=== PATIENT | male | born 1985 | race Two or more races ===

== ENCOUNTER 2025-03-27 00:11 | Inpatient (IN) | payer OTHER, SELFPAY ==
[2025-03-27] VITALS (13 sets, daily range): BP systolic 97–121; BP diastolic 57–89; PULSE 86–124; RESP 14–99; TEMP 37.3–39; O2SAT 95–100; BMI 24.3; BMI 21.4
--- NOTE | 2025-03-27 00:36 | PD.EDSEIZ ---
ED Seizures RME/HPI General Chief Complaint: Seizure Stated Complaint: SEIZURES Arrival date/time: 03/27/25 00:11 RME / HPI RME / HPI Narrative: Dr. Linn?s Main ED Evaluation: 39yo male with a history of seizure disorder BIBA from home presents to the ED for a chief complaint of seizure. Per EMS, patient had 4 seizures today. Patient is on Keppra 1000mg BID, but it's unknown if he is compliant. Patient is a poor historian at this time and is not answering any questions. Related Data Home Medications ?Medication ?Instructions ?Recorded ?Confirmed No Known Home Medications 07/31/17 07/23/18 Allergies Allergy/AdvReac Type Severity Reaction Status Date / Time No Known Allergies Allergy Verified 07/22/18 18:00 Review of Systems Review of Systems ROS Unobtainable: other (unobtainable due to the patient being a poor historian) Past Medical History Past Medical History NEUROLOGIC: Positive Seizures CARDIAC: Negative Congestive Heart Failure RESPIRATORY: Negative Chronic Obstructive Pulmonary Disease (COPD) GENITOURINARY: Negative Renal Disease ENDOCRINE: Negative Diabetes Mellitus Type 1 or Diabetes Mellitus Type 2 Social History SMOKING STATUS: Unknown if ever smoked ED Exam Narrative Physical exam: Generally patient is alert and chronically ill-appearing, head is normocephalic atraumatic, eyes pupils equal round reactive to light, heart tachycardic rate with regular rhythm, lungs clear to auscultation equal bilaterally, abdomen soft bowel sounds present nondistended nontender, extremities show no edema, neurologic exam shows the patient to be alert follows commands seems to be somewhat confused but no obvious distress Course Course Course Narrative: CXR is ordered for determining the etiology of fever. Quality Measures none Orders Category Date Time Status Bedside COVID-19 Antigen Test NOW Care 03/27/25 02:17 Active IV [Insert IV] NOW Care 03/27/25 00:56 Active XR chest 1V portable Stat Exams 03/27/25 02:03 Taken Alcohol, Blood Medical Stat Lab 03/27/25 00:55 Completed CBC Stat Lab 03/27/25 00:55 Completed CMP [Comprehensive Metabolic Panel] Stat Lab 03/27/25 00:55 Completed Influenza A & B Rapid Panel Stat Lab 03/27/25 03:20 Completed UA [Urinalysis] Stat Lab 03/27/25 02:03 Ordered Acetaminophen Tab [Tylenol Tab] Med 03/27/25 03:29 Discontinued 650 mg PO X1 ONE Midazolam Inj [Versed Inj] Med 03/27/25 01:01 Discontinued 10 mg .ROUTE .STK-MED ONE Midazolam Inj [Versed Inj] Med 03/27/25 00:59 Discontinued 10 mg IVP X1 ONE Midazolam Inj [Versed Inj] Med 03/27/25 00:59 Discontinued 10 mg IVP X1 ONE levETIRAcetam INJ [Keppra Inj] Med 03/27/25 00:42 Discontinued 1,000 mg IVP X1 ONE Vital Signs Vital signs: Vital Signs Temperature 100.9 F H 03/27/25 00:20 Pulse Rate 118 H 03/27/25 00:20 Respiratory Rate 16 03/27/25 00:20 Blood Pressure 109/60 03/27/25 00:20 Pulse Oximetry (%) 98 03/27/25 00:20 Oxygen Delivery Method Room Air 03/27/25 00:20 Seizure MDM Narrative MDM Narrative:: Scribe Attestation: 03/27/25 Sheila Luis am scribing for and in the presence of Dr. Linn. Blood sugar taken by paramedics was 130. Patient has a grand mal seizure here in the emergency room. He did receive 10 mg of Versed IV as well as Keppra 1000 mg IV. Patient is supposed to be on Keppra 1000 mg twice a day. Patient's family at bedside is unsure whether or not the patient has been compliant. Patient is febrile here in the emergency room with a temperature 102 degrees. The patient and his were unaware that the patient had fever. Chest x-ray is clear. COVID is negative. Flu swabs are negative. Urinalysis was ordered but the patient has yet to give a urine sample. Abdominal exam is benign. The seizure here in the emergency room is the fifth seizure today according to the patient's . The fever could be lowering the seizure threshold. Patient has a history of alcohol abuse and it was hard for the patient to tell me when the last time he drink alcohol was. Patient's alcohol level was less than 3. I did discuss this case with the hospitalist and because the patient has had 5 seizures today I believe the patient needs to come into the hospital for further treatment and evaluation and neurology consultation. Patient data External records reviewed:: [facility] previous records (Per chart review, patient was seen here on 07/22/18 for alcohol use disorder.) Clinical information provided by:: patient Social determinants that could affect healthcare access:: none Patient has the following chronic illnesses:: seizure disorder How is presenting disease/condition affected by chronic disease/condition?: caused by Evaluation data The following diagnostics were reviewed and interpreted by me:: lab results and radiology exam(s) Lab and/or radiology exams considered but not ordered:: none Interpretation Summary: See MDM Medications / Prescriptions Medications or Prescriptions considered but not ordered:: none Medication administrations:: Medication Administration History Discontinued Medications Acetaminophen (Acetaminophen 325 Mg Tablet) 650 mg PO X1 ONE Stop: 03/27/25 03:30 Last Admin: 03/27/25 03:38 Dose: 650 mg Documented By: MICHI Levetiracetam (Levetiracetam Inj 100 Mg/Ml Vial 5ml) 1,000 mg IVP X1 ONE Stop: 03/27/25 00:43 Last Admin: 03/27/25 01:07 Dose: 1,000 mg Documented By: MICHI Midazolam HCl (Midazolam Inj 1 Mg/Ml Vial 2 Ml) 10 mg IVP X1 ONE Stop: 03/27/25 01:00 Last Admin: 03/27/25 01:09 Dose: Not Given Documented By: JAYSHREE Non-Admin Reason: Discontinued Midazolam HCl (Midazolam Inj 1 Mg/Ml Vial 2 Ml) 10 mg IVP X1 ONE Stop: 03/27/25 01:00 Last Admin: 03/27/25 01:02 Dose: 10 mg Documented By: JAYSHREE Comments: SEIZURE ACTIVITY Midazolam HCl (Midazolam Inj 1 Mg/Ml Vial 2 Ml) Confirm Administered Dose 10 mg .ROUTE .STK-MED ONE Stop: 03/27/25 01:02 Last Admin: 03/27/25 01:09 Dose: Not Given Documented By: JAYSHREE Non-Admin Reason: Override Medication see above Consultations Consultation(s) initiated? (list below): Yes Diagnosis Seizure Differential Diagnosis: other (See MDM) Most likely diagnosis given after review of the tests above:: see clinical impression below Admission Indicated Admission indicated?: indicated Admission Request Was there a request for admission?: Yes Admission Attestation Admission request attestation: Discussed case with [] from Hospitalist service regarding admission. Discussed patients ED course, exam findings, labs, and radiology results. The Hospitalist [agrees,declines] to accept the patient for admission. Disposition Plan Disposition Plan: Admit Critical Care Time Critical Care Time Critical Care Time: Yes Total Critical Care Time (min.): 35 Attestation: Excluding other billable procedures Discharge Plan Plan Patient Disposition: Admit Acute Care w/in Hospital Prescriptions/Referrals Prescriptions/Med Rec: No Action No Known Home Medications Referrals: No Primary/Family,Physician [Primary Care Provider] - In 1 week Problem List Clinical Impression: Recurrent seizures, Fever, unknown origin, Alcohol abuse Patient/Caregiver Discharge Instructions Print Language: Kazakh Stand Alone Forms: Magdalene Award Info., Patient Portal Info Letter
--- NOTE | 2025-03-27 01:00 | PC.NURSE ---
PT BEGAN SEIZING LASTING ABOUT A MINUTE. OXYGEN APPLIED. DR. ESCOBAR AWARE, MEDICATION ORDERED.
[2025-03-27] MEDS: MIDAZOLAM INJ 1 MG/ML VIAL 2 ML 10 MG IVP (01:02)
[2025-03-27] MEDS: levETIRAcetam INJ 100 MG/ML VIAL 5ML 1000 MG IVP (01:07)
[2025-03-27 01:19] LABS: Basophils # (Auto) 0.0 Thou/mm3 (0.0-0.2); Basophils % (Auto) 1 % (0-2.5); Eosinophils # (Auto) 0.0 Thou/mm3 (0.0-0.5); Eosinophils % (Auto) 0 % (0-10); Hematocrit 26.1 % (41.0-53.0); Hemoglobin 9.2 g/dL (13.5-16.0); Immature Granulocytes Auto 0.01 Thou/mm3 (0.00-0.00); Lymphocytes # (Auto) 0.2 Thou/mm3 (1.0-4.8); Lymphocytes % (Auto) 3 % (10-50); Mean Corpuscular HGB Conc 35.2 g/dl (31.0-37.0); Mean Corpuscular Hemoglobin 37.9 pg (25.0-35.0); Mean Corpuscular Volume 107 fL (80-100); Monocytes # (Auto) 0.7 Thou/mm3 (0.0-0.8); Monocytes % (Auto) 9 % (0-12); Neutrophils # (Auto) 7.3 Thou/mm3 (1.8-7.7); Neutrophils % (Auto) 88 % (37-80); Nucleated Red Blood Cell # 0.00 Thou/mm3 (0.00-0.00); Nucleated Red Blood Cell % 0 /100 WBC (0); Platelet Count 87 Thou/mm3 (140-440); RDW Standard Deviation 54.6 fL (35.1-43.9); Red Blood Count 2.43 Miln/mm3 (4.50-5.90); White Blood Count 8.3 Thou/mm3 (3.8-10.6)
[2025-03-27 01:38] LABS: Alanine Aminotransferase 35 U/L (10-49); Albumin, Serum 3.9 gm/dL (3.5-5.0); Albumin/Globulin Ratio 1.2 (1.2-2.2); Alkaline Phosphatase 142 U/L (46-116); Anion Gap 18 (7-16); Aspartate Amino Transferase 143 U/L (0-34); BUN/Creatinine Ratio 7 Ratio (12-20); Bilirubin,Total 1.3 mg/dL (0.3-1.2); Blood Urea Nitrogen 6 mg/dL (9-23); Calcium 8.5 mg/dL (8.3-10.6); Calcium (Corrected) 8.6 mg/dL (8.5-10.1); Carbon Dioxide 22.8 mMol/L (20.0-31.0); Chloride 96 mMol/L (98-107); Creatinine (Component) 0.9 mg/dL (0.6-1.3); Estimated Creatinine Clearance 112.7 mL/min (>60); Globulin 3.3 gm/dL (2.3-3.5); Glucose 124 mg/dL (74-106); Osmolality,Calculated 272 (275-295); Potassium 3.6 mMol/L (3.4-5.1); Sodium 137 mMol/L (136-145); Total Protein 7.2 gm/dL (5.7-8.2); eGFR > 60 See Note
--- NOTE | 2025-03-27 02:03 | XR_ITS ---
EXAMINATION: AP chest single view TECHNIQUE: AP portable semiupright chest single view Date and time: March 27, 2025, 0205 hours INDICATIONS: Chest pain today. FINDINGS: Normal heart size No pneumonia or pulmonary edema. Osseous structures are intact IMPRESSION: No pneumonia or pulmonary edema
[2025-03-27 03:14] LABS: Alcohol, Blood Medical < 3.0 mg/dL (0-10.0)
[2025-03-27] MEDS: ACETAMINOPHEN 325 MG TABLET 650 MG PO (03:38)
[2025-03-27 04:26] LABS: Influenza A Ag Negative; Influenza B Ag Negative
--- NOTE | 2025-03-27 04:56 | XR_ITS ---
Examination: CT brain head without contrast. 2-D sagittal coronal reconstructions Date and time of exam: March 27, 2025, 0555 hours INDICATIONS: Onset altered mental status today with seizures CTDI: vol (mGy): 49.4 DLP: (mGycm): 973 Technique: Multiple CT axial sections of the brain have been obtained, 5 mm slice thickness. Contrast has not been administered. 2-D sagittal, coronal reconstructions have been obtained Low dose protocols were performed. One or more of the following dose reduction techniques were used; automated exposure control, adjustment of the mA and/or KV according to patient size, use of iterative reconstruction technique. Findings: No significant ventricular enlargement. Encephalomalacia in the right temporal lobe Intra-axial or extra-axial hemorrhage density is not seen. No mass effect or midline shift Basal cisterns are not remarkable. Fourth ventricle is midline. Cranial vault intact. Impression: Negative for acute hemorrhage, mass effect or midline shift Consider elective brain MRI follow-up pre and post contrast seizure protocol
--- NOTE | 2025-03-27 04:56 | XR_ITS ---
Examination: Abdomen sonogram, complete Date and time of exam: March 27, 2025, 0523 hours INDICATIONS: Elevated liver function test on laboratory examination today . Technique: Multiple real-time grayscale transabdominal sonographic images of the abdomen have been obtained. Findings: Normal gallbladder Normal common bile duct 0.2 cm Pancreatic head 1.8 cm Aorta normal size Liver 17.3 cm fatty infiltration Normal hepatopetal portal venous flow Patent IVC Right kidney 9.7 cm renal cortex 2.0 cm Left kidney 10.5 cm renal cortex 1.7 cm No hydronephrosis Spleen 8.7 cm IMPRESSION: Normal gallbladder Normal common bile duct Hepatomegaly 17.3 cm fatty infiltration no focal liver lesions
--- NOTE | 2025-03-27 04:57 | PD.EDADDENDU ---
Emergency Room Addendum Addendum Narrative: The hospitalist are requesting a CAT scan of the brain in this patient with recurrent seizure with a history of seizure and without head trauma. The CAT scan of the brain was ordered. For a total bilirubin of 1.3 which is 0.1 above normal range in a patient who drinks alcohol, the hospitalist is asking for an abdominal ultrasound to be obtained prior to admission. This will be ordered. I did stress to the hospitalist team they will need to follow-up on these tests results.
[2025-03-27 05:13] LABS: Collection Type, Urine Voided
[2025-03-27 05:14] LABS: Lactate (Lactic Acid) 2.2 mMol/L (0.4-2.0)
[2025-03-27 05:20] LABS: Bacteria,Urine Rare; Bilirubin,Urine Negative (Negative); Blood,Urine 1+ (Negative); Clarity,Urine Clear (Clear/Hazy); Color,Urine Yellow (Lt Yel-Yel); Glucose, Urine Negative (Negative); Ketones,Urine Trace (Negative); Leukocyte Esterase,Urine Negative (Negative); Nitrite,Urine Negative (Negative); PH,Urine 7.0 (5.0-7.0); Protein,Urine 1+ (Neg - Trace); RBC,Urine < 1 /hpf (0-3); Specific Gravity,Urine 1.018 (1.001-1.035); Squamous Epithelial Cell,Urine < 1 /hpf (0-5); Urobilinogen,Urine Negative mg/dL (0.0-1.0); WBC,Urine 2 /hpf (0-5)
[2025-03-27 05:40] LABS: Creatine Kinase 452 U/L (34-171)
[2025-03-27] MEDS: RINGERS LACTATED 1000 ML 2,000 ML 999 ML IV (06:05)
--- NOTE | 2025-03-27 06:08 | PD.RESEVENT ---
Documentation for date of: 03/27/25 Event Note Event Note: Pending admission ED provider called primary team around 4:30AM for admission about patient. He has history of seizure disorder and alcohol use per chart review. Patient was brought in after experiencing breakthrough sizures. Reportedly had four seizures yesterday. He is prescribed keppra 1000mg BID though compliance is unclear. Patient's mother was at bedside and reports frequent falls and a fall prior to presentation where he fell in the bathtub and head his head. On physical exam, noted to have a swollen lip possibly from biting during seizure and a right perioribtal injury with stiched laceration. Could not properly assess current etoh intake due to patient's mentation as he is alert to name and person but not to place or date. Noted to have a fever of 102 in the ED. No lactic acid or blood cultures were drawn prior to our evaluation. No clear source of infection noted, will order additional imaging including CT head to rule out any bleed/acute findings, and abdominal u/s, along with blood cultures and lactic acid and part of infectious work up. Hospitalist day team to follow up with imaging and make decision regarding admission The patient's management plan was discussed with my attending physician Dr. Vicente. Radha Lee, PGY-2
[2025-03-27 07:33] LABS: Amphetamine/Methamp Scrn,U Negative (Negative); Barbiturate Screen,Urine Negative (Negative); Benzodiazepines Screen,Urine Positive (Negative); Benzoylecgonine Screen, Ur Negative (Negative); Fentanyl Screen,Urine Negative (Negative); Opiate Screen,Urine Negative (Negative); THC Screen,Urine Negative (Negative)
[2025-03-27 08:11] LABS: Reflex Lactate? Y
--- NOTE | 2025-03-27 08:30 | EKG_ITS ---
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
--- NOTE | 2025-03-27 08:47 | PC.SS ---
Patient Davon Blanchard is a 39 Year-old male admitted for Seizures. SS met with patient at bedside to discuss discharge plan and verify demographic information. Patient reports he lives with his life partner. Patient reports his mother, Tory Bradley is his surrogate decision maker, [phone]. Patient reports he does not utilize any source of DME to assist with ambulation. Patient is able to complete all ADL's independently. Patient reports he does have a PCP, however does not remember his name. At time of discharge patient's mother will provide transportation. Discharge Plan: Home Next of kin: mother, Tala Goddard
[2025-03-27 09:05] LABS: Lactic Acid, 3 HR 1.6 mMol/L (0.4-2.0)
--- NOTE | 2025-03-27 09:37 | ESHP_ITS ---
<Statement entered by Evelia Stapleton MD - 03/27/25 18:49> Patient was seen and examined at bedside. I agree on the assessment and plan on this note as documented by resident Dr Jacque Brown DO PGY1. Mr. Blanchard is a 39-year-old male with past medical history of seizure disorder on Keppra and alcohol abuse who presented to [facility] emergency department for seizure episode. Patient had witnessed seizure in the emergency department was given Versed, loading dose Keppra. There is a competent of alcohol use versus medical noncompliance, we will admit patient to hospital for further breakthrough seizure workup, patient did have a fever in the emergency department lactate was elevated likely secondary to seizure which resolved. No obvious source of infection, will hold IV antibiotics for now and continue to monitor. Patient on evaluation poor historian, history obtained from chart review. Will resume Keppra 1000 mg twice daily home medication, neurology Dr. Field consulted for recommendations. Seizure precautions and neurochecks every 4 hours. Will start patient on alcohol withdrawal CIWA protocol, will continue to monitor for fever. Otherwise patient is stable for med/tele, pending further workup. Case discussed with attending Dr. Lianne Hill MD PGY-2 Documentation for date of: 03/27/25 HPI History of Present Illness History of present illness: History of Present Illness: Davon Morocho 39y/o M, with PMH of seizure disorder and alcohol use, presented to the ED on 03/27/2025 for seizure activity after a fall. Per patient, he reports falling at home while shaving, after which he does not remember exactly what happened, but states that his mother saw him having a fall and seizures after which she brought patient to the hospital. ED documentation notes a breakthrough seizure in the bathtub resulting in head trauma. Patient noted that he did not drink for last few months, but according to ED, they were informed he drank a couple shots of alcohol. He initially endorsed headache, now resolved. Currently reports only mild numbness in his feet. Patient was admitted for management of breakthrough seizures. ED course: Vitals: 100.5 F, CT 118, RR 16, BP 109/60, 98% O2 saturation on room air. Labs: WBC 8.3, Hgb 9.2, sodium 137, potassium 0.6, carbon dioxide is 22.8 Anion gap 18, BUN 6, glucose 124, lactic acid 2.2, AST 237, ALT 35, ALP 142, creatinine kinase total 452, procalcitonin 0.51. Ethyl Alcohol <3 UA: Clear yellow urine, 1+ urine protein, urine blood +1, urine WBC 2, urine squamous epithelium<1, urine bacteria rare. CXR (03/27/2025): No pneumonia or pulmonary edema US abd (03/27/2025): Hepatomegaly 17.3 cm fatty infiltration no focal liver lesions Head CT (03/27/2025): Negative for acute hemorrhage, mass effect or midline shift In ED patient was given Tylenol 650 mg p.o. x 1, IV midazolam 10 mg x 3, IV Keppra 1000 mg x 1. Medical history: As stated above Surgical history: Denies Allergies: NKDA Medications: Pending official med rec Family history: Noncontributory Social history: Occasional smoking cigarettes, drinking alcohol in the past. Denies using other illicit drugs Review of Systems Review of Systems Narrative Review of Systems: All 12 systems assessed and the patient denies unless otherwise stated in HPI Exam Vital Signs Temp Pulse Resp BP Pulse Ox O2 Del Method 99.6 F 116 H 14 121/89 H 95 Room Air 03/27/25 07:10 03/27/25 07:10 03/27/25 07:10 03/27/25 07:10 03/27/25 07:10 03/27/25 07:10 Narrative Exam General: No acute distress, well nourished, AAO x3, though appears mildly confused. HENT: Normocephalic, atraumatic, hearing intact to conversation at normal volume, moist oral mucosa. swollen lip and healed laceration with a stitch over the right eyebrow Neck: Supple, non-tender, no JVD, no lymphadenopathy Lungs: Non-labored respirations, symmetric chest rise, Clear to auscultate bilaterally, No wheezing, rhonchi, crackles Heart: Peripheral pulses intact bilaterally, Regular Rate and Rhythm. Abdomen: Soft, non-tender, non-distended, no palpable masses Musculoskeletal: Normal range of motion and strength, No cyanosis or edema, No visible joint swelling Skin: Skin is warm, dry, no rashes or lesions. Psychiatric: Cooperative, appropriate mood and affect, Awake and alert, not agitated, Neuro: Cranial nerves II-XII grossly intact. Strength 5/5 throughout. Numbness on bilateral feet. Results: Labs 03/28/25 04:39 03/28/25 04:39 Labs: Short CBC 03/27/25 Range/Units 00:55 WBC 8.3 (3.8-10.6) Thou/mm3 Hgb 9.2 L (13.5-16.0) g/dL Hct 26.1 L (41.0-53.0) % Plt Count 87 L (140-440) Thou/mm3 BMP 03/27/25 00:55 Sodium 137 Potassium 3.6 Chloride 96 L Carbon Dioxide 22.8 BUN 6 L Creatinine 0.9 Glucose 124 H Calcium 8.5 Cardiac Enzymes 03/27/25 Range/Units 05:09 Total Creatine Kinase 452 H (34-171) U/L Liver Function 03/27/25 Range/Units 00:55 Total Bilirubin 1.3 H (0.3-1.2) mg/dL AST 143 H (0-34) U/L ALT 35 (10-49) U/L Alkaline Phosphatase 142 H (46-116) U/L Albumin 3.9 (3.5-5.0) gm/dL Urine 03/27/25 Range/Units 04:50 Urine Color Yellow (Lt Yel-Yel) Urine Clarity Clear (Clear/Hazy) Urine pH 7.0 (5.0-7.0) Ur Specific [place] 1.018 (1.001-1.035) Urine Protein 1+ A (Neg - Trace) Urine Glucose (UA) Negative (Negative) Quality Measures Quality Measures none Medications Home Medications and Allergies Home Medications ?Medication ?Instructions ?Recorded ?Confirmed ?Type levetiracetam 1,000 mg tablet 1,000 mg PO Q12H 5 03/27/25 History Allergies Allergy/AdvReac Type Severity Reaction Status Date / Time No Known Allergies Allergy Verified 07/22/18 18:00 Visit Medications Acetaminophen (Acetaminophen 325 Mg Tablet) 650 mg PO Q6H PRN PRN Reason: Fever >100.4, Pain 1-3 Stop: 04/26/25 08:21 Diazepam (Diazepam Inj 5 Mg/Ml Vial 2 Ml) 20 mg IVP Q5MIN PRN PRN Reason: Seizures Stop: 04/01/25 05:36 Heparin Sodium (Porcine) (Heparin Sod Inj 5000 Unit/Ml Vial) 5,000 unit SC Q12HR [facility] Stop: 04/10/25 08:59 Lactated Ringer's (Lactated Ringers) 1,000 mls @ 75 mls/hr IV .[id number] [facility] Stop: 03/27/25 21:53 Levetiracetam (Levetiracetam 250 Mg Tablet) 500 mg PO BID CK Stop: 04/26/25 08:59 Ondansetron HCl (Ondansetron Inj 2 Mg/Ml Inj 2 Ml) 4 mg IVP Q6H PRN; Protocol PRN Reason: NAUSEA OR VOMITING Stop: 04/26/25 08:21 Discontinued Medications Acetaminophen (Acetaminophen 325 Mg Tablet) 650 mg PO X1 ONE Stop: 03/27/25 03:30 Last Admin: 03/27/25 03:38 Dose: 650 mg Lactated Ringer's (Lactated Ringers) 2,000 mls @ 999 mls/hr IV .Q2H1M ONE Stop: 03/27/25 07:42 Last Infusion: 03/27/25 08:06 Dose: Infused Levetiracetam (Levetiracetam Inj 100 Mg/Ml Vial 5ml) 1,000 mg IVP X1 ONE Stop: 03/27/25 00:43 Last Admin: 03/27/25 01:07 Dose: 1,000 mg Midazolam HCl (Midazolam Inj 1 Mg/Ml Vial 2 Ml) 10 mg IVP X1 ONE Stop: 03/27/25 01:00 Last Admin: 03/27/25 01:09 Dose: Not Given Midazolam HCl (Midazolam Inj 1 Mg/Ml Vial 2 Ml) 10 mg IVP X1 ONE Stop: 03/27/25 01:00 Last Admin: 03/27/25 01:02 Dose: 10 mg Assessment & Plan Plan Ms Blanchard Davon 39y/o M, with PMH of seizure disorder and alcohol use, presented to the ED on 03/27/2025 for seizure activity after a fall. Patient was admitted for management of breakthrough seizures. #Seizure, tonic clonic #Episode of fall #History of Seizure disorder -Witnessed seizure with whole body shaking, Postictal confusion/headache/Fatigue, abrupt onset, Amnesia to the event. Lower lip trauma, However, no tongue bite. -Head CT (03/27/2025): Negative for acute hemorrhage, mass effect or midline shift -Elevated creatinine kinase total 452, and lactic acid 2.2 Plan: -IVF LR 75ml/hr -Resumed Home med Keppra 1000mg po bid -Consulted Neurology, , appreciate recommendations -Seizure precautions -Nurse Swallow Screen -Neuro Check q4hr -Strict I&Os #Alcohol withdrawl, possible #Hx of Alcohol Use disorder #Transaminitis -Patient denies consuming alcohol for months, but previously in ED, patient noted that he drank sips of alcohol -AST 237, ALT 35, ALP 142 -Ethyl Alcohol <3 Plan: -On CIWA protocol: Score 2-6: Lorazepam 0.5mg po q4hr prn, Score 7-11: Lorazepam 1mg po q4hr prn. Score 12-15: Lorazepam 2mg po q4hr prn -Diazepam 20mg IV q5 min prn -Folic acid 1mg po bid -Thiamine 100mg po bid #Fever, Unknown Origin -Fever peaked 102.2 F -WBC: 8.3, Procalcitonin: 0.51 -UA: Clear yellow urine, 1+ urine protein, urine blood +1, urine WBC 2, urine squamous epithelium<1, urine bacteria rare. -CXR (03/27/2025): No pneumonia or pulmonary edema -US abd (03/27/2025): Hepatomegaly 17.3 cm fatty infiltration no focal liver lesions -Influenza Vaccine [id number] 0.5 ml IM x1 given Plan: -IVF LR 75ml/hr -Acetaminophen 650mg po q6hr prn -BCx pending Disposition: Med surg Diet: Regular Diet GI prophylaxis: Not indicated DVT prophylaxis: Heparin 5000units SC q12hr Code: FULL Assessment and plan discussed with my attending physician Dr. Garcia and Dr. Stapleton (PGY-2) Dr. Brown (PGY-1) - Internal medicine resident Attending Provider Attestation/Addendum Lianne Singh, , attest that I was physically present for the laureano portions of the service and evaluated the patient with the resident and I reviewed and discussed the case with the resident and agree with the resident's findings and plans of care as documented above Patient is a 39-year-old male with past medical history of seizure disorder and alcohol use who was brought to the ED due to seizure that occurred this morning. Patient states that he had gone to the bathroom and subsequently had a fall due to seizure. Patient cannot recall the events, but stated that it was witnessed. He does have a small laceration that was repaired in the ED over his right brow. Patient states that it has been a couple minutes since his last seizure. However, there has been times that he missed Keppra doses. Patient states that he has not been drinking, but bedside nurse states that he endorsed having taking a couple shots of alcohol prior to presentation. Will admit patient to med/telemetry for further workup and medical management of breakthrough seizure. He is also noted to have a fever on presentation. However, there are no clear sources of infection. Will follow-up with blood cultures. Patient denies any cough, productive sputum, chills, rashes, chest pain, shortness of breath, abdominal pain, diarrhea, dysuria otherwise. Will monitor under [facility] protocol home Keppra. Suspect that the patient's breakthrough seizure is likely due to noncompliance versus acute alcohol withdrawal. Patient is in no acute distress on exam, thin and with poor hygiene, denies any visual/tactile/auditory hallucinations. He reports some headache due to the laceration over his right brow, but is clean, dry and intact. Breath sounds are clear to auscultation b/l.
[2025-03-27 09:39] LABS: Procalcitonin 0.51 ng/ml (0.0-0.49)
[2025-03-27] MEDS: RINGERS LACTATED 1000 ML 1,000 ML 75 ML IV (09:46)
[2025-03-27] MEDS: HEPARIN SOD INJ 5000 UNIT/ML VIAL SC ×2 (09:52→20:12)
[2025-03-27] MEDS: THIAMINE 100 MG TABLET PO ×2 (10:17→20:11)
[2025-03-27] MEDS: FOLIC ACID 1 MG TABLET PO ×2 (10:17→20:11)
--- NOTE | 2025-03-27 20:00 | PC.NURSE ---
Dr. Kaur okayed heparin with PLT 87 and HGB 9.2
--- NOTE | 2025-03-27 20:36 | ESCONSULT_ITS ---
HPI Data of Consult Requesting Physician: Lianne Garcia DO Admitting Provider: Lianne Garcia DO Attending Provider: Giuseppe Field MD Primary Care Provider: Physician No Primary/Family Consult Narrative Reason for consult: Breakthrough seizure History of present illness: Mr. Blanchard is a 39-year-old male with past history of seizure disorder on Keppra 1 g twice daily, who is from [place] and follows up with neurology in [place]. He also has intermittent heavy alcohol use episodes. Patient had a recent seizure for which she was brought to [facility] and neurology consulted. 1899: Patient seen and examined at bedside, stable with good affect. He is AO x 1, unsure why he is in [place], thought he was in [facility]. He states that his mother lives in [place] and visited him this morning. Patient is somewhat confused and gets startled easily. Patient was counseled extensively on alcohol use, and regarding compliance with home Keppra. He shows good comprehension. Breakthrough seizure likely in the setting of poor compliance and heavy alcohol use. Continue home dose Keppra and monitor at this time. cc:: cc: Lianne Garcai DO Review of Systems Review of Systems Narrative Review of Systems: GENERAL: Denies fevers/chills, diaphoresis. HEENT: Denies headache or visual/hearing changes. Denies nasal discharge. NEURO: Denies unusual weakness or difficulty speaking. CARDIO: Denies chest pain, palpitations. PULM: Denies SOB, cough, wheezing. GI: Denies abdominal pain, no N/V, no C/D. Reports having BMs URO: Denies burning/itching/pain/urinary changes. MSK/EXT/SKIN: Denies skeletal/muscle pain, changes in upper or lower extremities, itchiness, superficial skin chnages. PSYCH: Cooperative, pleasant mood & affect. The rest of the review of systems is otherwise negative. Exam Vital Signs Temp Pulse Resp BP Pulse Ox O2 Del Method 99.4 F 90 18 104/76 95 Room Air 03/27/25 16:00 03/27/25 16:00 03/27/25 16:00 03/27/25 16:00 03/27/25 16:00 03/27/25 16:00 Narrative Exam Constitutional Alert, oriented x1 only to self, comfortable HEENT Vision grossly intact, PERRLA. Trachea midline. Right eyebrow laceration, right lower lip hematoma Respiratory Chest normal on inspection and clear to auscultation bilaterally. Cardiovascular S1 and S2 audible, RRR. No murmurs or carotid bruit. No gross JVD. Abdominal Soft and BS + ; non tender to palpation in all quadrants. Genitourinary No bladder tenderness, no flank pain. Normal to palpation. Musculoskeletal Extremities tone within normal limits. No LE edema. Neurological CN II - XII grossly intact. Extremity motor and sensation grossly intact. Skin Warm, dry and intact. No apparent lesions. Psychiatric Patient has a good affect, is cooperative. Results Labs 03/27/25 00:55 03/27/25 00:55 Labs: Short CBC 03/27/25 Range/Units 00:55 WBC 8.3 (3.8-10.6) Thou/mm3 Hgb 9.2 L (13.5-16.0) g/dL Hct 26.1 L (41.0-53.0) % Plt Count 87 L (140-440) Thou/mm3 BMP 03/27/25 00:55 Sodium 137 Potassium 3.6 Chloride 96 L Carbon Dioxide 22.8 BUN 6 L Creatinine 0.9 Glucose 124 H Calcium 8.5 Cardiac Enzymes 03/27/25 Range/Units 05:09 Total Creatine Kinase 452 H (34-171) U/L Liver Function 03/27/25 Range/Units 00:55 Total Bilirubin 1.3 H (0.3-1.2) mg/dL AST 143 H (0-34) U/L ALT 35 (10-49) U/L Alkaline Phosphatase 142 H (46-116) U/L Albumin 3.9 (3.5-5.0) gm/dL Urine 03/27/25 Range/Units 04:50 Urine Color Yellow (Lt Yel-Yel) Urine Clarity Clear (Clear/Hazy) Urine pH 7.0 (5.0-7.0) Ur Specific [place] 1.018 (1.001-1.035) Urine Protein 1+ A (Neg - Trace) Urine Glucose (UA) Negative (Negative) Quality Measures Quality Measures none Medications Home Medications and Allergies Home Medications ?Medication ?Instructions ?Recorded ?Confirmed ?Type levetiracetam 1,000 mg tablet 1,000 mg PO Q12H 5 03/27/25 History Allergies Allergy/AdvReac Type Severity Reaction Status Date / Time No Known Allergies Allergy Verified 07/22/18 18:00 Visit Medications Acetaminophen (Acetaminophen 325 Mg Tablet) 650 mg PO Q6H PRN PRN Reason: Fever >100.4, Pain 1-3 Stop: 04/26/25 08:21 Diazepam (Diazepam Inj 5 Mg/Ml Vial 2 Ml) 20 mg IVP Q5MIN PRN PRN Reason: Seizures Stop: 04/01/25 05:36 Diazepam (Diazepam Inj 5 Mg/Ml Vial 2 Ml) 5 mg IVP X1 PRN PRN Reason: Breakthrough Agitation Folic Acid (Folic Acid 1 Mg Tablet) 1 mg PO BID [facility] Stop: 04/01/25 09:44 Last Admin: 03/27/25 20:11 Dose: 1 mg Heparin Sodium (Porcine) (Heparin Sod Inj 5000 Unit/Ml Vial) 5,000 unit SC Q12HR CK Stop: 04/10/25 08:59 Last Admin: 03/27/25 20:12 Dose: 5,000 unit Lactated Ringer's (Lactated Ringers) 1,000 mls @ 75 mls/hr IV .[id number] [facility] Stop: 03/27/25 21:53 Last Admin: 03/27/25 09:46 Dose: 75 mls/hr Levetiracetam (Levetiracetam 250 Mg Tablet) 1,000 mg PO BID [facility] Stop: 04/26/25 20:59 Last Admin: 03/27/25 20:12 Dose: 1,000 mg Lorazepam (Lorazepam 0.5 Mg Tablet) 0.5 mg PO Q4HR PRN PRN Reason: CIWA Score 2-6 Stop: 04/01/25 09:42 Lorazepam (Lorazepam 0.5 Mg Tablet) 1 mg PO Q4HR PRN PRN Reason: CIWA SCORE 7-11 Stop: 04/01/25 09:42 Lorazepam (Lorazepam 0.5 Mg Tablet) 2 mg PO Q4HR PRN PRN Reason: CIWA SCORE 12-15 Stop: 04/01/25 09:42 Ondansetron HCl (Ondansetron Inj 2 Mg/Ml Inj 2 Ml) 4 mg IVP Q6H PRN; Protocol PRN Reason: NAUSEA OR VOMITING Stop: 04/26/25 08:21 Thiamine HCl (Thiamine 100 Mg Tablet) 100 mg PO BID CK Stop: 04/01/25 09:44 Last Admin: 03/27/25 20:11 Dose: 100 mg Discontinued Medications Acetaminophen (Acetaminophen 325 Mg Tablet) 650 mg PO X1 ONE Stop: 03/27/25 03:30 Last Admin: 03/27/25 03:38 Dose: 650 mg Lactated Ringer's (Lactated Ringers) 2,000 mls @ 999 mls/hr IV .Q2H1M ONE Stop: 03/27/25 07:42 Last Infusion: 03/27/25 08:06 Dose: Infused Influenza Virus Vaccine Quadrival (Influenza Virus 0.5 Ml Syringe ) 0.5 ml IMi .ONCE ONE Stop: 03/27/25 11:02 Levetiracetam (Levetiracetam Inj 100 Mg/Ml Vial 5ml) 1,000 mg IVP X1 ONE Stop: 03/27/25 00:43 Last Admin: 03/27/25 01:07 Dose: 1,000 mg Levetiracetam (Levetiracetam 250 Mg Tablet) 500 mg PO BID CK Stop: 04/26/25 08:59 Last Admin: 03/27/25 09:45 Dose: 500 mg Midazolam HCl (Midazolam Inj 1 Mg/Ml Vial 2 Ml) 10 mg IVP X1 ONE Stop: 03/27/25 01:00 Last Admin: 03/27/25 01:09 Dose: Not Given Midazolam HCl (Midazolam Inj 1 Mg/Ml Vial 2 Ml) 10 mg IVP X1 ONE Stop: 03/27/25 01:00 Last Admin: 03/27/25 01:02 Dose: 10 mg Assessment & Plan Plan Mr. Blanchard is a 39-year-old male admitted for breakthrough seizure in the setting of poor compliance and heavy alcohol use. Breakthrough seizures Ground-level fall Likely in the setting of History of seizure disorder Poor antiepileptic compliance Alcohol use disorder Fever of unknown origin Recommendations: - Continue CIWA protocol, patient appears very jittery/anxious - Continue home Keppra 1 g twice daily. Patient is unlikely to need an increased dose, breakthrough seizure likely in the setting of poor compliance. - He is from [place], and follows up with neurologist in [place]. Was reoriented to time, place, person. Recommend primary team to follow-up with mother regarding seizure disorder history. - Will follow-up neuroimaging and possible EEG. - Monitor for hyperthermia, use antipyretics to prevent fevers Thank you for the consult. Neurology will continue to follow the case with you Plan of care discussed with attending Neurologist Dr Field, - Manuel Bland M.D. PGY3 Disclaimer: Minor errors in junior legal secretary may be present as this note was dictated using voice recognition software. Attending Provider Attestation/Addendum I personally have seen and examined the patient at the bedside and agree with resident's findings, assessment and plan of care. Will continue with the Keppra and CIWA protocol. Follow seizure precautions. Follow-up with EEG.
[2025-03-28] VITALS (11 sets, daily range): BP systolic 104–122; BP diastolic 55–100; PULSE 73–190; RESP 16–99; TEMP 36.1–37.4; O2SAT 95–99
[2025-03-28 05:34] LABS: Basophils # (Auto) 0.1 Thou/mm3 (0.0-0.2); Basophils % (Auto) 1 % (0-2.5); Eosinophils # (Auto) 0.2 Thou/mm3 (0.0-0.5); Eosinophils % (Auto) 2 % (0-10); Hematocrit 25.6 % (41.0-53.0); Hemoglobin 9.1 g/dL (13.5-16.0); Immature Granulocytes Auto 0.02 Thou/mm3 (0.00-0.00); Immature Reticulocyte Fraction 18.1 % (2.3-13.4); Lymphocytes # (Auto) 1.1 Thou/mm3 (1.0-4.8); Lymphocytes % (Auto) 15 % (10-50); Mean Corpuscular HGB Conc 35.5 g/dl (31.0-37.0); Mean Corpuscular Hemoglobin 39.1 pg (25.0-35.0); Mean Corpuscular Volume 110 fL (80-100); Monocytes # (Auto) 0.7 Thou/mm3 (0.0-0.8); Monocytes % (Auto) 9 % (0-12); Neutrophils # (Auto) 5.6 Thou/mm3 (1.8-7.7); Neutrophils % (Auto) 73 % (37-80); Nucleated Red Blood Cell # 0.00 Thou/mm3 (0.00-0.00); Nucleated Red Blood Cell % 0 /100 WBC (0); RDW Standard Deviation 54.9 fL (35.1-43.9); Red Blood Count 2.33 Miln/mm3 (4.50-5.90); Reticulocyte % (Auto) 2.8 % (0.5-1.5); Reticulocyte Absolute Auto 65.5 Biln/L (25.0-75.0); Reticulocyte Hgb Content 40.7 pg (28.0-35.0); White Blood Count 7.7 Thou/mm3 (3.8-10.6)
[2025-03-28 05:39] LABS: INR 1.2 (0.9-1.3); Partial Thromboplastin Time 31.0 Seconds (22.0-36.0); Prothrombin Time 13.0 Seconds (9.0-12.2)
[2025-03-28 06:35] LABS: Platelet Count 95 Thou/mm3 (140-440)
[2025-03-28 06:54] LABS: Folate 16.84 ng/mL (>5.38); Vitamin B12 406 pg/mL (211-911)
[2025-03-28 07:34] LABS: Path Review Blood Smear Sent to Pathologist
[2025-03-28 08:01] LABS: Alanine Aminotransferase 31 U/L (10-49); Albumin, Serum 3.5 gm/dL (3.5-5.0); Albumin/Globulin Ratio 1.2 (1.2-2.2); Alkaline Phosphatase 109 U/L (46-116); Anion Gap 12 (7-16); Aspartate Amino Transferase 107 U/L (0-34); BUN/Creatinine Ratio 8 Ratio (12-20); Bilirubin,Total 2.5 mg/dL (0.3-1.2); Blood Urea Nitrogen < 5 mg/dL (9-23); Calcium 8.6 mg/dL (8.3-10.6); Calcium (Corrected) 9.0 mg/dL (8.5-10.1); Carbon Dioxide 25.8 mMol/L (20.0-31.0); Chloride 99 mMol/L (98-107); Creatinine (Component) 0.6 mg/dL (0.6-1.3); Estimated Creatinine Clearance 156.8 mL/min (>60); Free T4 (Free Thyroxine) 1.28 ng/dL (0.89-1.76); Globulin 2.9 gm/dL (2.3-3.5); Glucose 62 mg/dL (74-106); Magnesium 1.1 mg/dL (1.6-2.6); Osmolality,Calculated 269 (275-295); Phosphorous 1.8 mg/dL (2.4-5.1); Potassium 3.2 mMol/L (3.4-5.1); Sodium 137 mMol/L (136-145); Thyroid Stimulating Hormone 2.89 uIU/mL (0.55-4.78); Total Protein 6.4 gm/dL (5.7-8.2); eGFR > 60 See Note
[2025-03-28 08:07] LABS: Misc Send Out* See Sep Rpt
--- NOTE | 2025-03-28 08:08 | PC.NURSE ---
Dr Alex ok to give heparin at 0900. aware of plt 95
[2025-03-28] MEDS: FOLIC ACID 1 MG TABLET PO ×2 (08:28→20:33)
[2025-03-28] MEDS: THIAMINE 100 MG TABLET PO ×2 (08:28→20:33)
[2025-03-28] MEDS: HEPARIN SOD INJ 5000 UNIT/ML VIAL SC ×2 (08:29→20:28)
[2025-03-28 08:32] LABS: Cardiac Risk Estimate 1.9 RATIO (4.0-6.7); Cholesterol 199 mg/dL (132-200); HDL Cholesterol 106 mg/dL (40-60)
[2025-03-28 08:43] LABS: Ferritin 566 ng/mL (10.5-307.3); Iron 124 mcg/dL (65-175); Percent Iron Saturation 55 % (20-55); Total Iron Binding Capacity 223 mcg/dL (250-425); Unsaturated Iron Binding 99 (225-295)
[2025-03-28 09:08] LABS: LDL Cholesterol,Calculated 75 mg/dL (0-130); Triglycerides 88 mg/dL (30-150)
[2025-03-28] MEDS: Magnesium Sulfate 4 GM Ivpb 4 GM/50 ML BAG IV ×2 (09:57→13:53)
[2025-03-28] MEDS: POTASSIUM CHL 10 mEq IVPB 10 MEQ/100 ML BAG 100 MEQ IV ×4 (09:57→13:53)
[2025-03-28] MEDS: NAPH,KPH MBDB 1 PACKET (1.5 GM) PO (09:57)
--- NOTE | 2025-03-28 14:35 | ESPR_ITS ---
<Statement entered by Raffy Alex MD - 03/28/25 16:11> Patient seen and examined at bedside. I discussed and supervised with the management retail intern physician who took care of this patient. I personally saw and examined the patient. I agree with most of the assessment and plan. Patient calm and cooperative at bedside. Pending EEG and neuro recs, to be completed today. Likely DC tomorrow. Plan of care discussed with attending Dr. Garcia. Raffy Alex MD PGY-2 Documentation for date of: 03/28/25 Subjective Subjective Interval history: Patient lies comfortably in bed. The highest CIWA score was 8 this morning. Patient used lorazepam 1 mg p.o. Q 4-hour x 1. Continue on Keppra 1000 mg p.o. twice daily per neurology recommendations, EEG has been ordered. Patient's breakthrough seizure likely due to poor compliance of anti-seizure medications and heavy alcohol use. No Overnight events. Labs reviewed and patient examined at the bedside. Denies chest pain, palpation, SOB, abdominal pain, N/V, fevers or chills. Exam Vital Signs Temp Pulse Resp BP Pulse Ox O2 Del Method 98.5 F 87 19 108/75 98 Room Air 03/28/25 12:00 03/28/25 12:00 03/28/25 12:00 03/28/25 12:00 03/28/25 12:00 03/28/25 12:00 Narrative Exam General: No acute distress, well nourished, AAO x3 HENT: Normocephalic, atraumatic, hearing intact to conversation at normal volume, moist oral mucosa. swollen lip and healed laceration with a stitch over the right eyebrow Neck: Supple, non-tender, no JVD, no lymphadenopathy Lungs: Non-labored respirations, symmetric chest rise, Clear to auscultate bilaterally, No wheezing, rhonchi, crackles Heart: Peripheral pulses intact bilaterally, Regular Rate and Rhythm. Abdomen: Soft, non-tender, non-distended, no palpable masses Musculoskeletal: Normal range of motion and strength, No cyanosis or edema, No visible joint swelling Skin: Skin is warm, dry, no rashes or lesions. Psychiatric: Cooperative, appropriate mood and affect, Awake and alert, not agitated, Neuro: Cranial nerves II-XII grossly intact. Strength 5/5 throughout. Objective Labs 03/29/25 04:40 03/29/25 04:40 Labs: Laboratory Results - last 24 hr 03/28/25 04:39 WBC 7.7 RBC 2.33 L Hgb 9.1 L Hct 25.6 L MCV 110 H MCH 39.1 H MCHC 35.5 RDW Std Deviation 54.9 H Plt Count 95 L Neut % (Auto) 73 Lymph % (Auto) 15 [facility] % (Auto) 9 Eos % (Auto) 2 Baso % (Auto) 1 Neut # (Auto) 5.6 Lymph # (Auto) 1.1 [facility] # (Auto) 0.7 Eos # (Auto) 0.2 Baso # (Auto) 0.1 Immature Gran # (Auto) 0.02 H Absolute Nucleated RBC 0.00 Immature Gran % 0 Nucleated RBC % 0 Smear Path Review Sent to Pathologist Retic Count (auto) 2.8 H Absolute Retic 65.5 Immature Retic Fraction 18.1 H Retic Hgb Content CHr 40.7 H PT 13.0 H INR 1.2 APTT 31.0 Sodium 137 Potassium 3.2 L Chloride 99 Carbon Dioxide 25.8 Anion Gap 12 BUN < 5 L Creatinine 0.6 Estim Creat Clear Calc 156.8 eGFR > 60 BUN/Creatinine Ratio 8 L Glucose [address] Glu mg/dL Cancelled Hemoglobin A1c Cancelled Calculated Osmolality 269 L Calcium 8.6 Corrected Calcium 9.0 Phosphorus 1.8 L Magnesium 1.1 L Iron 124 TIBC 223 L Iron Saturation 55 Unsat Iron Binding 99 L Ferritin 566 H Total Bilirubin 2.5 H D AST 107 H ALT 31 Alkaline Phosphatase 109 D Total Protein 6.4 Albumin 3.5 Globulin 2.9 Albumin/Globulin Ratio 1.2 Triglycerides 88 Cholesterol 199 LDL Cholesterol, Calc 75 HDL Cholesterol 106 H Cholesterol/HDL Ratio 1.9 L Vitamin B12 406 Folate 16.84 TSH 2.89 Free T4 1.28 Quality Measures Quality Measures none Assessment & Plan Assessment Current Active Medications: Generic Name Dose Route Start Last Admin Trade Name Freq PRN Reason Stop Dose Admin Acetaminophen 650 mg 03/27/25 08:22 Acetaminophen 325 Mg Tablet PO 04/26/25 08:21 Q6H PRN Fever >100.4, Pain 1-3 Diazepam 20 mg 03/27/25 05:37 Diazepam Inj 5 Mg/Ml Vial 2 Ml IVP 04/01/25 05:36 Q5MIN PRN Seizures Diazepam 5 mg 03/27/25 09:43 Diazepam Inj 5 Mg/Ml Vial 2 Ml IVP X1 PRN Breakthrough Agitation Folic Acid 1 mg 03/27/25 09:45 03/28/25 08:28 Folic Acid 1 Mg Tablet PO 04/01/25 09:44 1 mg BID CK Administration Heparin Sodium (Porcine) 5,000 unit 03/27/25 09:00 03/28/25 08:29 Heparin Sod Inj 5000 Unit/Ml Vial SC 04/10/25 08:59 5,000 unit Q12HR CK Administration Magnesium Sulfate 4 gm in 50 mls @ 12.5 mls/hr 03/28/25 14:00 03/28/25 13:53 Magnesium Sulfate Ivpb IV 03/28/25 17:59 12.5 mls/hr X1 ONE Administration Levetiracetam 1,000 mg 03/27/25 21:00 03/28/25 08:28 Levetiracetam 250 Mg Tablet PO 04/26/25 20:59 1,000 mg BID CK Administration Lorazepam 0.5 mg 03/27/25 09:43 Lorazepam 0.5 Mg Tablet PO 04/01/25 09:42 Q4HR PRN CIWA Score 2-6 Lorazepam 1 mg 03/27/25 09:43 03/28/25 10:54 Lorazepam 0.5 Mg Tablet PO 04/01/25 09:42 1 mg Q4HR PRN Administration CIWA SCORE 7-11 Lorazepam 2 mg 03/27/25 09:43 Lorazepam 0.5 Mg Tablet PO 04/01/25 09:42 Q4HR PRN CIWA SCORE 12-15 Ondansetron HCl 4 mg 03/27/25 08:22 Ondansetron Inj 2 Mg/Ml Inj 2 Ml IVP 04/26/25 08:21 Q6H PRN NAUSEA OR VOMITING Protocol Thiamine HCl 100 mg 03/27/25 09:45 03/28/25 08:28 Thiamine 100 Mg Tablet PO 04/01/25 09:44 100 mg BID CK Administration Plan Ms BlanchardDavon 39y/o M, with PMH of seizure disorder and alcohol use, presented to the ED on 03/27/2025 for seizure activity after a fall. Patient was admitted for management of breakthrough seizures. #Seizure, tonic clonic #Episode of fall #History of Seizure disorder -Witnessed seizure with whole body shaking, Postictal confusion/headache/Fatigue, abrupt onset, Amnesia to the event. Lower lip trauma, However, no tongue bite. -Head CT (03/27/2025): Negative for acute hemorrhage, mass effect or midline shift -Elevated creatinine kinase total 452, and lactic acid 2.2 -Patient's breakthrough seizure likely due to poor compliance of anti-seizure medications and heavy alcohol use. Plan: -Resumed Home med Keppra 1000mg po bid -Consulted Neurology, , appreciate recommendations -Seizure precautions -Nurse Swallow Screen -Neuro Check q4hr -Strict I&Os -Pending EEG. #Alcohol withdrawl, possible #Hx of Alcohol Use disorder #Transaminitis -Patient denies consuming alcohol for months, but previously in ED, patient noted that he drank sips of alcohol -AST 237, ALT 35, ALP 142 -Ethyl Alcohol <3 Plan: -On CIWA protocol: Score 2-6: Lorazepam 0.5mg po q4hr prn, Score 7-11: Lorazepam 1mg po q4hr prn. Score 12-15: Lorazepam 2mg po q4hr prn -Diazepam 20mg IV q5 min prn -Folic acid 1mg po bid -Thiamine 100mg po bid #Fever, Unknown Origin -Fever peaked 102.2 F -WBC: 8.3, Procalcitonin: 0.51 -UA: Clear yellow urine, 1+ urine protein, urine blood +1, urine WBC 2, urine squamous epithelium<1, urine bacteria rare. -CXR (03/27/2025): No pneumonia or pulmonary edema -US abd (03/27/2025): Hepatomegaly 17.3 cm fatty infiltration no focal liver lesions -Influenza Vaccine [id number] 0.5 ml IM x1 given -Blood Culture negative for 24hrs. Plan: -Acetaminophen 650mg po q6hr prn -BCx pending Disposition: Med surg Diet: Regular Diet GI prophylaxis: Not indicated DVT prophylaxis: Heparin 5000units SC q12hr Code: FULL Assessment and plan discussed with my attending physician Dr. Garcia and Dr. Alex (PGY-2) Dr. Brown (PGY-1) - Internal medicine resident Attending Provider Attestation/Addendum I, Lianne Garcia DO, attest that I was physically present for the laureano portions of the service and evaluated the patient with the resident and I reviewed and discussed the case with the resident and agree with the resident's findings and plans of care as documented above Patient seen and evaluated this AM. Mother is at bedside. Patient is much more alert today and states he is feeling well. No acute events overnight. He denies any visual/auditory or tactile hallucinations. He denies any headache, abdominal pain or nausea. No seizure episodes overnight. Patient today admits that he continues to drink, but has cut down. He denies having withdrawal symptoms at home. He remains on keppra and pending EEG. No seizures overnight and remains afebrile. Will f/u with final cultures and sensitivities. F/u with neurology recommendations. Anticipate DC within next 24h.
[2025-03-28] MEDS: DIAZEPAM INJ 5 MG/ML VIAL 2 ML IVP (18:00)
--- NOTE | 2025-03-28 19:03 | ESPR_ITS ---
Documentation for date of: 03/28/25 Subjective Subjective Interval history: Mr. Blanchard is a 39-year-old male with past history of seizure disorder on Keppra 1 g twice daily, who is from [place] and follows up with neurology in [place]. He also has intermittent heavy alcohol use episodes. Patient had a recent seizure for which she was brought to [facility] and neurology consulted. 03/27/2025 @1900: Patient seen and examined at bedside, stable with good affect. He is AO x 1, unsure why he is in [place], thought he was in [facility]. He states that his mother lives in [place] and visited him this morning. Patient is somewhat confused and gets startled easily. Patient was counseled extensively on alcohol use, and regarding compliance with home Keppra. He shows good comprehension. Breakthrough seizure likely in the setting of poor compliance and heavy alcohol use. Continue home dose Keppra and monitor at this time. 03/28/2025 @1800: Examined at bedside, appears to have worsening delirium, alert but completely and oriented to time, place, person. Patient underwent EEG testing yesterday, however due to multiple artifacts will need to repeat the study. Patient was advised to not move excessively during the recording, but poor comprehension at this time. Primary team advised to please start patient on scheduled Ativan as he continues to be highly agitated and PRNs may be insufficient or suboptimal for control. Will evaluate EEG and provide recommendations accordingly. Exam Vital Signs Temp Pulse Resp BP Pulse Ox O2 Del Method 97.3 F 90 19 122/55 L 95 Room Air 03/28/25 16:00 03/28/25 16:00 03/28/25 16:00 03/28/25 16:00 03/28/25 16:00 03/28/25 16:00 Narrative Exam Constitutional Alert, oriented x1 only to self, comfortable post diazepam. Worsening delirium HEENT Vision grossly intact, PERRLA. Trachea midline. Right eyebrow laceration, right lower lip hematoma Respiratory Chest normal on inspection and clear to auscultation bilaterally. Cardiovascular S1 and S2 audible, RRR. No murmurs or carotid bruit. No gross JVD. Abdominal Soft and BS + ; non tender to palpation in all quadrants. Genitourinary No bladder tenderness, no flank pain. Normal to palpation. Musculoskeletal Extremities tone within normal limits. No LE edema. Neurological CN II - XII grossly intact. Extremity motor and sensation grossly intact. Skin Warm, dry and intact. No apparent lesions. Psychiatric Patient has a good affect, is cooperative. Objective Labs 04/02/25 05:03 04/02/25 05:03 Labs: Laboratory Results - last 24 hr 03/28/25 04:39 WBC 7.7 RBC 2.33 L Hgb 9.1 L Hct 25.6 L MCV 110 H MCH 39.1 H MCHC 35.5 RDW Std Deviation 54.9 H Plt Count 95 L Neut % (Auto) 73 Lymph % (Auto) 15 [place] % (Auto) 9 Eos % (Auto) 2 Baso % (Auto) 1 Neut # (Auto) 5.6 Lymph # (Auto) 1.1 [place] # (Auto) 0.7 Eos # (Auto) 0.2 Baso # (Auto) 0.1 Immature Gran # (Auto) 0.02 H Absolute Nucleated RBC 0.00 Immature Gran % 0 Nucleated RBC % 0 Smear Path Review Sent to Pathologist Retic Count (auto) 2.8 H Absolute Retic 65.5 Immature Retic Fraction 18.1 H Retic Hgb Content CHr 40.7 H PT 13.0 H INR 1.2 APTT 31.0 Sodium 137 Potassium 3.2 L Chloride 99 Carbon Dioxide 25.8 Anion Gap 12 BUN < 5 L Creatinine 0.6 Estim Creat Clear Calc 156.8 eGFR > 60 BUN/Creatinine Ratio 8 L Glucose [address] Glu mg/dL Cancelled Hemoglobin A1c Cancelled Calculated Osmolality 269 L Calcium 8.6 Corrected Calcium 9.0 Phosphorus 1.8 L Magnesium 1.1 L Iron 124 TIBC 223 L Iron Saturation 55 Unsat Iron Binding 99 L Ferritin 566 H Total Bilirubin 2.5 H D AST 107 H ALT 31 Alkaline Phosphatase 109 D Total Protein 6.4 Albumin 3.5 Globulin 2.9 Albumin/Globulin Ratio 1.2 Triglycerides 88 Cholesterol 199 LDL Cholesterol, Calc 75 HDL Cholesterol 106 H Cholesterol/HDL Ratio 1.9 L Vitamin B12 406 Folate 16.84 TSH 2.89 Free T4 1.28 Quality Measures Quality Measures none Assessment & Plan Assessment Current Active Medications: Generic Name Dose Route Start Last Admin Trade Name Freq PRN Reason Stop Dose Admin Acetaminophen 650 mg 03/27/25 08:22 Acetaminophen 325 Mg Tablet PO 04/26/25 08:21 Q6H PRN Fever >100.4, Pain 1-3 Diazepam 20 mg 03/27/25 05:37 Diazepam Inj 5 Mg/Ml Vial 2 Ml IVP 04/01/25 05:36 Q5MIN PRN Seizures Folic Acid 1 mg 03/27/25 09:45 03/28/25 08:28 Folic Acid 1 Mg Tablet PO 04/01/25 09:44 1 mg BID CK Administration Heparin Sodium (Porcine) 5,000 unit 03/27/25 09:00 03/28/25 08:29 Heparin Sod Inj 5000 Unit/Ml Vial SC 04/10/25 08:59 5,000 unit Q12HR CK Administration Levetiracetam 1,000 mg 03/27/25 21:00 03/28/25 08:28 Levetiracetam 250 Mg Tablet PO 04/26/25 20:59 1,000 mg BID CK Administration Lorazepam 0.5 mg 03/27/25 09:43 Lorazepam 0.5 Mg Tablet PO 04/01/25 09:42 Q4HR PRN CIWA Score 2-6 Lorazepam 1 mg 03/27/25 09:43 03/28/25 10:54 Lorazepam 0.5 Mg Tablet PO 04/01/25 09:42 1 mg Q4HR PRN Administration CIWA SCORE 7-11 Lorazepam 2 mg 03/27/25 09:43 03/28/25 16:22 Lorazepam 0.5 Mg Tablet PO 04/01/25 09:42 2 mg Q4HR PRN Administration CIWA SCORE 12-15 Ondansetron HCl 4 mg 03/27/25 08:22 Ondansetron Inj 2 Mg/Ml Inj 2 Ml IVP 04/26/25 08:21 Q6H PRN NAUSEA OR VOMITING Protocol Thiamine HCl 100 mg 03/27/25 09:45 03/28/25 08:28 Thiamine 100 Mg Tablet PO 04/01/25 09:44 100 mg BID CK Administration Plan Mr. Blanchard is a 39-year-old male admitted for breakthrough seizure in the setting of poor compliance and heavy alcohol use. Breakthrough seizures Ground-level fall Likely in the setting of History of seizure disorder Poor antiepileptic compliance Alcohol use disorder Fever of unknown origin Recommendations: - Continue home Keppra 1g BID, unlikely to need a dose increase, breakthrough seizure likely in the setting of poor compliance. - Continue CIWA protocol. Recommend to please start patient on scheduled Ativan 2mg q4H as he continues to have high CIWA, PRNs may be insufficient or suboptimal for control. - Patient underwent EEG testing yesterday, however due to multiple artifacts will need to repeat the study. Will evaluate EEG once completed. Thank you for the consult. Neurology will continue to follow the case with you. Plan of care discussed with attending Neurologist Dr Field - Manuel Bland M.D. PGY3 Disclaimer: Minor errors in bookkeeping teacher may be present as this note was dictated using voice recognition software. Attending Provider Attestation/Addendum I personally have seen and examined the patient at the bedside and I agreed with the resident's findings, assessment and plan of care. Seizures are most related to alcohol withdrawal. follow-up with repeat EEG. Continue with the current Management.
--- NOTE | 2025-03-28 19:44 | PC.NURSE ---
MD SALGADO AND MD WONG NOTIFIED OF PT. HIGH CIWA SCORES, PULLING OUT LINES X2 DURING THE DAY, PREVIOUS 21 CIWA AND 25 CURRENT CIWA, AND NUMEROUS ATTEMPTS MADE BY PT. TO LEAVE HIS ROOM TO TRY AND GO OUTSIDE FOR A 'CIG'. PT. SEEN BY MD AT THE BEDSIDE WHERE UPON FURTHER ASSESSMENT, MD AGREED PT WAS VERY CONFUSED, DISORIENTED, AND NEEDED TO BE UPGRADED TO THE TELE FLOOR. MD WONG AND NAOMI ALSO NOTIFIED OF PREVIOUS ATTEMPTS MADE BY ANGELICA RN DURING THE DAYTIME TO UPGRADE THE PT. DURING THE FIRST CIWA ASSESSMENT THAT RESULTED OVER 20. ADVISED NO USE OF RESTRAINTS AT THIS POINT.
[2025-03-28] MEDS: MIDAZOLAM INJ 1 MG/ML VIAL 2 ML 4 MG IVP ×2 (20:28→22:55)
[2025-03-28] MEDS: PHENobarbital Inj 130 MG, SODIUM CHLORIDE 0.9% FLUSH 12 ML IVP (21:42)
--- NOTE | 2025-03-28 23:25 | PC.NURSE ---
Informed Dr Kaur of patient's heart rate 150-180, CIWA score of 25, patients tremors getting worse, no orders received at this time. stated he would come assess patient as soon as he can.
[2025-03-28] MEDS: DIAZEPAM INJ 5 MG/ML VIAL 2 ML 20 MG IVP (23:48)
[2025-03-29] VITALS (8 sets, daily range): BP systolic 98–124; BP diastolic 69–100; PULSE 63–141; RESP 7–98; TEMP 36.1–36.9; O2SAT 95–99
--- NOTE | 2025-03-29 02:40 | PD.RESEVENT ---
Documentation for date of: 03/29/25 Event Note Event Note: Rapid response at 11:30PM due to tachycardia HR was 190, 120/86, O2 99% on room air, afebrile. He was alert but confused. Oriented to self only, thought he was at [facility]. Wasn't able to express time properly. Soft wrist restraints were placed earlier in the night. Per nursing he was trying to get out of the bed repeatedly. CIWA went from 20 to 25. He was given IV Phenobarbital 520mg push along with IV diazepam 20mg push. Continue IV diazepam 10mg for CIWA 16-20 and scheduled librium 25mg TID. Agitation improved and HR was 120 at end of rapid. Radha Lee, PGY-2
[2025-03-29] MEDS: MIDAZOLAM INJ 1 MG/ML VIAL 2 ML 4 MG IVP ×2 (03:52→06:44)
[2025-03-29 06:07] LABS: Basophils # (Auto) 0.1 Thou/mm3 (0.0-0.2); Basophils % (Auto) 1 % (0-2.5); Eosinophils # (Auto) 0.3 Thou/mm3 (0.0-0.5); Eosinophils % (Auto) 5 % (0-10); Hematocrit 26.9 % (41.0-53.0); Hemoglobin 9.5 g/dL (13.5-16.0); Immature Granulocytes Auto 0.02 Thou/mm3 (0.00-0.00); Lymphocytes # (Auto) 1.3 Thou/mm3 (1.0-4.8); Lymphocytes % (Auto) 25 % (10-50); Mean Corpuscular HGB Conc 35.3 g/dl (31.0-37.0); Mean Corpuscular Hemoglobin 39.1 pg (25.0-35.0); Mean Corpuscular Volume 111 fL (80-100); Monocytes # (Auto) 0.6 Thou/mm3 (0.0-0.8); Monocytes % (Auto) 11 % (0-12); Neutrophils # (Auto) 3.2 Thou/mm3 (1.8-7.7); Neutrophils % (Auto) 59 % (37-80); Nucleated Red Blood Cell # 0.00 Thou/mm3 (0.00-0.00); Nucleated Red Blood Cell % 0 /100 WBC (0); Platelet Count 130 Thou/mm3 (140-440); RDW Standard Deviation 54.7 fL (35.1-43.9); Red Blood Count 2.43 Miln/mm3 (4.50-5.90); White Blood Count 5.4 Thou/mm3 (3.8-10.6)
[2025-03-29 06:31] LABS: Alanine Aminotransferase 30 U/L (10-49); Albumin, Serum 3.6 gm/dL (3.5-5.0); Albumin/Globulin Ratio 1.2 (1.2-2.2); Alkaline Phosphatase 117 U/L (46-116); Anion Gap 9 (7-16); Aspartate Amino Transferase 75 U/L (0-34); BUN/Creatinine Ratio 8 Ratio (12-20); Bilirubin,Total 1.9 mg/dL (0.3-1.2); Blood Urea Nitrogen < 5 mg/dL (9-23); Calcium 8.8 mg/dL (8.3-10.6); Calcium (Corrected) 9.1 mg/dL (8.5-10.1); Carbon Dioxide 27.8 mMol/L (20.0-31.0); Chloride 101 mMol/L (98-107); Creatinine (Component) 0.6 mg/dL (0.6-1.3); Estimated Creatinine Clearance 156.8 mL/min (>60); Globulin 3.0 gm/dL (2.3-3.5); Glucose 76 mg/dL (74-106); Magnesium 1.8 mg/dL (1.6-2.6); Osmolality,Calculated 271 (275-295); Phosphorous 1.6 mg/dL (2.4-5.1); Potassium 3.2 mMol/L (3.4-5.1); Sodium 138 mMol/L (136-145); Total Protein 6.6 gm/dL (5.7-8.2); eGFR > 60 See Note
--- NOTE | 2025-03-29 07:57 | ESPR_ITS ---
<Statement entered by Evelia Stapleton MD - 03/29/25 19:38> Patient was seen and examined at bedside. I agree on the assessment and plan on this note as documented by resident Dr Jacque Brown DO PGY1. 39-year-old male with past medical history of seizure disorder on Keppra and alcohol use was admitted for breakthrough seizure, however overnight patient started having worsening alcohol withdrawal symptoms required around 650 mg of phenobarbital total multiple doses of IV Valium and was started on Librium 25 p.o. 3 times daily. Patient is confused, hallucinating verbalizes that he is in a [facility] currently, does have symptoms of mild delirium tremens, we increased the Librium dose to 50 mg 3 times daily, CIWA protocol was uptitrated and was started on gabapentin 600 mg p.o. 3 times daily. Patient has not had any fever since admission, significant electrolyte abnormalities noted today electrolytes were replaced-potassium magnesium and phosphorus. Will continue with Keppra 1000 mg twice daily was switched to IV, will continue to manage CIWA protocol, anticipated length of stay 2 more days, will continue with management. Case discussed with attending Dr. Lianne Hill MD PGY-2 Documentation for date of: 03/29/25 Subjective Subjective Interval history: EEG needed to be repeated. Yesterday (03/28) at 9pm: IV phenobarbital 130mg x1 Rapid event: Alert and confused, HR 190. CIWA 25. Given IV phenobartial 520mg and IV diazepam 20mg push. Added librium 25mg tid. Overnight he also got Seroquel 50mg po x1, Versed IV 4mg x3, Librium 25mg x1. The CIWA score on 03/29/2025 2pm was 27. Patient was hallucinating with agitation. Patient received Librium 50mg x1, Gabapentin 600mg x1, Diazepam 10mg IV x1, and Zipraxidone IM 10mg x1. His current alcohol withdrawl management changed to: Libirum 50mg po q8hr, IV Diazepam 20mg q5min prn, IV Diazepam 10mg q5hr prn, Gabapentin 600mg po tid CIWA protocol: Score 8-13: IV Diazepam 5 mg q2hr prn Score 14-19: IV Diazepam 7.5mg q2hr prn Score 20-25: IV Diazepam 12.5 mg q2hr prn Per neurology, EEG needs to be repeated as there were many artifacts. Plan to repeat EEG once patient is off of sedation. Exam Vital Signs Temp Pulse Resp BP Pulse Ox O2 Del Method 97.0 F 95 20 124/100 H 96 Room Air 03/29/25 04:00 03/29/25 07:12 03/29/25 07:12 03/29/25 04:00 03/29/25 04:00 03/28/25 19:49 Narrative Exam General: Well nourished, AAO x1, agitatied, hallucinating HENT: Normocephalic, atraumatic, hearing intact to conversation at normal volume, moist oral mucosa. swollen lip and healed laceration with a stitch over the right eyebrow Neck: Supple, non-tender, no JVD, no lymphadenopathy Lungs: Non-labored respirations, symmetric chest rise, Clear to auscultate bilaterally, No wheezing, rhonchi, crackles Heart: Peripheral pulses intact bilaterally, Regular Rate and Rhythm. Abdomen: Soft, non-tender, non-distended, no palpable masses Musculoskeletal: Normal range of motion and strength, No cyanosis or edema, No visible joint swelling Skin: Skin is warm, dry, no rashes or lesions. Neuro: Cranial nerves II-XII grossly intact. Strength 5/5 throughout. Objective Labs 03/29/25 04:40 03/29/25 04:40 Labs: Laboratory Results - last 24 hr 03/28/25 03/29/25 04:39 04:40 WBC 5.4 RBC 2.43 L Hgb 9.5 L Hct 26.9 L MCV 111 H MCH 39.1 H MCHC 35.3 RDW Std Deviation 54.7 H Plt Count 130 L D Neut % (Auto) 59 Lymph % (Auto) 25 [place] % (Auto) 11 Eos % (Auto) 5 Baso % (Auto) 1 Neut # (Auto) 3.2 Lymph # (Auto) 1.3 [place] # (Auto) 0.6 Eos # (Auto) 0.3 Baso # (Auto) 0.1 Immature Gran # (Auto) 0.02 H Absolute Nucleated RBC 0.00 Immature Gran % 0 Nucleated RBC % 0 Sodium 137 138 Potassium 3.2 L 3.2 L Chloride 99 101 Carbon Dioxide 25.8 27.8 Anion Gap 12 9 BUN < 5 L < 5 L Creatinine 0.6 0.6 Estim Creat Clear Calc 156.8 156.8 eGFR > 60 > 60 BUN/Creatinine Ratio 8 L 8 L Glucose 62 L D 76 Calculated Osmolality 269 L 271 L Calcium 8.6 8.8 Corrected Calcium 9.0 9.1 Phosphorus 1.8 L 1.6 L Magnesium 1.1 L 1.8 Iron 124 TIBC 223 L Iron Saturation 55 Unsat Iron Binding 99 L Ferritin 566 H Total Bilirubin 2.5 H D 1.9 H D AST 107 H 75 H ALT 31 30 Alkaline Phosphatase 109 D 117 H Total Protein 6.4 6.6 Albumin 3.5 3.6 Globulin 2.9 3.0 Albumin/Globulin Ratio 1.2 1.2 Triglycerides 88 Cholesterol 199 LDL Cholesterol, Calc 75 HDL Cholesterol 106 H Cholesterol/HDL Ratio 1.9 L TSH 2.89 Free T4 1.28 Quality Measures Quality Measures none Assessment & Plan Assessment Current Active Medications: Generic Name Dose Route Start Last Admin Trade Name Freq PRN Reason Stop Dose Admin Acetaminophen 650 mg 03/27/25 08:22 Acetaminophen 325 Mg Tablet PO 04/26/25 08:21 Q6H PRN Fever >100.4, Pain 1-3 Chlordiazepoxide HCl 25 mg 03/28/25 22:00 03/29/25 05:06 Chlordiazepoxide Hcl 25 Mg Capsule PO 04/02/25 21:59 25 mg Q8HR CK Administration Diazepam 20 mg 03/27/25 05:37 Diazepam Inj 5 Mg/Ml Vial 2 Ml IVP 04/01/25 05:36 Q5MIN PRN Seizures Diazepam 10 mg 03/29/25 01:52 Diazepam Inj 5 Mg/Ml Vial 2 Ml IVP 04/03/25 01:59 Q2HR PRN Breakthrough agitation Folic Acid 1 mg 03/27/25 09:45 03/28/25 20:33 Folic Acid 1 Mg Tablet PO 04/01/25 09:44 1 mg BID CK Administration Heparin Sodium (Porcine) 5,000 unit 03/27/25 09:00 03/28/25 20:28 Heparin Sod Inj 5000 Unit/Ml Vial SC 04/10/25 08:59 5,000 unit Q12HR CK Administration Levetiracetam 1,000 mg 03/27/25 21:00 03/28/25 20:29 Levetiracetam 250 Mg Tablet PO 04/26/25 20:59 1,000 mg BID CK Administration Lorazepam 0.5 mg 03/27/25 09:43 Lorazepam 0.5 Mg Tablet PO 04/01/25 09:42 Q4HR PRN CIWA Score 2-6 Midazolam HCl 2 mg 03/28/25 20:04 Midazolam Inj 1 Mg/Ml Vial 2 Ml IVP 04/02/25 21:59 Q2HR PRN CIWA 7-11 Midazolam HCl 4 mg 03/28/25 20:05 03/29/25 06:44 Midazolam Inj 1 Mg/Ml Vial 2 Ml IVP 04/02/25 20:09 4 mg Q2HR PRN Administration CIWA 12-20 Ondansetron HCl 4 mg 03/27/25 08:22 Ondansetron Inj 2 Mg/Ml Inj 2 Ml IVP 04/26/25 08:21 Q6H PRN NAUSEA OR VOMITING Protocol Thiamine HCl 100 mg 03/27/25 09:45 03/28/25 20:33 Thiamine 100 Mg Tablet PO 04/01/25 09:44 100 mg BID CK Administration Plan Davon Morocho 39y/o M, with PMH of seizure disorder and alcohol use, presented to the ED on 03/27/2025 for seizure activity after a fall. Patient was admitted for management of breakthrough seizures. #Alcohol dependence with withdrawal #Hx of Alcohol Use disorder #Alcohol related liver disease #Transaminitis -Patient denies consuming alcohol for months, but previously in ED, patient noted that he drank sips of alcohol -AST 237, ALT 35, ALP 142, platelet count low 130 -Ethyl Alcohol <3 -The CIWA score on 03/29/2025 2pm was 27. Patient was hallucinating with agitation. Patient received Librium 50mg x1, Gabapentin 600mg x1, Diazepam 10mg IV x1, and Zipraxidone IM 10mg x1. Plan: -Librium 50mg po q8hr, IV Diazepam 20mg q5min prn for seizure, IV Diazepam 10mg q4hr prn for breakthrough agitation, Gabapentin 600mg po tid -Folic acid 1mg po bid -Thiamine 100mg po bid -CIWA protocol: -Score 8-13: IV Diazepam 5 mg q2hr prn -Score 14-19: IV Diazepam 7.5mg q2hr prn -Score 20-25: IV Diazepam 12.5 mg q2hr prn - Seizure precautions #Seizure, tonic clonic #Episode of fall #History of Seizure disorder -Witnessed seizure with whole body shaking, Postictal confusion/headache/Fatigue, abrupt onset, Amnesia to the event. Lower lip trauma, However, no tongue bite. -Head CT (03/27/2025): Negative for acute hemorrhage, mass effect or midline shift -Elevated creatinine kinase total 452, and lactic acid 2.2 -Patient's breakthrough seizure likely due to poor compliance of anti-seizure medications and heavy alcohol use. Plan: -Resumed Home med Keppra 1000mg po bid -Consulted Neurology, , appreciate recommendations -Seizure precautions -Nurse Swallow Screen -Neuro Check q4hr -Strict I&Os -Repeat EEG in a.m. #Fever episode, resolved -Fever peaked 102.2 F -WBC: 8.3, Procalcitonin: 0.51 -UA: Clear yellow urine, 1+ urine protein, urine blood +1, urine WBC 2, urine squamous epithelium<1, urine bacteria rare. -CXR (03/27/2025): No pneumonia or pulmonary edema -US abd (03/27/2025): Hepatomegaly 17.3 cm fatty infiltration no focal liver lesions -Influenza Vaccine [id number] 0.5 ml IM x1 given -Blood Culture negative for 48hrs. Plan: -Acetaminophen 650mg po q6hr prn #Electrolyte abnormalities #Hypomagnesemia #Hypophosphatemia #Hypokalemia -Correct and replace electrolytes as needed Disposition: Med surg Diet: Regular Diet GI prophylaxis: Not indicated DVT prophylaxis: Heparin 5000units SC q12hr Code: FULL Assessment and plan discussed with my attending physician Dr. Garcia and Dr. Stapleton (PGY-2) Dr. Brown (PGY-1) - Internal medicine resident Attending Provider Attestation/Addendum Lianne Singh, , attest that I was physically present for the laureano portions of the service and evaluated the patient with the resident and I reviewed and discussed the case with the resident and agree with the resident's findings and plans of care as documented above Patient seen and eval this a.m. He is very confused. Sister and mother are at bedside. Patient is ANO x 1. He had a rapid response overnight due to tachycardia. Patient was very disoriented with a CIWA score of 25. Patient received IV phenobarbital of 130 mg x 1 followed by phenobarbital 512 mg IV, Valium and Librium. Will hold off on any further doses of phenobarbital due to benzodiazepines, and concern for toxicity of phenobarbital with use of benzos. Will continue with valium PRN with CIWA protocol. Sister at bedside states that the patient has been admitted on more than one occasion for alcohol withdrawal. He is from [place] and visiting family. Patient initially thought he was in a [facility] and states that he needs to go to the [employer].
--- NOTE | 2025-03-29 08:42 | PC.SS ---
Follow up note: On high CWAL Protocol. Pt will return home upon dc.
[2025-03-29] MEDS: DIAZEPAM INJ 5 MG/ML VIAL 2 ML IVP (08:48)
[2025-03-29] MEDS: NAPH,KPH MBDB 1 PACKET (1.5 GM) PO ×2 (08:49→13:50)
[2025-03-29] MEDS: HEPARIN SOD INJ 5000 UNIT/ML VIAL SC ×2 (08:50→21:43)
[2025-03-29] MEDS: FOLIC ACID 1 MG TABLET PO ×2 (08:50→21:43)
[2025-03-29] MEDS: THIAMINE 100 MG TABLET PO ×2 (08:53→21:44)
[2025-03-29] MEDS: POTASSIUM PHOS 22.5 MMOL in SODIUM CHLORIDE 0.9% 500 ML 500 ML 82.778 MMOL IV (09:27)
[2025-03-29] MEDS: GABAPENTIN 300 MG CAPSULE 600 MG PO ×3 (09:27→21:45)
[2025-03-29] MEDS: DIAZEPAM INJ 5 MG/ML VIAL 2 ML 10 MG IVP ×3 (10:12→14:09)
[2025-03-29] MEDS: Magnesium Sulfate 4 GM Ivpb 4 GM/50 ML BAG IV (13:50)
[2025-03-29] MEDS: ZIPRASIDONE INJ 20 MG/ML VIAL (NON-FORMULARY) 10 MG IM (14:44)
--- NOTE | 2025-03-29 16:43 | ESPR_ITS ---
Documentation for date of: 03/29/25 Subjective Subjective Interval history: Patient seen today at the bedside found awake, alert, orientedx3. Overnight required multiple medications due elevated CIWA and agitation. Currently with CIWA of 27 at the time of my evaluation currently restrained. Vitals and labs reviewed. Is speaking to someone not in the room on his right side but AAOx3. Will withhold EEG at this time. Exam Vital Signs Temp Pulse Resp BP Pulse Ox O2 Del Method 98.5 F 85 27 H 98/69 95 Room Air 03/29/25 12:00 03/29/25 16:00 03/29/25 12:00 03/29/25 12:00 03/29/25 12:00 03/29/25 12:00 Narrative Exam Physical Exam GENERAL: NAD, AAOx3 HEENT: Moist mucosa. Eyes open, symmetrical, & clear CARDIO: Heart RRR, no obvious murmurs PULM: No noted coughing/dyspnea CTA B/L, no R/W/R GI: Abdomen soft, nondistended, no pain on palpation. BSx4 SKIN/MSK/EXT: No wounds/rashes/edema/amputations, no pain on palpation. Pedal pulses present B/L NEURO: AAOx3, no focal neuro deficits, able to move all 4 extremities Objective Labs 04/02/25 05:03 04/02/25 05:03 Labs: Laboratory Results - last 24 hr 03/29/25 04:40 WBC 5.4 RBC 2.43 L Hgb 9.5 L Hct 26.9 L MCV 111 H MCH 39.1 H MCHC 35.3 RDW Std Deviation 54.7 H Plt Count 130 L D Neut % (Auto) 59 Lymph % (Auto) 25 [place] % (Auto) 11 Eos % (Auto) 5 Baso % (Auto) 1 Neut # (Auto) 3.2 Lymph # (Auto) 1.3 [place] # (Auto) 0.6 Eos # (Auto) 0.3 Baso # (Auto) 0.1 Immature Gran # (Auto) 0.02 H Absolute Nucleated RBC 0.00 Immature Gran % 0 Nucleated RBC % 0 Sodium 138 Potassium 3.2 L Chloride 101 Carbon Dioxide 27.8 Anion Gap 9 BUN < 5 L Creatinine 0.6 Estim Creat Clear Calc 156.8 eGFR > 60 BUN/Creatinine Ratio 8 L Glucose 76 Calculated Osmolality 271 L Calcium 8.8 Corrected Calcium 9.1 Phosphorus 1.6 L Magnesium 1.8 Total Bilirubin 1.9 H D AST 75 H ALT 30 Alkaline Phosphatase 117 H Total Protein 6.6 Albumin 3.6 Globulin 3.0 Albumin/Globulin Ratio 1.2 Quality Measures Quality Measures none Assessment & Plan Assessment Current Active Medications: Generic Name Dose Route Start Last Admin Trade Name Freq PRN Reason Stop Dose Admin Acetaminophen 650 mg 03/27/25 08:22 Acetaminophen 325 Mg Tablet PO 04/26/25 08:21 Q6H PRN Fever >100.4, Pain 1-3 Chlordiazepoxide HCl 50 mg 03/29/25 14:00 03/29/25 13:50 Chlordiazepoxide Hcl 25 Mg Capsule PO 04/03/25 13:59 50 mg Q8HR CK Administration Diazepam 20 mg 03/27/25 05:37 Diazepam Inj 5 Mg/Ml Vial 2 Ml IVP 04/01/25 05:36 Q5MIN PRN Seizures Diazepam 10 mg 03/29/25 10:26 03/29/25 14:09 Diazepam Inj 5 Mg/Ml Vial 2 Ml IVP 04/03/25 10:25 10 mg Q4HR PRN Administration Severe Agitation Diazepam 5 mg 03/29/25 14:34 Diazepam Inj 5 Mg/Ml Vial 2 Ml IVP 04/03/25 08:16 Q2HR PRN CIWA SCORE 8-13 Diazepam 7.5 mg 03/29/25 14:34 Diazepam Inj 5 Mg/Ml Vial 2 Ml IVP 04/03/25 08:16 Q2HR PRN CIWA SCORE 14-19 Diazepam 12.5 mg 03/29/25 14:34 Diazepam Inj 5 Mg/Ml Vial 2 Ml IVP 04/03/25 08:16 Q2HR PRN CIWA SCORE 20-25 Folic Acid 1 mg 03/27/25 09:45 03/29/25 08:50 Folic Acid 1 Mg Tablet PO 04/01/25 09:44 1 mg BID CK Administration Gabapentin 600 mg 03/29/25 09:30 03/29/25 13:50 Gabapentin 300 Mg Capsule PO 04/28/25 09:29 600 mg TID CK Administration Heparin Sodium (Porcine) 5,000 unit 03/27/25 09:00 03/29/25 08:50 Heparin Sod Inj 5000 Unit/Ml Vial SC 04/10/25 08:59 5,000 unit Q12HR CK Administration Magnesium Sulfate 4 gm in 50 mls @ 12.5 mls/hr 03/29/25 14:00 03/29/25 13:50 Magnesium Sulfate Ivpb IV 03/29/25 17:59 12.5 mls/hr X1 ONE Administration Levetiracetam 1,000 mg 03/29/25 21:00 Levetiracetam Inj 100 Mg/Ml Vial 5ml IVP 04/28/25 20:59 Q12HR CK Ondansetron HCl 4 mg 03/27/25 08:22 Ondansetron Inj 2 Mg/Ml Inj 2 Ml IVP 04/26/25 08:21 Q6H PRN NAUSEA OR VOMITING Protocol Thiamine HCl 100 mg 03/27/25 09:45 03/29/25 08:53 Thiamine 100 Mg Tablet PO 04/01/25 09:44 100 mg BID CK Administration Plan Mr. Blanchard is a 39-year-old male admitted for breakthrough seizure in the setting of poor compliance and heavy alcohol use. #Breakthrough seizures #Ground-level fall Likely in the setting of #History of seizure disorder #Poor antiepileptic compliance #Alcohol use disorder #Fever of unknown origin Possibly secondary to poor medication compliance - Continue CIWA, recommend to continue scheduled Ativan as well as PRN - Continue Keppra as taken at home - Repeat EEG as previous one was suboptimal Case discussed with my attending Dr. Rashida Bell MD PGY-2 Attending Provider Attestation/Addendum I personally have seen and the patient at the bedside and agree resident's findings, assessment and plan of care. Patient's seizures are most likely related to alcohol withdrawal. Continue with current management. Follow-up with repeat EEG.
[2025-03-29] MEDS: levETIRAcetam INJ 100 MG/ML VIAL 5ML 1000 MG IVP (21:44)
[2025-03-30] VITALS (8 sets, daily range): BP systolic 95–118; BP diastolic 65–80; PULSE 75–116; RESP 13–100; TEMP 36.1–36.4; O2SAT 98–100
[2025-03-30 05:36] LABS: Basophils # (Auto) 0.0 Thou/mm3 (0.0-0.2); Basophils % (Auto) 1 % (0-2.5); Eosinophils # (Auto) 0.3 Thou/mm3 (0.0-0.5); Eosinophils % (Auto) 5 % (0-10); Hematocrit 25.7 % (41.0-53.0); Hemoglobin 9.0 g/dL (13.5-16.0); Immature Granulocytes Auto 0.01 Thou/mm3 (0.00-0.00); Lymphocytes # (Auto) 0.9 Thou/mm3 (1.0-4.8); Lymphocytes % (Auto) 16 % (10-50); Mean Corpuscular HGB Conc 35.0 g/dl (31.0-37.0); Mean Corpuscular Hemoglobin 38.8 pg (25.0-35.0); Mean Corpuscular Volume 111 fL (80-100); Monocytes # (Auto) 0.7 Thou/mm3 (0.0-0.8); Monocytes % (Auto) 13 % (0-12); Neutrophils # (Auto) 3.3 Thou/mm3 (1.8-7.7); Neutrophils % (Auto) 64 % (37-80); Nucleated Red Blood Cell # 0.00 Thou/mm3 (0.00-0.00); Nucleated Red Blood Cell % 0 /100 WBC (0); Platelet Count 133 Thou/mm3 (140-440); RDW Standard Deviation 55.7 fL (35.1-43.9); Red Blood Count 2.32 Miln/mm3 (4.50-5.90); White Blood Count 5.2 Thou/mm3 (3.8-10.6)
[2025-03-30] MEDS: GABAPENTIN 300 MG CAPSULE 600 MG PO ×3 (05:41→21:39)
[2025-03-30] MEDS: DIAZEPAM INJ 5 MG/ML VIAL 2 ML IVP ×3 (05:51→16:03)
[2025-03-30 06:24] LABS: Alanine Aminotransferase 32 U/L (10-49); Albumin, Serum 3.5 gm/dL (3.5-5.0); Albumin/Globulin Ratio 1.3 (1.2-2.2); Alkaline Phosphatase 109 U/L (46-116); Anion Gap 10 (7-16); Aspartate Amino Transferase 92 U/L (0-34); BUN/Creatinine Ratio 8 Ratio (12-20); Bilirubin,Total 1.2 mg/dL (0.3-1.2); Blood Urea Nitrogen < 5 mg/dL (9-23); Calcium 8.3 mg/dL (8.3-10.6); Calcium (Corrected) 8.7 mg/dL (8.5-10.1); Carbon Dioxide 24.9 mMol/L (20.0-31.0); Chloride 106 mMol/L (98-107); Creatinine (Component) 0.6 mg/dL (0.6-1.3); Estimated Creatinine Clearance 156.8 mL/min (>60); Globulin 2.7 gm/dL (2.3-3.5); Glucose 96 mg/dL (74-106); Magnesium 1.8 mg/dL (1.6-2.6); Osmolality,Calculated 278 (275-295); Phosphorous 3.8 mg/dL (2.4-5.1); Potassium 3.5 mMol/L (3.4-5.1); Sodium 141 mMol/L (136-145); Total Protein 6.2 gm/dL (5.7-8.2); eGFR > 60 See Note
[2025-03-30] MEDS: Magnesium Sulfate 2 GM Ivpb 2 GM/50 ML BAG IV (07:52)
[2025-03-30] MEDS: levETIRAcetam INJ 100 MG/ML VIAL 5ML 1000 MG IVP ×2 (10:09→21:39)
[2025-03-30] MEDS: FOLIC ACID 1 MG TABLET PO ×2 (10:10→21:39)
[2025-03-30] MEDS: HEPARIN SOD INJ 5000 UNIT/ML VIAL SC ×2 (10:10→21:39)
[2025-03-30] MEDS: THIAMINE 100 MG TABLET PO ×2 (10:11→21:39)
--- NOTE | 2025-03-30 16:16 | ESPR_ITS ---
<Statement entered by Evelia Stapleton MD - 03/30/25 18:06> Patient was seen and examined at bedside. I agree on the assessment and plan on this note as documented by resident Dr Jacque Brown DO PGY1. 39-year-old male with past medical history as below admitted for alcohol withdrawal management, continues to have significant symptoms hallucinating today as well reports that he is at home. We will continue with current regimen IV CIWA protocol oral Librium and gabapentin. Will consider repeating EEG in a.m. once withdrawal symptoms have improved, withdrawal symptoms relatively improved from yesterday. Case discussed with attending Dr. Lianne Hill MD PGY-2 Documentation for date of: 03/30/25 Subjective Subjective Interval history: Patient was still agitated and experiencing hallucination. Currently CIWA score is ranging from 11-12. Will continue on current alcohol withdrawal management. Will try to taper down on patient's medication tomorrow. Labs reviewed and patient examined at the bedside. Denies chest pain, palpation, SOB, abdominal pain, N/V, fevers or chills. Exam Vital Signs Temp Pulse Resp BP Pulse Ox O2 Del Method 97.1 F 87 20 106/70 98 Room Air 03/30/25 12:00 03/30/25 12:48 03/30/25 12:48 03/30/25 12:00 03/30/25 12:00 03/30/25 12:00 Narrative Exam General: Well nourished, AAO x1, agitatied, hallucinating HENT: Normocephalic, atraumatic, hearing intact to conversation at normal volume, moist oral mucosa. swollen lip and healed laceration with a stitch over the right eyebrow Neck: Supple, non-tender, no JVD, no lymphadenopathy Lungs: Non-labored respirations, symmetric chest rise, Clear to auscultate bilaterally, No wheezing, rhonchi, crackles Heart: Peripheral pulses intact bilaterally, Regular Rate and Rhythm. Abdomen: Soft, non-tender, non-distended, no palpable masses Musculoskeletal: Normal range of motion and strength, No cyanosis or edema, No visible joint swelling Skin: Skin is warm, dry, no rashes or lesions. Neuro: Cranial nerves II-XII grossly intact. Strength 5/5 throughout. Objective Labs 03/31/25 05:03 03/31/25 05:03 Labs: Laboratory Results - last 24 hr 03/30/25 04:34 WBC 5.2 RBC 2.32 L Hgb 9.0 L Hct 25.7 L MCV 111 H MCH 38.8 H MCHC 35.0 RDW Std Deviation 55.7 H Plt Count 133 L Neut % (Auto) 64 Lymph % (Auto) 16 [place] % (Auto) 13 H Eos % (Auto) 5 Baso % (Auto) 1 Neut # (Auto) 3.3 Lymph # (Auto) 0.9 L [place] # (Auto) 0.7 Eos # (Auto) 0.3 Baso # (Auto) 0.0 Immature Gran # (Auto) 0.01 H Absolute Nucleated RBC 0.00 Immature Gran % 0 Nucleated RBC % 0 Sodium 141 Potassium 3.5 Chloride 106 Carbon Dioxide 24.9 Anion Gap 10 BUN < 5 L Creatinine 0.6 Estim Creat Clear Calc 156.8 eGFR > 60 BUN/Creatinine Ratio 8 L Glucose 96 Calculated Osmolality 278 Calcium 8.3 Corrected Calcium 8.7 Phosphorus 3.8 Magnesium 1.8 Total Bilirubin 1.2 D AST 92 H ALT 32 Alkaline Phosphatase 109 Total Protein 6.2 Albumin 3.5 Globulin 2.7 Albumin/Globulin Ratio 1.3 Quality Measures Quality Measures none Assessment & Plan Assessment Current Active Medications: Generic Name Dose Route Start Last Admin Trade Name Freq PRN Reason Stop Dose Admin Acetaminophen 650 mg 03/27/25 08:22 Acetaminophen 325 Mg Tablet PO 04/26/25 08:21 Q6H PRN Fever >100.4, Pain 1-3 Artificial Tears 0 drop 03/30/25 13:41 Artificial Tears 225 Drop/15 Ml Btl BOTH EYES 04/29/25 13:40 PRN PRN TO KEEP EYES MOIST Chlordiazepoxide HCl 50 mg 03/29/25 14:00 03/30/25 13:44 Chlordiazepoxide Hcl 25 Mg Capsule PO 04/03/25 13:59 50 mg Q8HR CK Administration Diazepam 20 mg 03/27/25 05:37 Diazepam Inj 5 Mg/Ml Vial 2 Ml IVP 04/01/25 05:36 Q5MIN PRN Seizures Diazepam 10 mg 03/29/25 10:26 03/29/25 14:09 Diazepam Inj 5 Mg/Ml Vial 2 Ml IVP 04/03/25 10:25 10 mg Q4HR PRN Administration Severe Agitation Diazepam 5 mg 03/29/25 14:34 03/30/25 16:03 Diazepam Inj 5 Mg/Ml Vial 2 Ml IVP 04/03/25 08:16 5 mg Q2HR PRN Administration CIWA SCORE 8-13 Diazepam 7.5 mg 03/29/25 14:34 Diazepam Inj 5 Mg/Ml Vial 2 Ml IVP 04/03/25 08:16 Q2HR PRN CIWA SCORE 14-19 Diazepam 12.5 mg 03/29/25 14:34 Diazepam Inj 5 Mg/Ml Vial 2 Ml IVP 04/03/25 08:16 Q2HR PRN CIWA SCORE 20-25 Folic Acid 1 mg 03/27/25 09:45 03/30/25 10:10 Folic Acid 1 Mg Tablet PO 04/01/25 09:44 1 mg BID CK Administration Gabapentin 600 mg 03/29/25 09:30 03/30/25 13:45 Gabapentin 300 Mg Capsule PO 04/28/25 09:29 600 mg TID CK Administration Heparin Sodium (Porcine) 5,000 unit 03/27/25 09:00 03/30/25 10:10 Heparin Sod Inj 5000 Unit/Ml Vial SC 04/10/25 08:59 5,000 unit Q12HR CK Administration Levetiracetam 1,000 mg 03/29/25 21:00 03/30/25 10:09 Levetiracetam Inj 100 Mg/Ml Vial 5ml IVP 04/28/25 20:59 1,000 mg Q12HR CK Administration Ondansetron HCl 4 mg 03/27/25 08:22 Ondansetron Inj 2 Mg/Ml Inj 2 Ml IVP 04/26/25 08:21 Q6H PRN NAUSEA OR VOMITING Protocol Thiamine HCl 100 mg 03/27/25 09:45 03/30/25 10:11 Thiamine 100 Mg Tablet PO 04/01/25 09:44 100 mg BID CK Administration Plan Ms Blanchard Davon 39y/o M, with PMH of seizure disorder and alcohol use, presented to the ED on 03/27/2025 for seizure activity after a fall. Patient was admitted for management of breakthrough seizures. #Alcohol dependence with withdrawal #Hx of Alcohol Use disorder #Alcohol related liver disease #Transaminitis -Patient denies consuming alcohol for months, but previously in ED, patient noted that he drank sips of alcohol -AST 237, ALT 35, ALP 142, platelet count low 130 -Ethyl Alcohol <3 -The CIWA score on 03/29/2025 2pm was 27. Patient was hallucinating with agitation. Patient received Librium 50mg x1, Gabapentin 600mg x1, Diazepam 10mg IV x1, and Zipraxidone IM 10mg x1. Plan: -Librium 50mg po q8hr, IV Diazepam 20mg q5min prn for seizure, IV Diazepam 10mg q4hr prn for breakthrough agitation, Gabapentin 600mg po tid -Folic acid 1mg po bid -Thiamine 100mg po bid -[facility] protocol: -Score 8-13: IV Diazepam 5 mg q2hr prn -Score 14-19: IV Diazepam 7.5mg q2hr prn -Score 20-25: IV Diazepam 12.5 mg q2hr prn - Seizure precautions #Seizure, tonic clonic #Episode of fall #History of Seizure disorder -Witnessed seizure with whole body shaking, Postictal confusion/headache/Fatigue, abrupt onset, Amnesia to the event. Lower lip trauma, However, no tongue bite. -Head CT (03/27/2025): Negative for acute hemorrhage, mass effect or midline shift -Elevated creatinine kinase total 452, and lactic acid 2.2 -Patient's breakthrough seizure likely due to poor compliance of anti-seizure medications and heavy alcohol use. Plan: -Resumed Home med Keppra 1000mg po bid -Consulted Neurology, , appreciate recommendations -Seizure precautions -Nurse Swallow Screen -Neuro Check q4hr -Strict I&Os -Repeat EEG #Fever episode, resolved -Fever peaked 102.2 F -WBC: 8.3, Procalcitonin: 0.51 -UA: Clear yellow urine, 1+ urine protein, urine blood +1, urine WBC 2, urine squamous epithelium<1, urine bacteria rare. -CXR (03/27/2025): No pneumonia or pulmonary edema -US abd (03/27/2025): Hepatomegaly 17.3 cm fatty infiltration no focal liver lesions -Influenza Vaccine [id number] 0.5 ml IM x1 given -Blood Culture negative for 48hrs. Plan: -Acetaminophen 650mg po q6hr prn #Electrolyte abnormalities #Hypomagnesemia #Hypophosphatemia #Hypokalemia -Correct and replace electrolytes as needed Disposition: Med surg Diet: Regular Diet GI prophylaxis: Not indicated DVT prophylaxis: Heparin 5000units SC q12hr Code: FULL Assessment and plan discussed with my attending physician Dr. Garcia and Dr. Stapleton (PGY-2) Dr. Brown (PGY-1) - Internal medicine resident Attending Provider Attestation/Addendum Lianne Singh, , attest that I was physically present for the laureano portions of the service and evaluated the patient with the resident and I reviewed and discussed the case with the resident and agree with the resident's findings and plans of care as documented above Rut seen and evaluated this AM. He remains A&Ox2. Per sister at bedside, patient continued to hallucinate and have conversations with people he was hallucinating. Patient has minimal tremors and denies headache. He has been tolerating diet without issue. Patient was well rested overnight. CIWA currently 11. Will taper librium dose. Continue with current management. Patient has been seizure free. Pending EEG in AM.
[2025-03-31] VITALS: BP 103/70; PULSE 81; PULSE 86; RESP 22; TEMP 36.4; O2SAT 100
[2025-03-31 04:00] VITALS: BP 92/64; PULSE 68; PULSE 81; RESP 22; TEMP 36.3; O2SAT 95
[2025-03-31] MEDS: GABAPENTIN 300 MG CAPSULE 600 MG PO (05:13)
[2025-03-31 06:15] LABS: Basophils # (Auto) 0.0 Thou/mm3 (0.0-0.2); Basophils % (Auto) 1 % (0-2.5); Eosinophils # (Auto) 0.3 Thou/mm3 (0.0-0.5); Eosinophils % (Auto) 5 % (0-10); Hematocrit 26.4 % (41.0-53.0); Hemoglobin 9.0 g/dL (13.5-16.0); Immature Granulocytes Auto 0.02 Thou/mm3 (0.00-0.00); Lymphocytes # (Auto) 1.4 Thou/mm3 (1.0-4.8); Lymphocytes % (Auto) 26 % (10-50); Mean Corpuscular HGB Conc 34.1 g/dl (31.0-37.0); Mean Corpuscular Hemoglobin 38.5 pg (25.0-35.0); Mean Corpuscular Volume 113 fL (80-100); Monocytes # (Auto) 0.9 Thou/mm3 (0.0-0.8); Monocytes % (Auto) 16 % (0-12); Neutrophils # (Auto) 2.9 Thou/mm3 (1.8-7.7); Neutrophils % (Auto) 53 % (37-80); Nucleated Red Blood Cell # 0.00 Thou/mm3 (0.00-0.00); Nucleated Red Blood Cell % 0 /100 WBC (0); Platelet Count 147 Thou/mm3 (140-440); RDW Standard Deviation 58.4 fL (35.1-43.9); Red Blood Count 2.34 Miln/mm3 (4.50-5.90); White Blood Count 5.5 Thou/mm3 (3.8-10.6)
[2025-03-31 06:42] LABS: Alanine Aminotransferase 32 U/L (10-49); Albumin, Serum 3.7 gm/dL (3.5-5.0); Albumin/Globulin Ratio 1.2 (1.2-2.2); Alkaline Phosphatase 125 U/L (46-116); Anion Gap 7 (7-16); Aspartate Amino Transferase 75 U/L (0-34); BUN/Creatinine Ratio 9 Ratio (12-20); Bilirubin,Total 0.7 mg/dL (0.3-1.2); Blood Urea Nitrogen 6 mg/dL (9-23); Calcium 8.8 mg/dL (8.3-10.6); Calcium (Corrected) 9.0 mg/dL (8.5-10.1); Carbon Dioxide 28.0 mMol/L (20.0-31.0); Chloride 104 mMol/L (98-107); Creatinine (Component) 0.7 mg/dL (0.6-1.3); Estimated Creatinine Clearance 134.4 mL/min (>60); Globulin 3.0 gm/dL (2.3-3.5); Glucose 93 mg/dL (74-106); Magnesium 1.8 mg/dL (1.6-2.6); Osmolality,Calculated 275 (275-295); Phosphorous 3.6 mg/dL (2.4-5.1); Potassium 4.7 mMol/L (3.4-5.1); Sodium 139 mMol/L (136-145); Total Protein 6.7 gm/dL (5.7-8.2); eGFR > 60 See Note
[2025-03-31 08:00] VITALS: BP 108/68; PULSE 79; PULSE 94; RESP 19; TEMP 36.3; O2SAT 98
--- NOTE | 2025-03-31 09:12 | PC.NURSE ---
per dr. cage, remove pt from restraints and see how he does.
[2025-03-31] MEDS: levETIRAcetam INJ 100 MG/ML VIAL 5ML 1000 MG IVP ×2 (09:21→21:55)
[2025-03-31] MEDS: Magnesium Sulfate 2 GM Ivpb 2 GM/50 ML BAG IV (09:21)
[2025-03-31] MEDS: FOLIC ACID 1 MG TABLET PO ×2 (09:22→21:55)
[2025-03-31] MEDS: HEPARIN SOD INJ 5000 UNIT/ML VIAL SC ×2 (09:22→21:55)
[2025-03-31] MEDS: THIAMINE 100 MG TABLET PO ×2 (09:22→21:56)
--- NOTE | 2025-03-31 11:20 | ESPR_ITS ---
<Statement entered by Evelia Stapleton MD - 04/01/25 05:19> Patient was seen and examined at bedside. I agree on the assessment and plan on this note as documented by resident Dr Jacque Brown DO PGY1. 39-year-old male with past medical history as below, admitted for breakthrough seizures started having alcohol withdrawal symptoms during hospitalization, symptoms have improved we will decrease gabapentin to 300 p.o. 3 times daily, CIWA protocol was decreased by 2.5 mg for each dosage respectively. Continue Keppra for seizures, will repeat EEG in AM. Consider down titrating Librium in AM. Anticipate discharge in the next 48 hours once alcohol withdrawal symptoms have improved. Case discussed with attending Dr. Tristan Stapleton MD PGY-2 Documentation for date of: 03/31/25 Subjective Subjective Interval history: CIWA score stable at 4 this morning. Took off of restraints. Decreased Gabapentin dosage to Gabapentin 300mg po tid (From 600mg) and CIWA protocol diazepam dosage decreased by 2.5mg each. Will monitor for next 2 days for any changes. Patient's sister want patient to be discharged to SNF. Repeat EEG pending. No Overnight events. Labs reviewed and patient examined at the bedside. Denies chest pain, palpation, SOB, abdominal pain, N/V, fevers or chills. Exam Vital Signs Temp Pulse Resp BP Pulse Ox O2 Del Method O2 Flow Rate 97.3 F 79 19 108/68 98 Room Air 1 03/31/25 08:00 03/31/25 08:00 03/31/25 08:00 03/31/25 08:00 03/31/25 08:00 03/31/25 08:00 03/31/25 04:00 Narrative Exam General: Well nourished, AAO x2, Slight agitation, hallucinating HENT: Normocephalic, atraumatic, hearing intact to conversation at normal volume, moist oral mucosa. swollen lip and healed laceration with a stitch over the right eyebrow Neck: Supple, non-tender, no JVD, no lymphadenopathy Lungs: Non-labored respirations, symmetric chest rise, Clear to auscultate bilaterally, No wheezing, rhonchi, crackles Heart: Peripheral pulses intact bilaterally, Regular Rate and Rhythm. Abdomen: Soft, non-tender, non-distended, no palpable masses Musculoskeletal: Normal range of motion and strength, No cyanosis or edema, No visible joint swelling Skin: Skin is warm, dry, no rashes or lesions. Neuro: Cranial nerves II-XII grossly intact. Strength 5/5 throughout. Objective Labs 03/31/25 05:03 03/31/25 05:03 Labs: Laboratory Results - last 24 hr 03/31/25 05:03 WBC 5.5 RBC 2.34 L Hgb 9.0 L Hct 26.4 L MCV 113 H MCH 38.5 H MCHC 34.1 RDW Std Deviation 58.4 H Plt Count 147 Neut % (Auto) 53 Lymph % (Auto) 26 [place] % (Auto) 16 H Eos % (Auto) 5 Baso % (Auto) 1 Neut # (Auto) 2.9 Lymph # (Auto) 1.4 [place] # (Auto) 0.9 H Eos # (Auto) 0.3 Baso # (Auto) 0.0 Immature Gran # (Auto) 0.02 H Absolute Nucleated RBC 0.00 Immature Gran % 0 Nucleated RBC % 0 Sodium 139 Potassium 4.7 D Chloride 104 Carbon Dioxide 28.0 Anion Gap 7 BUN 6 L Creatinine 0.7 Estim Creat Clear Calc 134.4 eGFR > 60 BUN/Creatinine Ratio 9 L Glucose 93 Calculated Osmolality 275 Calcium 8.8 Corrected Calcium 9.0 Phosphorus 3.6 Magnesium 1.8 Total Bilirubin 0.7 D AST 75 H ALT 32 Alkaline Phosphatase 125 H Total Protein 6.7 Albumin 3.7 Globulin 3.0 Albumin/Globulin Ratio 1.2 Quality Measures Quality Measures none Assessment & Plan Assessment Current Active Medications: Generic Name Dose Route Start Last Admin Trade Name Keila PRN Reason Stop Dose Admin Acetaminophen 650 mg 03/27/25 08:22 Acetaminophen 325 Mg Tablet PO 04/26/25 08:21 Q6H PRN Fever >100.4, Pain 1-3 Artificial Tears 0 drop 03/30/25 13:41 Artificial Tears 225 Drop/15 Ml Btl BOTH EYES 04/29/25 13:40 PRN PRN TO KEEP EYES MOIST Chlordiazepoxide HCl 50 mg 03/29/25 14:00 03/31/25 05:13 Chlordiazepoxide Hcl 25 Mg Capsule PO 04/03/25 13:59 50 mg Q8HR CK Administration Diazepam 20 mg 03/27/25 05:37 Diazepam Inj 5 Mg/Ml Vial 2 Ml IVP 04/01/25 05:36 Q5MIN PRN Seizures Diazepam 10 mg 03/29/25 10:26 03/29/25 14:09 Diazepam Inj 5 Mg/Ml Vial 2 Ml IVP 04/03/25 10:25 10 mg Q4HR PRN Administration Severe Agitation Diazepam 5 mg 03/29/25 14:34 03/30/25 16:03 Diazepam Inj 5 Mg/Ml Vial 2 Ml IVP 04/03/25 08:16 5 mg Q2HR PRN Administration CIWA SCORE 8-13 Diazepam 7.5 mg 03/29/25 14:34 Diazepam Inj 5 Mg/Ml Vial 2 Ml IVP 04/03/25 08:16 Q2HR PRN CIWA SCORE 14-19 Diazepam 12.5 mg 03/29/25 14:34 Diazepam Inj 5 Mg/Ml Vial 2 Ml IVP 04/03/25 08:16 Q2HR PRN CIWA SCORE 20-25 Folic Acid 1 mg 03/27/25 09:45 03/31/25 09:22 Folic Acid 1 Mg Tablet PO 04/01/25 09:44 1 mg BID CK Administration Gabapentin 600 mg 03/29/25 09:30 03/31/25 05:13 Gabapentin 300 Mg Capsule PO 04/28/25 09:29 600 mg TID CK Administration Heparin Sodium (Porcine) 5,000 unit 03/27/25 09:00 03/31/25 09:22 Heparin Sod Inj 5000 Unit/Ml Vial SC 04/10/25 08:59 5,000 unit Q12HR CK Administration Levetiracetam 1,000 mg 03/29/25 21:00 03/31/25 09:21 Levetiracetam Inj 100 Mg/Ml Vial 5ml IVP 04/28/25 20:59 1,000 mg Q12HR CK Administration Ondansetron HCl 4 mg 03/27/25 08:22 Ondansetron Inj 2 Mg/Ml Inj 2 Ml IVP 04/26/25 08:21 Q6H PRN NAUSEA OR VOMITING Protocol Thiamine HCl 100 mg 03/27/25 09:45 03/31/25 09:22 Thiamine 100 Mg Tablet PO 04/01/25 09:44 100 mg BID CK Administration Plan Ms BlanchardDavon 39y/o M, with PMH of seizure disorder and alcohol use, presented to the ED on 03/27/2025 for seizure activity after a fall. Patient was admitted for management of breakthrough seizures. #Alcohol dependence with withdrawal #Hx of Alcohol Use disorder #Alcohol related liver disease #Transaminitis -Patient denies consuming alcohol for months, but previously in ED, patient noted that he drank sips of alcohol -AST 237, ALT 35, ALP 142, platelet count low 130 -Ethyl Alcohol <3 -The CIWA score on 03/29/2025 2pm was 27. Patient was hallucinating with agitation. Patient received Librium 50mg x1, Gabapentin 600mg x1, Diazepam 10mg IV x1, and Zipraxidone IM 10mg x1. Plan: -Librium 50mg po q8hr, IV Diazepam 20mg q5min prn for seizure, IV Diazepam 10mg q4hr prn for breakthrough agitation -Gabapentin 300mg po tid -Folic acid 1mg po bid -Thiamine 100mg po bid -CIWA protocol: Score 8-13: Diazepam 2.5 mg IV q2hr prn Score 14-19: Diazepam 5mg IV q2hr prn Score 20-25: Diazepam 10mg IV q2hr prn - Seizure precautions #Seizure, tonic clonic #Episode of fall #History of Seizure disorder -Witnessed seizure with whole body shaking, Postictal confusion/headache/Fatigue, abrupt onset, Amnesia to the event. Lower lip trauma, However, no tongue bite. -Head CT (03/27/2025): Negative for acute hemorrhage, mass effect or midline shift -Elevated creatinine kinase total 452, and lactic acid 2.2 -Patient's breakthrough seizure likely due to poor compliance of anti-seizure medications and heavy alcohol use. Plan: -Resumed Home med Keppra 1000mg po bid -Consulted Neurology, , appreciate recommendations -Seizure precautions -Nurse Swallow Screen -Neuro Check q4hr -Strict I&Os -Repeat EEG #Fever episode, resolved -Fever peaked 102.2 F -WBC: 8.3, Procalcitonin: 0.51 -UA: Clear yellow urine, 1+ urine protein, urine blood +1, urine WBC 2, urine squamous epithelium<1, urine bacteria rare. -CXR (03/27/2025): No pneumonia or pulmonary edema -US abd (03/27/2025): Hepatomegaly 17.3 cm fatty infiltration no focal liver lesions -Influenza Vaccine [id number] 0.5 ml IM x1 given -Blood Culture negative for 48hrs. Plan: -Acetaminophen 650mg po q6hr prn #Electrolyte abnormalities #Hypomagnesemia #Hypophosphatemia #Hypokalemia -Correct and replace electrolytes as needed Disposition: Med surg Diet: Regular Diet GI prophylaxis: Not indicated DVT prophylaxis: Heparin 5000units SC q12hr Code: FULL Assessment and plan discussed with my attending physician Dr. Hudson and Dr. Stapleton (PGY-2) Dr. Brown (PGY-1) - Internal medicine resident Attending Provider Attestation/Addendum Patient's sister at bedside. The patient was supposed to be taking antiseizure medication. He was admitted for seizure, alcohol withdrawal. He does not drive. He is not working currently. Continue treatment for alcohol withdrawal. Adjust medications. Discussed with housestaff. Seizure precautions.
[2025-03-31 12:00] VITALS: BP 106/75; PULSE 83; PULSE 87; RESP 18; TEMP 36.2; O2SAT 100
[2025-03-31] MEDS: GABAPENTIN 300 MG CAPSULE PO ×2 (14:28→21:56)
[2025-03-31 16:00] VITALS: BP 107/67; PULSE 65; PULSE 74; RESP 17; TEMP 36.1; O2SAT 100
--- NOTE | 2025-03-31 16:06 | PC.SS ---
Follow up note: CWAL decreasing. EEG pending. Pt will return home upon dc.
[2025-03-31 20:00] VITALS: BP 104/72; PULSE 80; PULSE 83; RESP 12; TEMP 36.2; O2SAT 97
[2025-04-01] VITALS: BP 94/60; PULSE 73; PULSE 74; RESP 12; TEMP 36.1; O2SAT 96
[2025-04-01 04:00] VITALS: BP 106/55; PULSE 71; PULSE 73; RESP 14; TEMP 36.1; O2SAT 96
[2025-04-01] MEDS: GABAPENTIN 300 MG CAPSULE PO (05:12)
[2025-04-01 06:36] LABS: Basophils # (Auto) 0.0 Thou/mm3 (0.0-0.2); Basophils % (Auto) 1 % (0-2.5); Eosinophils # (Auto) 0.3 Thou/mm3 (0.0-0.5); Eosinophils % (Auto) 5 % (0-10); Hematocrit 26.6 % (41.0-53.0); Hemoglobin 9.1 g/dL (13.5-16.0); Immature Granulocytes Auto 0.06 Thou/mm3 (0.00-0.00); Lymphocytes # (Auto) 1.4 Thou/mm3 (1.0-4.8); Lymphocytes % (Auto) 26 % (10-50); Mean Corpuscular HGB Conc 34.2 g/dl (31.0-37.0); Mean Corpuscular Hemoglobin 38.9 pg (25.0-35.0); Mean Corpuscular Volume 114 fL (80-100); Monocytes # (Auto) 1.0 Thou/mm3 (0.0-0.8); Monocytes % (Auto) 18 % (0-12); Neutrophils # (Auto) 2.8 Thou/mm3 (1.8-7.7); Neutrophils % (Auto) 50 % (37-80); Nucleated Red Blood Cell # 0.00 Thou/mm3 (0.00-0.00); Nucleated Red Blood Cell % 0 /100 WBC (0); Platelet Count 163 Thou/mm3 (140-440); RDW Standard Deviation 56.4 fL (35.1-43.9); Red Blood Count 2.34 Miln/mm3 (4.50-5.90); White Blood Count 5.6 Thou/mm3 (3.8-10.6)
[2025-04-01 06:42] LABS: Alanine Aminotransferase 31 U/L (10-49); Albumin, Serum 3.6 gm/dL (3.5-5.0); Albumin/Globulin Ratio 1.3 (1.2-2.2); Alkaline Phosphatase 125 U/L (46-116); Anion Gap 9 (7-16); Aspartate Amino Transferase 63 U/L (0-34); BUN/Creatinine Ratio 10 Ratio (12-20); Bilirubin,Total 0.4 mg/dL (0.3-1.2); Blood Urea Nitrogen 7 mg/dL (9-23); Calcium 9.3 mg/dL (8.3-10.6); Calcium (Corrected) 9.6 mg/dL (8.5-10.1); Carbon Dioxide 26.5 mMol/L (20.0-31.0); Chloride 101 mMol/L (98-107); Creatinine (Component) 0.7 mg/dL (0.6-1.3); Estimated Creatinine Clearance 134.4 mL/min (>60); Globulin 2.7 gm/dL (2.3-3.5); Glucose 87 mg/dL (74-106); Magnesium 1.5 mg/dL (1.6-2.6); Osmolality,Calculated 268 (275-295); Phosphorous 4.6 mg/dL (2.4-5.1); Potassium 4.6 mMol/L (3.4-5.1); Sodium 136 mMol/L (136-145); Total Protein 6.3 gm/dL (5.7-8.2); eGFR > 60 See Note
[2025-04-01 08:00] VITALS: BP 113/74; PULSE 73; PULSE 80; RESP 16; TEMP 36.2; O2SAT 96
[2025-04-01] MEDS: THIAMINE 100 MG TABLET PO (08:05)
[2025-04-01] MEDS: FOLIC ACID 1 MG TABLET PO (08:05)
[2025-04-01] MEDS: HEPARIN SOD INJ 5000 UNIT/ML VIAL SC ×2 (08:05→22:02)
[2025-04-01] MEDS: levETIRAcetam INJ 100 MG/ML VIAL 5ML 1000 MG IVP (08:27)
[2025-04-01 12:00] VITALS: BP 118/76; PULSE 64; PULSE 67; RESP 16; TEMP 36.3; O2SAT 95
[2025-04-01] MEDS: GABAPENTIN 100 MG CAPSULE PO ×2 (13:34→22:03)
--- NOTE | 2025-04-01 14:43 | ESPR_ITS ---
Documentation for date of: 04/01/25 Subjective Subjective Interval history: Patient seen and examined at bedside, is alert oriented x 4, hallucinations have resolved. Patient answers all questions adequately, tremors have improved as well CIWA scores have improved. Will change Librium to twice daily, will change CIWA protocol to oral Ativan, gabapentin down titrated to 100 mg 3 times daily. Patient is walking however unsteady to bathroom. Repeat EEG ordered, pending final neurology recommendations. Anticipate discharge in a.m. after neurology recommendations and if symptoms of alcohol withdrawal improved. Exam Vital Signs Temp Pulse Resp BP Pulse Ox O2 Del Method O2 Flow Rate 97.4 F 67 16 118/76 95 Room Air 1 04/01/25 12:00 04/01/25 12:00 04/01/25 12:00 04/01/25 12:00 04/01/25 12:00 04/01/25 12:00 03/31/25 04:00 Narrative Exam Physical Exam General: Awake and in no acute distress. Conversational and non-toxic appearing. Tremors improved. HEENT: Normocephalic, atraumatic, mucous membranes moist. Heart: Regular rate and rhythm, no murmurs. Lungs: Clear to auscultation with no wheezing or crackles. Abdomen: Soft, nondistended, nontender, positive bowel sounds. ?No guarding or rebound tenderness. Neurologic: Alert and oriented x3, no gross neurological deficit, and patient able to move all 4 extremities. Extremities: No edema. Skin: No rash or ecchymoses. Objective Labs 04/01/25 05:40 04/01/25 05:40 Labs: Laboratory Results - last 24 hr 04/01/25 05:40 WBC 5.6 RBC 2.34 L Hgb 9.1 L Hct 26.6 L MCV 114 H MCH 38.9 H MCHC 34.2 RDW Std Deviation 56.4 H Plt Count 163 Neut % (Auto) 50 Lymph % (Auto) 26 [place] % (Auto) 18 H Eos % (Auto) 5 Baso % (Auto) 1 Neut # (Auto) 2.8 Lymph # (Auto) 1.4 [place] # (Auto) 1.0 H Eos # (Auto) 0.3 Baso # (Auto) 0.0 Immature Gran # (Auto) 0.06 H Absolute Nucleated RBC 0.00 Immature Gran % 1 H Nucleated RBC % 0 Sodium 136 Potassium 4.6 Chloride 101 Carbon Dioxide 26.5 Anion Gap 9 BUN 7 L Creatinine 0.7 Estim Creat Clear Calc 134.4 eGFR > 60 BUN/Creatinine Ratio 10 L Glucose 87 Calculated Osmolality 268 L Calcium 9.3 Corrected Calcium 9.6 Phosphorus 4.6 Magnesium 1.5 L Total Bilirubin 0.4 AST 63 H ALT 31 Alkaline Phosphatase 125 H Total Protein 6.3 Albumin 3.6 Globulin 2.7 Albumin/Globulin Ratio 1.3 Quality Measures Quality Measures none Assessment & Plan Assessment Current Active Medications: Generic Name Dose Route Start Last Admin Trade Name Freq PRN Reason Stop Dose Admin Acetaminophen 650 mg 03/27/25 08:22 Acetaminophen 325 Mg Tablet PO 04/26/25 08:21 Q6H PRN Fever >100.4, Pain 1-3 Artificial Tears 0 drop 03/30/25 13:41 Artificial Tears 225 Drop/15 Ml Btl BOTH EYES 04/29/25 13:40 PRN PRN TO KEEP EYES MOIST Chlordiazepoxide HCl 50 mg 04/01/25 21:00 Chlordiazepoxide Hcl 25 Mg Capsule PO 04/06/25 20:59 BID CK Diazepam 2.5 mg 03/31/25 11:50 Diazepam Inj 5 Mg/Ml Vial 2 Ml IVP 04/03/25 08:16 Q2HR PRN CIWA SCORE 8-13 Diazepam 5 mg 03/31/25 11:50 Diazepam Inj 5 Mg/Ml Vial 2 Ml IVP 04/03/25 08:16 Q2HR PRN CIWA SCORE 14-19 Diazepam 10 mg 03/31/25 11:50 Diazepam Inj 5 Mg/Ml Vial 2 Ml IVP 04/03/25 08:16 Q2HR PRN CIWA SCORE 20-25 Diazepam 10 mg 04/01/25 12:17 Diazepam Inj 5 Mg/Ml Vial 2 Ml IVP X1 PRN AGITATION (SEVERE) Gabapentin 100 mg 04/01/25 14:00 04/01/25 13:34 Gabapentin 100 Mg Capsule PO 05/01/25 13:59 100 mg TID CK Administration Heparin Sodium (Porcine) 5,000 unit 03/27/25 09:00 04/01/25 08:05 Heparin Sod Inj 5000 Unit/Ml Vial SC 04/10/25 08:59 5,000 unit Q12HR CK Administration Levetiracetam 1,000 mg 03/29/25 21:00 04/01/25 08:27 Levetiracetam Inj 100 Mg/Ml Vial 5ml IVP 04/28/25 20:59 1,000 mg Q12HR CK Administration Ondansetron HCl 4 mg 03/27/25 08:22 Ondansetron Inj 2 Mg/Ml Inj 2 Ml IVP 04/26/25 08:21 Q6H PRN NAUSEA OR VOMITING Protocol Plan Davon Morocho 39y/o M, with PMH of seizure disorder and alcohol use, presented to the ED on 03/27/2025 for seizure activity after a fall. Patient was admitted for management of breakthrough seizures. #Alcohol dependence with withdrawal #Alcohol Use disorder #Alcohol related liver disease #Transaminitis -Patient denies consuming alcohol for months, but previously in ED, patient noted that he drank sips of alcohol -AST 237, ALT 35, ALP 142, platelet count low 130 -Ethyl Alcohol <3 -The CIWA score on 03/29/2025 2pm was 27. Patient was hallucinating with agitation. Patient received Librium 50mg x1, Gabapentin 600mg x1, Diazepam 10mg IV x1, and Zipraxidone IM 10mg x1. Plan: - Librium 50 twice daily - Gabapentin 100 p.o. 3 times daily -Folic acid 1mg po bid -Thiamine 100mg po bid - CIWA protocol with oral Ativan - Seizure precautions #Seizure, tonic clonic #Episode of fall #History of Seizure disorder -Witnessed seizure with whole body shaking, Postictal confusion/headache/Fatigue, abrupt onset, Amnesia to the event. Lower lip trauma, However, no tongue bite. -Head CT (03/27/2025): Negative for acute hemorrhage, mass effect or midline shift -Elevated creatinine kinase total 452, and lactic acid 2.2 -Patient's breakthrough seizure likely due to poor compliance of anti-seizure medications and heavy alcohol use. Plan: -Repeat EEG ordered -Resumed Home med Keppra 1000mg po bid -Consulted Neurology, , appreciate recommendations -Seizure precautions, neurochecks every 4 hour #Fever episode, resolved #Electrolyte abnormalities #Hypomagnesemia #Hypophosphatemia #Hypokalemia -Correct and replace electrolytes as needed Disposition: Med surg Diet: Regular Diet GI prophylaxis: Not indicated DVT prophylaxis: Heparin 5000units SC q12hr Code: FULL Case discussed with Attending Physician Dr. Joel Hill MD Internal Medicine PGY-2 Disclaimer: This note was dictated by speech recognition. Minor errors in baked goods stock clerk may be present due to voice recognition software. Attending Provider Attestation/Addendum I have discussed and was present for the essential components of the history, physical examination, diagnosis, and treatment plan with the resident. I agree with the patient's care as documented by the resident and amended herein by me. Dani Reddy DO. Although this document has been carefully reviewed, there may still be some phonetic and other typographical errors. These errors are purely grammatical due to imperfections in the software program and should not be construed in any way to compromise the substance of the patient's medical care during this visit. Patient seen and evaluated this AM. No acute events overnight, no further seizure activity, CIWA score reported as 2 this morning. Significant labs include a hemoglobin 9.1, MCV 114, sodium 136, potassium 4.6. EEG was taken however read is pending, neurology consulted, appreciate recommendations, will continue Librium, folic acid, thiamine, and Keppra for now. Possible DC tomorrow pending specialist recommendations.
[2025-04-01 16:00] VITALS: BP 126/71; PULSE 64; PULSE 71; RESP 18; TEMP 36.4; O2SAT 96
[2025-04-01 16:57] VITALS: BMI 21.4
[2025-04-01 20:00] VITALS: BP 111/78; PULSE 82; RESP 19; TEMP 36.6; O2SAT 97
[2025-04-02] VITALS: BP 110/68; PULSE 94; RESP 17; TEMP 36.9; O2SAT 97
[2025-04-02] MEDS: ACETAMINOPHEN 325 MG TABLET 650 MG PO (00:24)
[2025-04-02 04:00] VITALS: BP 96/55; PULSE 76; PULSE 86; RESP 17; TEMP 36.4; O2SAT 96
[2025-04-02] MEDS: GABAPENTIN 100 MG CAPSULE PO ×2 (06:01→21:17)
[2025-04-02 06:13] LABS: Basophils # (Auto) 0.1 Thou/mm3 (0.0-0.2); Basophils % (Auto) 1 % (0-2.5); Eosinophils # (Auto) 0.3 Thou/mm3 (0.0-0.5); Eosinophils % (Auto) 5 % (0-10); Hematocrit 24.6 % (41.0-53.0); Immature Granulocytes Auto 0.11 Thou/mm3 (0.00-0.00); Lymphocytes # (Auto) 1.7 Thou/mm3 (1.0-4.8); Lymphocytes % (Auto) 28 % (10-50); Mean Corpuscular HGB Conc 34.6 g/dl (31.0-37.0); Mean Corpuscular Hemoglobin 37.9 pg (25.0-35.0); Mean Corpuscular Volume 110 fL (80-100); Monocytes # (Auto) 1.3 Thou/mm3 (0.0-0.8); Monocytes % (Auto) 21 % (0-12); Neutrophils # (Auto) 2.7 Thou/mm3 (1.8-7.7); Neutrophils % (Auto) 43 % (37-80); Nucleated Red Blood Cell # 0.00 Thou/mm3 (0.00-0.00); Nucleated Red Blood Cell % 0 /100 WBC (0); Platelet Count 247 Thou/mm3 (140-440); RDW Standard Deviation 53.6 fL (35.1-43.9); Red Blood Count 2.24 Miln/mm3 (4.50-5.90); White Blood Count 6.2 Thou/mm3 (3.8-10.6)
[2025-04-02 06:18] LABS: Hemoglobin 8.5 g/dL (13.5-16.0)
[2025-04-02 06:35] LABS: Alanine Aminotransferase 42 U/L (10-49); Albumin, Serum 3.7 gm/dL (3.5-5.0); Albumin/Globulin Ratio 1.4 (1.2-2.2); Alkaline Phosphatase 127 U/L (46-116); Anion Gap 9 (7-16); Aspartate Amino Transferase 91 U/L (0-34); BUN/Creatinine Ratio 15 Ratio (12-20); Bilirubin,Total 0.4 mg/dL (0.3-1.2); Blood Urea Nitrogen 9 mg/dL (9-23); Calcium 9.4 mg/dL (8.3-10.6); Calcium (Corrected) 9.6 mg/dL (8.5-10.1); Carbon Dioxide 26.1 mMol/L (20.0-31.0); Chloride 99 mMol/L (98-107); Creatinine (Component) 0.6 mg/dL (0.6-1.3); Estimated Creatinine Clearance 156.8 mL/min (>60); Globulin 2.7 gm/dL (2.3-3.5); Glucose 90 mg/dL (74-106); Magnesium 1.2 mg/dL (1.6-2.6); Osmolality,Calculated 266 (275-295); Phosphorous 4.6 mg/dL (2.4-5.1); Potassium 4.0 mMol/L (3.4-5.1); Sodium 134 mMol/L (136-145); Total Protein 6.4 gm/dL (5.7-8.2); eGFR > 60 See Note
[2025-04-02 08:00] VITALS: BP 100/67; PULSE 71; RESP 18; TEMP 36.3; O2SAT 97
[2025-04-02] MEDS: Magnesium Sulfate 4 GM Ivpb 4 GM/50 ML BAG IV (08:22)
[2025-04-02] MEDS: HEPARIN SOD INJ 5000 UNIT/ML VIAL SC ×2 (08:22→21:27)
[2025-04-02 11:48] VITALS: BP 98/67; PULSE 82; RESP 18; TEMP 36.3; O2SAT 96
--- NOTE | 2025-04-02 13:09 | PD.TNEEG ---
EEG Report EEG Interpretation [facility] Routine EEG Report Video Performed: Performed Demographics:Patient Name:???Davon Blanchard Date of :???1985 Identification Number:??? Study Times: Study Start Time:???04/01/2025 15:42:00 Study End Time:???04/01/2025 16:04:00 Duration:???22?minutes Indication(s):Seizures, Encephalopathy Technical Summary: This EEG was performed utilizing standard International 10-20 System of electrode placement. One channel electrocardiogram was monitored. Data were obtained and interpreted utilizing referential montage recording, with reformatting to longitudinal, transverse bipolar, and referential montages as necessary for interpretation. State(s): ?Awake ?Drowsy ?Asleep Activation Procedures: Photic Stimulation:?Performed : No Photic Driving EEG Description: Background: ?Findings specific and/or consistent with the states of waking, drowsiness, and sleep are seen. Drowsiness and sleep predominate. ?Waking background mildly abnormal: amplitude low-normal at 10-20 uV and continuous, symmetric, but background organization abnormal with anterior-posterior organization mildly subnormal and posterior dominant rhythm during waking slowed (~7-8 Hz) and only briefly-seen. ?Frequent very brief to brief bilateral shifting irregular theta slowing beyond what would be typical for state. ? ?Pertinent negatives: ?No seizures or other epileptiform or focal findings. ? ?Muscle, electrode, and eye movement artifacts are noted. Impression: Consistent with mild bilateral cerebral dysfunction without cortical irritability. Clinical Correlation: Mildly abnormal EEG due to mild background disorganization and frequent brief bilateral slowing, as can be seen in states of encephalopathy. ? ?No seizures or epileptiform findings. ? Dr Maikol Albert [facility] For Inpatient follow-up with [facility] physician please call [facility] at . As we are not an outpatient service for any post hospital discharge needs please contact the hospital for assistance. If you have any questions for the [facility] physicians or need to reconsult for clinical or diagnostic changes please contact us via [facility] at . Signature :?Maikol Albert
--- NOTE | 2025-04-02 14:45 | PD.RESPRO ---
Documentation for date of: 04/02/25 Subjective Subjective Interval history: No overnight events. Patient CIWA score remains low. Patient denies anxiety, nausea, vomiting, visual or tactile or auditory hallucinations. Patient's family expressed concern due to chronic issue of poor memory and confabulation that has been progressive. Patient also expresses some recent gait abnormalities. PT eval ordered, pending. B12 and folate ordered, pending. EEG read by neuro, unremarkable, cleared for discharge per neurology. Plan for discharge tomorrow. Exam Vital Signs Temp Pulse Resp BP Pulse Ox O2 Del Method O2 Flow Rate 97.4 F 82 18 98/67 96 Room Air 1 04/02/25 11:48 04/02/25 11:48 04/02/25 11:48 04/02/25 11:48 04/02/25 11:48 04/02/25 08:00 03/31/25 04:00 Narrative Exam Physical Exam General: Awake and in no acute distress. Conversational and non-toxic appearing. Tremors improved. HEENT: Normocephalic, atraumatic, mucous membranes moist. Heart: Regular rate and rhythm, no murmurs. Lungs: Clear to auscultation with no wheezing or crackles. Abdomen: Soft, nondistended, nontender, positive bowel sounds. ?No guarding or rebound tenderness. Neurologic: Alert and oriented x3, no gross neurological deficit, and patient able to move all 4 extremities. Extremities: No edema. Skin: No rash or ecchymoses. Objective Labs 04/02/25 05:03 04/02/25 05:03 Labs: Laboratory Results - last 24 hr 04/02/25 05:03 WBC 6.2 RBC 2.24 L Hgb 8.5 L Hct 24.6 L MCV 110 H MCH 37.9 H MCHC 34.6 RDW Std Deviation 53.6 H Plt Count 247 D Neut % (Auto) 43 Lymph % (Auto) 28 [place] % (Auto) 21 H Eos % (Auto) 5 Baso % (Auto) 1 Neut # (Auto) 2.7 Lymph # (Auto) 1.7 [place] # (Auto) 1.3 H Eos # (Auto) 0.3 Baso # (Auto) 0.1 Immature Gran # (Auto) 0.11 H Absolute Nucleated RBC 0.00 Immature Gran % 2 H Nucleated RBC % 0 Sodium 134 L Potassium 4.0 D Chloride 99 Carbon Dioxide 26.1 Anion Gap 9 BUN 9 Creatinine 0.6 Estim Creat Clear Calc 156.8 eGFR > 60 BUN/Creatinine Ratio 15 Glucose 90 Calculated Osmolality 266 L Calcium 9.4 Corrected Calcium 9.6 Phosphorus 4.6 Magnesium 1.2 L Total Bilirubin 0.4 AST 91 H ALT 42 Alkaline Phosphatase 127 H Total Protein 6.4 Albumin 3.7 Globulin 2.7 Albumin/Globulin Ratio 1.4 Quality Measures Quality Measures VTE prophylaxis Assessment & Plan Assessment Current Active Medications: Generic Name Dose Route Start Last Admin Trade Name Freq PRN Reason Stop Dose Admin Acetaminophen 650 mg 03/27/25 08:22 04/02/25 00:24 Acetaminophen 325 Mg Tablet PO 04/26/25 08:21 650 mg Q6H PRN Administration Fever >100.4, Pain 1-3 Artificial Tears 0 drop 03/30/25 13:41 Artificial Tears 225 Drop/15 Ml Btl BOTH EYES 04/29/25 13:40 PRN PRN TO KEEP EYES MOIST Chlordiazepoxide HCl 50 mg 04/02/25 09:00 04/02/25 08:22 Chlordiazepoxide Hcl 25 Mg Capsule PO 04/07/25 08:59 50 mg QDAY CK Administration Diazepam 5 mg 04/01/25 16:59 Diazepam Inj 5 Mg/Ml Vial 2 Ml IVP X1 PRN Breakthrough Agitation Gabapentin 100 mg 04/01/25 14:00 04/02/25 14:31 Gabapentin 100 Mg Capsule PO 05/01/25 13:59 Not Given TID CK Heparin Sodium (Porcine) 5,000 unit 03/27/25 09:00 04/02/25 08:22 Heparin Sod Inj 5000 Unit/Ml Vial SC 04/10/25 08:59 5,000 unit Q12HR CK Administration Levetiracetam 1,000 mg 04/01/25 21:00 04/02/25 08:22 Levetiracetam 250 Mg Tablet PO 05/01/25 20:59 1,000 mg BID CK Administration Lorazepam 0.5 mg 04/01/25 16:59 Lorazepam 0.5 Mg Tablet PO 04/06/25 16:58 Q4HR PRN CIWA Score 2-6 Lorazepam 1 mg 04/01/25 16:59 Lorazepam 0.5 Mg Tablet PO 04/06/25 16:58 Q4HR PRN CIWA SCORE 7-11 Lorazepam 2 mg 04/01/25 16:59 Lorazepam 0.5 Mg Tablet PO 04/06/25 16:58 Q4HR PRN CIWA SCORE 12-15 Ondansetron HCl 4 mg 03/27/25 08:22 Ondansetron Inj 2 Mg/Ml Inj 2 Ml IVP 04/26/25 08:21 Q6H PRN NAUSEA OR VOMITING Protocol Plan Davon Morocho 39y/o M, with PMH of seizure disorder and alcohol use, presented to the ED on 03/27/2025 for seizure activity after a fall. Patient was admitted for management of breakthrough seizures. #Alcohol dependence with withdrawal #Alcohol Use disorder #Alcohol related liver disease #Transaminitis Patient denies consuming alcohol for months, but previously in ED, patient noted that he drank sips of alcohol AST 237, ALT 35, ALP 142, platelet count low 130 Ethyl Alcohol <3 The CIWA score on 03/29/2025 2pm was 27. Patient was hallucinating with agitation. Patient received Librium 50mg x1, Gabapentin 600mg x1, Diazepam 10mg IV x1, and Zipraxidone IM 10mg x1. Patient's family expressed concern for progressive memory issues with confabulation. Patient expressed concern for recent gait abnormalities. Concern for possible Warnicke?Korsakoff syndrome. Plan: - Librium 50 once daily - Gabapentin 100 p.o. 3 times daily -Folic acid 1mg po bid -Thiamine 100mg po bid - CIWA protocol with oral Ativan - Seizure precautions - PT eval pending - B12 and folate ordered, pending #Seizure, tonic clonic #Episode of fall #History of Seizure disorder -Witnessed seizure with whole body shaking, Postictal confusion/headache/Fatigue, abrupt onset, Amnesia to the event. Lower lip trauma, However, no tongue bite. -Head CT (03/27/2025): Negative for acute hemorrhage, mass effect or midline shift -Elevated creatinine kinase total 452, and lactic acid 2.2 -Patient's breakthrough seizure likely due to poor compliance of anti-seizure medications and heavy alcohol use. Repeat EEG unremarkable, cleared for discharge per neurology. Plan: -Repeat EEG ordered -Resumed Home med Keppra 1000mg po bid -Consulted Neurology, , appreciate recommendations -Seizure precautions, neurochecks every 4 hour #Fever episode, resolved #Electrolyte abnormalities #Hypomagnesemia #Hypophosphatemia #Hypokalemia -Correct and replace electrolytes as needed Disposition: Med surg Diet: Regular Diet GI prophylaxis: Not indicated DVT prophylaxis: Heparin 5000units SC q12hr Code: FULL Case discussed with Attending Physician Dr. Joel Alex MD Internal Medicine PGY-2 Disclaimer: This note was dictated by speech recognition. Minor errors in medicare interviewer may be present due to voice recognition software. Attending Provider Attestation/Addendum I have discussed and was present for the essential components of the history, physical examination, diagnosis, and treatment plan with the resident. I agree with the patient's care as documented by the resident and amended herein by me. Dani Reddy DO. Although this document has been carefully reviewed, there may still be some phonetic and other typographical errors. These errors are purely grammatical due to imperfections in the software program and should not be construed in any way to compromise the substance of the patient's medical care during this visit. Patient seen and evaluated this AM. No acute events overnight, vital signs stable, patient afebrile, CIWA score approximately 3 this morning. Hemoglobin low but stable at 8.5, magnesium low at 1.2 which was repleted. EEG looked okay per neurology, cleared for discharge on their end however considering the patient's weakness and unsteadiness with ambulation, will get up a physical therapy evaluation which will not occur till tomorrow. Likely discharge after that to either SNF or home with home health.
[2025-04-02 15:56] VITALS: BP 98/62; PULSE 73; RESP 18; TEMP 36.2; O2SAT 95
[2025-04-02 20:00] VITALS: BP 110/75; PULSE 77; PULSE 87; RESP 17; TEMP 36.7; O2SAT 97
[2025-04-02 22:31] LABS: Folate 16.73 ng/mL (>5.38); Vitamin B12 262 pg/mL (211-911)
--- NOTE | 2025-04-02 23:33 | VVPN_ITS ---
Telemedicine visit statement This visit was conducted with the use of interactive audio and video telecommunications system that permits real time communication between the patient and the provider. Patient's verbal consent for virtual visit was obtained on 04/02/25 at 2333. Documentation for date of: 04/02/25 Subjective Subjective Interval history: Patient is in MedSurg, no seizures reported. Still remains confused and forgetful and family is concerned about progression. Virtual exam Vital Signs Temp Pulse Resp BP Pulse Ox O2 Del Method O2 Flow Rate 98.1 F 87 17 110/75 97 Room Air 1 04/02/25 20:00 04/02/25 20:00 04/02/25 20:00 04/02/25 20:00 04/02/25 20:00 04/02/25 20:00 03/31/25 04:00 Objective Labs 04/02/25 05:03 04/02/25 05:03 Labs: Laboratory Results - last 24 hr 04/02/25 05:03 WBC 6.2 RBC 2.24 L Hgb 8.5 L Hct 24.6 L MCV 110 H MCH 37.9 H MCHC 34.6 RDW Std Deviation 53.6 H Plt Count 247 D Neut % (Auto) 43 Lymph % (Auto) 28 [place] % (Auto) 21 H Eos % (Auto) 5 Baso % (Auto) 1 Neut # (Auto) 2.7 Lymph # (Auto) 1.7 [place] # (Auto) 1.3 H Eos # (Auto) 0.3 Baso # (Auto) 0.1 Immature Gran # (Auto) 0.11 H Absolute Nucleated RBC 0.00 Immature Gran % 2 H Nucleated RBC % 0 Sodium 134 L Potassium 4.0 D Chloride 99 Carbon Dioxide 26.1 Anion Gap 9 BUN 9 Creatinine 0.6 Estim Creat Clear Calc 156.8 eGFR > 60 BUN/Creatinine Ratio 15 Glucose 90 Calculated Osmolality 266 L Calcium 9.4 Corrected Calcium 9.6 Phosphorus 4.6 Magnesium 1.2 L Total Bilirubin 0.4 AST 91 H ALT 42 Alkaline Phosphatase 127 H Total Protein 6.4 Albumin 3.7 Globulin 2.7 Albumin/Globulin Ratio 1.4 Vitamin B12 262 Folate 16.73 Assessment & Plan Problem List (1) Recurrent seizures: Status: Acute Assessment and plan: Continue with Keppra and gabapentin as before Follow seizure precaution and avoid seizure triggers (2) Alcohol abuse: Status: Chronic Assessment and plan: CIWA score remains low As the patient continues to remain confused and forgetful more and more that is progressively getting worse as noticed by the family, he might be developing alcohol-related brain injury/Warnicke's encephalopathy. Follow-up with thiamine, folate, vitamin B12; recommend to check homocystine and methylmalonic acid and MRI brain with and without contrast to evaluate for structural changes. Needs alcohol cessation to prevent further complications, in addition to folate and thiamine supplementation for now.
[2025-04-03] VITALS (8 sets, daily range): BP systolic 91–107; BP diastolic 55–70; PULSE 72–95; RESP 15–18; TEMP 36.2–37; O2SAT 93–97
[2025-04-03] MEDS: ACETAMINOPHEN 325 MG TABLET 650 MG PO (01:36)
[2025-04-03] MEDS: MELATONIN 3 MG TABLET 6 MG PO ×2 (01:36→21:09)
[2025-04-03] MEDS: GABAPENTIN 100 MG CAPSULE PO ×3 (05:15→21:05)
[2025-04-03 05:47] LABS: Basophils # (Auto) 0.1 Thou/mm3 (0.0-0.2); Basophils % (Auto) 1 % (0-2.5); Eosinophils # (Auto) 0.3 Thou/mm3 (0.0-0.5); Eosinophils % (Auto) 5 % (0-10); Hematocrit 25.1 % (41.0-53.0); Immature Granulocytes Auto 0.15 Thou/mm3 (0.00-0.00); Lymphocytes # (Auto) 1.7 Thou/mm3 (1.0-4.8); Lymphocytes % (Auto) 24 % (10-50); Mean Corpuscular HGB Conc 34.7 g/dl (31.0-37.0); Mean Corpuscular Hemoglobin 38.3 pg (25.0-35.0); Mean Corpuscular Volume 111 fL (80-100); Monocytes # (Auto) 1.6 Thou/mm3 (0.0-0.8); Monocytes % (Auto) 22 % (0-12); Neutrophils # (Auto) 3.2 Thou/mm3 (1.8-7.7); Neutrophils % (Auto) 46 % (37-80); Nucleated Red Blood Cell # 0.00 Thou/mm3 (0.00-0.00); Nucleated Red Blood Cell % 0 /100 WBC (0); Platelet Count 257 Thou/mm3 (140-440); RDW Standard Deviation 53.2 fL (35.1-43.9); Red Blood Count 2.27 Miln/mm3 (4.50-5.90); White Blood Count 7.0 Thou/mm3 (3.8-10.6)
[2025-04-03 05:52] LABS: Hemoglobin 8.7 g/dL (13.5-16.0)
[2025-04-03 05:59] LABS: Alanine Aminotransferase 50 U/L (10-49); Albumin, Serum 3.6 gm/dL (3.5-5.0); Albumin/Globulin Ratio 1.3 (1.2-2.2); Alkaline Phosphatase 131 U/L (46-116); Anion Gap 10 (7-16); Aspartate Amino Transferase 91 U/L (0-34); BUN/Creatinine Ratio 10 Ratio (12-20); Bilirubin,Total 0.4 mg/dL (0.3-1.2); Blood Urea Nitrogen 7 mg/dL (9-23); Calcium 8.8 mg/dL (8.3-10.6); Calcium (Corrected) 9.1 mg/dL (8.5-10.1); Carbon Dioxide 25.5 mMol/L (20.0-31.0); Chloride 100 mMol/L (98-107); Creatinine (Component) 0.7 mg/dL (0.6-1.3); Estimated Creatinine Clearance 134.4 mL/min (>60); Globulin 2.8 gm/dL (2.3-3.5); Glucose 94 mg/dL (74-106); Magnesium 1.9 mg/dL (1.6-2.6); Osmolality,Calculated 268 (275-295); Phosphorous 4.6 mg/dL (2.4-5.1); Potassium 4.0 mMol/L (3.4-5.1); Sodium 135 mMol/L (136-145); Total Protein 6.4 gm/dL (5.7-8.2); eGFR > 60 See Note
[2025-04-03] MEDS: HEPARIN SOD INJ 5000 UNIT/ML VIAL SC ×2 (08:54→21:06)
[2025-04-03] MEDS: THIAMINE INJ 500 MG in SODIUM CHLORIDE 0.9% 100 ML 205 MG IV ×3 (09:01→21:06)
--- NOTE | 2025-04-03 09:34 | PC.SS ---
Follow up note: On IV vitamin. On CWAL Protocol. MRI pending. Pt will return home upon dc.
--- NOTE | 2025-04-03 14:08 | ESPR_ITS ---
Documentation for date of: 04/03/25 Subjective Subjective Interval history: Patient seen and examined at bedside. No acute overnight events, CIWA 1-5 overnight. In AM, CIWA 0. Patient denies anxiety, tremors, hallucinations. Per sister at bedside, she spoke to partner of patient at home and was notified that postictal state lasted about 10 days with confusion however upon speaking to her mother patient has had episodes of minor confusion without recent seizure. Decrease Librium from 50 mg daily to 25 mg daily. Continue gabapentin and CIWA protocol. PT evaluation recommends home health PT. Per neurology, continue Keppra 1 g twice daily and obtain MMA, homocystine and thiamine levels, order MRI with and without contrast to rule out structural disease with ativan 2 mg x1 for claustrophobia prior to MRI to be given. Started IV thiamine 500 mg 3 times daily for 2 days plan to down titrate following. A B12 injection administered. Exam Vital Signs Temp Pulse Resp BP Pulse Ox O2 Del Method O2 Flow Rate 97.6 F 86 18 91/62 96 Room Air 1 04/03/25 11:23 04/03/25 11:23 04/03/25 11:23 04/03/25 11:23 04/03/25 11:23 04/03/25 11:23 03/31/25 04:00 Narrative Exam GENERAL: AOx3, no acute distress, no tremors HEENT: mucous membranes moist, bilateral sclera anicteric CARDIOVASCULAR: regular rate and rhythm, S1/S2 present, no murmurs appreciated PULMONARY: clear to auscultation bilaterally, no rales/rhonchi/wheezes ABDOMINAL: soft, non-tender, non-distended, no rebound/guarding, bowel sounds present EXTREMITIES: no peripheral edema SKIN: warm and dry, intact, no rashes NEURO: CN II-XII grossly intact, no focal deficits, alert, following commands Objective Labs 04/03/25 04:40 04/03/25 04:40 Labs: Laboratory Results - last 24 hr 04/02/25 04/03/25 05:03 04:40 WBC 7.0 RBC 2.27 L Hgb 8.7 L Hct 25.1 L MCV 111 H MCH 38.3 H MCHC 34.7 RDW Std Deviation 53.2 H Plt Count 257 Neut % (Auto) 46 Lymph % (Auto) 24 [place] % (Auto) 22 H Eos % (Auto) 5 Baso % (Auto) 1 Neut # (Auto) 3.2 Lymph # (Auto) 1.7 [place] # (Auto) 1.6 H Eos # (Auto) 0.3 Baso # (Auto) 0.1 Immature Gran # (Auto) 0.15 H Absolute Nucleated RBC 0.00 Immature Gran % 2 H Nucleated RBC % 0 Sodium 135 L Potassium 4.0 Chloride 100 Carbon Dioxide 25.5 Anion Gap 10 BUN 7 L Creatinine 0.7 Estim Creat Clear Calc 134.4 eGFR > 60 BUN/Creatinine Ratio 10 L Glucose 94 Calculated Osmolality 268 L Calcium 8.8 Corrected Calcium 9.1 Phosphorus 4.6 Magnesium 1.9 Total Bilirubin 0.4 AST 91 H ALT 50 H Alkaline Phosphatase 131 H Total Protein 6.4 Albumin 3.6 Globulin 2.8 Albumin/Globulin Ratio 1.3 Vitamin B12 262 Folate 16.73 Quality Measures Quality Measures VTE prophylaxis Assessment & Plan Assessment Current Active Medications: Generic Name Dose Route Start Last Admin Trade Name Freq PRN Reason Stop Dose Admin Acetaminophen 650 mg 03/27/25 08:22 04/03/25 01:36 Acetaminophen 325 Mg Tablet PO 04/26/25 08:21 650 mg Q6H PRN Administration Fever >100.4, Pain 1-3 Artificial Tears 0 drop 03/30/25 13:41 Artificial Tears 225 Drop/15 Ml Btl BOTH EYES 04/29/25 13:40 PRN PRN TO KEEP EYES MOIST Chlordiazepoxide HCl 25 mg 04/04/25 09:00 Chlordiazepoxide Hcl 25 Mg Capsule PO 04/09/25 08:59 QDAY CK Diazepam 5 mg 04/01/25 16:59 Diazepam Inj 5 Mg/Ml Vial 2 Ml IVP X1 PRN Breakthrough Agitation Gabapentin 100 mg 04/01/25 14:00 04/03/25 05:15 Gabapentin 100 Mg Capsule PO 05/01/25 13:59 100 mg TID CK Administration Heparin Sodium (Porcine) 5,000 unit 03/27/25 09:00 04/03/25 08:54 Heparin Sod Inj 5000 Unit/Ml Vial SC 04/10/25 08:59 5,000 unit Q12HR CK Administration Thiamine HCl 500 mg/ Sodium 105 mls @ 205 mls/hr 04/03/25 08:30 04/03/25 09:01 Chloride IV 05/03/25 08:29 205 mls/hr TID CK Administration Levetiracetam 1,000 mg 04/01/25 21:00 04/03/25 08:53 Levetiracetam 250 Mg Tablet PO 05/01/25 20:59 1,000 mg BID CK Administration Lorazepam 0.5 mg 04/01/25 16:59 04/02/25 21:19 Lorazepam 0.5 Mg Tablet PO 04/06/25 16:58 0.5 mg Q4HR PRN Administration CIWA Score 2-6 Lorazepam 1 mg 04/01/25 16:59 Lorazepam 0.5 Mg Tablet PO 04/06/25 16:58 Q4HR PRN CIWA SCORE 7-11 Lorazepam 2 mg 04/01/25 16:59 Lorazepam 0.5 Mg Tablet PO 04/06/25 16:58 Q4HR PRN CIWA SCORE 12-15 Lorazepam 2 mg 04/03/25 11:41 Lorazepam 2 Mg/Ml Vial IVP X1 PRN Claustrophobia Ondansetron HCl 4 mg 03/27/25 08:22 Ondansetron Inj 2 Mg/Ml Inj 2 Ml IVP 04/26/25 08:21 Q6H PRN NAUSEA OR VOMITING Protocol Plan Davon Blanchard 39y/o M, with PMH of seizure disorder and alcohol use, presented to the ED on 03/27/2025 for seizure activity after a fall. Patient was admitted for management of breakthrough seizures. #Alcohol dependence with withdrawal #Alcohol Use disorder #Alcohol related liver disease #Transaminitis, stable #Macrocytic anemia Patient denies consuming alcohol for months, but previously in ED, patient noted that he drank sips of alcohol AST 237, ALT 35, ALP 142, platelet count low 130 Ethyl Alcohol <3 The CIWA score on 03/29/2025 2pm was 27. Patient was hallucinating with agitation. Patient received Librium 50mg x1, Gabapentin 600mg x1, Diazepam 10mg IV x1, and Zipraxidone IM 10mg x1. Patient's family expressed concern for progressive memory issues with confabulation. Patient expressed concern for recent gait abnormalities. Concern for possible Warnicke?Korsakoff syndrome. B12 and folate wnl. s/p B12 IM 04/03 Plan: - Librium decreased from 50 mg QD to 25 mg QD - Gabapentin 100 p.o. 3 times daily -Folic acid 1mg po bid - Start thiamine 500 mg IV TID for 2 days (04/03-04/04) and subsequently 250 mg QD for 5 days followed by 100 mg QD - CIWA protocol with oral Ativan - PT eval: Will need home health PT #Seizure, tonic clonic #Episode of fall #History of Seizure disorder -Witnessed seizure with whole body shaking, Postictal confusion/headache/Fatigue, abrupt onset, Amnesia to the event. Lower lip trauma, However, no tongue bite. -Head CT (03/27/2025): Negative for acute hemorrhage, mass effect or midline shift -Elevated creatinine kinase total 452, and lactic acid 2.2 -Patient's breakthrough seizure likely due to poor compliance of anti-seizure medications and heavy alcohol use. Repeat EEG unremarkable Plan: -Resumed Home med Keppra 1000mg po bid - Neurology consulted, recs appreciated: Ordered thiamine, homocystine and MMA, MRI brain with and without contrast ordered to evaluate for structural changes -Seizure precautions, neurochecks every 4 hour #Fever episode, resolved #Electrolyte abnormalities #Hypomagnesemia, resolved #Hypophosphatemia, resolved #Hypokalemia, resolved -Correct and replace electrolytes as needed Disposition: Med surg Diet: Regular Diet GI prophylaxis: Not indicated DVT prophylaxis: Heparin 5000units SC q12hr Code: FULL Case discussed with Attending Physician Dr. Tristan Chao, DO Internal Medicine PGY-1 Senior Resident Attestation: The patient reported doing well. As per neuro recommendations, MRI brain with and without contrast was ordered, MMA, homocystine and thiamine levels were ordered. Started on thiamine 500 mg 3 times daily IV for 2 days, then we will taper down, for possibility of Warnicke Korsakoff syndrome. I discussed with and supervised the general internal medicine physician physician involved in the care of this patient. I personally saw and examined the patient and discussed the assessment and plan with the entire medicine team, including my attending. I agree with the assessment and plan as documented above. Yong Moss MD PGY3 Internal Medicine Attending Provider Attestation/Addendum Patient seen and examined. No seizure recurrence noted. Continue treatment for alcohol withdrawal syndrome. Monitor and replace electrolyte abnormalities. Mg at 1.9 today. Monitor QT interval. Discussed with staff. Physical therapy evaluation done. Home health recommended.
--- NOTE | 2025-04-03 16:42 | PC.CM ---
I received a referral for home health for PT. I reviewed patient's chart and I do not see that he has a PCP. I called Dr. Andrews to let him know I cannot order home health without a PCP. I was also concerned that he would not be appropriate for home health also because he was working and he is young. I let Dr. Andrews know that he can order outpatient PT if he feels patient needs PT.
--- NOTE | 2025-04-03 18:31 | ESPR_ITS ---
Documentation for date of: 04/03/25 Subjective Subjective Interval history: No acute events or seizures overnight.?Patient seen and examined at bedside, was calm and conversational although straying on topics and somewhat slow mentation. Sister at bedside, displaying support and care. CIWA has been low around 1-5, and 0 this morning.?MRI brain is pending at this time. Review of systems otherwise negative except what is mentioned above. Exam Vital Signs Temp Pulse Resp BP Pulse Ox O2 Del Method O2 Flow Rate 97.8 F 79 18 105/67 94 L Room Air 1 04/03/25 16:00 04/03/25 16:00 04/03/25 16:00 04/03/25 16:00 04/03/25 16:00 04/03/25 11:23 03/31/25 04:00 Narrative Exam Physical Exam General: Awake and in no acute distress. Conversational however slow at times and deviates from topic. HEENT: Normocephalic, atraumatic, mucous membranes moist. Heart: Regular rate and rhythm, normal S1 and S2, no murmurs. Lungs: Clear to auscultation with no wheezing or crackles. Abdomen: Soft, nondistended, nontender, positive bowel sounds. ?No guarding or rebound tenderness. Neurologic: Alert and oriented x3, no gross neurological deficit, and patient able to move all 4 extremities. Extremities: No edema. Skin: No rash or ecchymoses. Objective Labs 04/03/25 04:40 04/03/25 04:40 Labs: Laboratory Results - last 24 hr 04/02/25 04/03/25 05:03 04:40 WBC 7.0 RBC 2.27 L Hgb 8.7 L Hct 25.1 L MCV 111 H MCH 38.3 H MCHC 34.7 RDW Std Deviation 53.2 H Plt Count 257 Neut % (Auto) 46 Lymph % (Auto) 24 [place] % (Auto) 22 H Eos % (Auto) 5 Baso % (Auto) 1 Neut # (Auto) 3.2 Lymph # (Auto) 1.7 [place] # (Auto) 1.6 H Eos # (Auto) 0.3 Baso # (Auto) 0.1 Immature Gran # (Auto) 0.15 H Absolute Nucleated RBC 0.00 Immature Gran % 2 H Nucleated RBC % 0 Sodium 135 L Potassium 4.0 Chloride 100 Carbon Dioxide 25.5 Anion Gap 10 BUN 7 L Creatinine 0.7 Estim Creat Clear Calc 134.4 eGFR > 60 BUN/Creatinine Ratio 10 L Glucose 94 Calculated Osmolality 268 L Calcium 8.8 Corrected Calcium 9.1 Phosphorus 4.6 Magnesium 1.9 Total Bilirubin 0.4 AST 91 H ALT 50 H Alkaline Phosphatase 131 H Total Protein 6.4 Albumin 3.6 Globulin 2.8 Albumin/Globulin Ratio 1.3 Vitamin B12 262 Folate 16.73 Quality Measures Quality Measures VTE prophylaxis Assessment & Plan Assessment Current Active Medications: Generic Name Dose Route Start Last Admin Trade Name Freq PRN Reason Stop Dose Admin Acetaminophen 650 mg 03/27/25 08:22 04/03/25 01:36 Acetaminophen 325 Mg Tablet PO 04/26/25 08:21 650 mg Q6H PRN Administration Fever >100.4, Pain 1-3 Artificial Tears 0 drop 03/30/25 13:41 Artificial Tears 225 Drop/15 Ml Btl BOTH EYES 04/29/25 13:40 PRN PRN TO KEEP EYES MOIST Chlordiazepoxide HCl 25 mg 04/04/25 09:00 Chlordiazepoxide Hcl 25 Mg Capsule PO 04/09/25 08:59 QDAY CK Diazepam 5 mg 04/01/25 16:59 Diazepam Inj 5 Mg/Ml Vial 2 Ml IVP X1 PRN Breakthrough Agitation Gabapentin 100 mg 04/01/25 14:00 04/03/25 14:42 Gabapentin 100 Mg Capsule PO 05/01/25 13:59 100 mg TID CK Administration Heparin Sodium (Porcine) 5,000 unit 03/27/25 09:00 04/03/25 08:54 Heparin Sod Inj 5000 Unit/Ml Vial SC 04/10/25 08:59 5,000 unit Q12HR CK Administration Thiamine HCl 500 mg/ Sodium 105 mls @ 205 mls/hr 04/03/25 08:30 04/03/25 14:43 Chloride IV 05/03/25 08:29 205 mls/hr TID CK Administration Levetiracetam 1,000 mg 04/01/25 21:00 04/03/25 08:53 Levetiracetam 250 Mg Tablet PO 05/01/25 20:59 1,000 mg BID CK Administration Lorazepam 0.5 mg 04/01/25 16:59 04/02/25 21:19 Lorazepam 0.5 Mg Tablet PO 04/06/25 16:58 0.5 mg Q4HR PRN Administration CIWA Score 2-6 Lorazepam 1 mg 04/01/25 16:59 Lorazepam 0.5 Mg Tablet PO 04/06/25 16:58 Q4HR PRN CIWA SCORE 7-11 Lorazepam 2 mg 04/01/25 16:59 Lorazepam 0.5 Mg Tablet PO 04/06/25 16:58 Q4HR PRN CIWA SCORE 12-15 Lorazepam 2 mg 04/03/25 11:41 Lorazepam 2 Mg/Ml Vial IVP X1 PRN Claustrophobia Ondansetron HCl 4 mg 03/27/25 08:22 Ondansetron Inj 2 Mg/Ml Inj 2 Ml IVP 04/26/25 08:21 Q6H PRN NAUSEA OR VOMITING Protocol Plan 39-year-old male with past medical history of alcohol use disorder and possible seizure disorder who presented to the ED on 03/27/2025 for seizure activity at home. Patient was admitted for management of breakthrough seizures and neurology was consulted. #Seizure, tonic clonic #Alcohol withdrawal seizures #History of seizure disorder #Alcohol use disorder #Alcohol related liver disease #Transaminitis, stable #Macrocytic anemia #Possible Wernicke encephalopathy Alcohol-withdrawal related versus medication non-compliance. Patient had witnessed seizure at home and additional seizure in ED. Patient is on Keppra at home, compliance is uncertain. Additionally, patient had denied alcohol use for months but there was a question of whether patient drank alcohol prior to presentation. He presented with very high CIWA of 27 with hallucinations and agitation. As family has noted the patient continues to remain progressively confused and forgetful with confabulations, he might be developing alcohol- related brain injury/Wernicke's encephalopathy. EEG 03/28 was obscured by artifact Patient received B12 IM injection on 04/03. -Follow seizure precaution and avoid seizure triggers -Continue home Keppra 1000 mg BID -Continue gabapentin 100 mg TID -Agree with Librium taper -Continue thiamine 500 mg IV TID for 2 days (04/03-04/04) and subsequently 250 mg qday for 5 days followed by 100 mg qday -Pending MRI brain with and without contrast to evaluate for structural changes -Follow-up with thiamine, homocystine, and methylmalonic acid levels -Strict alcohol cessation to prevent further complications, recommend alcohol rehab Patient was discussed with the Neurology attending, Dr. Field. Thank you for allowing us to participate in the care of this patient. Elyssa Anderson, PGY-3 Attending Provider Attestation/Addendum I personally have seen and examined the patient at the bedside and agree with residents findings, assessment and plan of care. Even though repeat EEG was normal without any epileptiform discharges, we will continue with the Keppra and gabapentin as before. Follow-up with MRI brain and labs to look for secondary causes for memory loss and progressive cognitive impairment. Needs to be given resources in [place] for alcohol rehab upon discharge.
--- NOTE | 2025-04-03 18:52 | PC.NURSE ---
[facility] IN MRI CALLED MRI WILL NO LONGER BE DONE TODAY. DR WALL MADE AWARE OKAY FOR MRI TO BE DONE TOMORROW.
[2025-04-04] VITALS (9 sets, daily range): BP systolic 91–104; BP diastolic 50–74; PULSE 76–108; RESP 17–19; TEMP 36.6–37.6; O2SAT 95
--- NOTE | 2025-04-04 | XR_ITS ---
Examination: MRI of brain without intravenous contrast. MRI brain with intravenous contrast. Date and time of exam: April 04, 2025, 1117 hours INDICATIONS: Seizure disorder since teenager, grand mal seizures Technique: Multiple axial and sagittal images of the brain to been obtained. Siemens high-resolution 1.52 Ita short bore scanner utilized. Sagittal sections, T1 weighted images, TR 500, TE 14, are performed. Axial sections proton-density and T2-weighted images have been obtained. Inversion recovery axial images, TR 9260, TE 111, TR 2500. Diffusion weighted images, axial sections, TR 4800, TE 128, B value 1000. Axial sections, ADC map, TR 4800, TE 128. Axial and coronal images were also obtained post 13 cc gadolinium administered intravenously. Findings:: Enlargement of the sella turcica is not present. The optic chiasm and infundibular stalk are not remarkable. There is no localized enlargement of the medulla or faiza. Fourth ventricle and cerebellar tonsils appear normal in position. No subacute area of hemorrhage density is seen. Fourth ventricle is midline. Mass in the cerebellopontine angle region is not evident. 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 Mass effect upon the ventricular system is not identified. Diffusion-weighted images demonstrate no focus of restricted diffusion Contrast images demonstrate no abnormal cerebellar or cerebral lesions Impression: Negative for acute hemorrhage mass effect or midline shift No acute infarct Findings consistent with demyelinating disease
[2025-04-04] MEDS: THIAMINE INJ 500 MG in SODIUM CHLORIDE 0.9% 100 ML 205 MG IV ×3 (05:31→21:38)
[2025-04-04] MEDS: GABAPENTIN 100 MG CAPSULE PO ×3 (05:33→21:37)
[2025-04-04 06:10] LABS: Basophils # (Auto) 0.1 Thou/mm3 (0.0-0.2); Basophils % (Auto) 1 % (0-2.5); Eosinophils # (Auto) 0.2 Thou/mm3 (0.0-0.5); Eosinophils % (Auto) 3 % (0-10); Hematocrit 24.0 % (41.0-53.0); Immature Granulocytes Auto 0.18 Thou/mm3 (0.00-0.00); Lymphocytes # (Auto) 1.1 Thou/mm3 (1.0-4.8); Lymphocytes % (Auto) 12 % (10-50); Mean Corpuscular HGB Conc 35.4 g/dl (31.0-37.0); Mean Corpuscular Hemoglobin 37.9 pg (25.0-35.0); Mean Corpuscular Volume 107 fL (80-100); Monocytes # (Auto) 1.7 Thou/mm3 (0.0-0.8); Monocytes % (Auto) 18 % (0-12); Neutrophils # (Auto) 6.1 Thou/mm3 (1.8-7.7); Neutrophils % (Auto) 65 % (37-80); Nucleated Red Blood Cell # 0.00 Thou/mm3 (0.00-0.00); Nucleated Red Blood Cell % 0 /100 WBC (0); Platelet Count 289 Thou/mm3 (140-440); RDW Standard Deviation 51.2 fL (35.1-43.9); Red Blood Count 2.24 Miln/mm3 (4.50-5.90); White Blood Count 9.3 Thou/mm3 (3.8-10.6)
[2025-04-04 06:22] LABS: Alanine Aminotransferase 51 U/L (10-49); Albumin, Serum 3.6 gm/dL (3.5-5.0); Alkaline Phosphatase 123 U/L (46-116); Anion Gap 10 (7-16); Aspartate Amino Transferase 70 U/L (0-34); BUN/Creatinine Ratio 7 Ratio (12-20); Bilirubin,Total 0.4 mg/dL (0.3-1.2); Blood Urea Nitrogen 5 mg/dL (9-23); Calcium 8.8 mg/dL (8.3-10.6); Calcium (Corrected) 9.1 mg/dL (8.5-10.1); Carbon Dioxide 24.1 mMol/L (20.0-31.0); Chloride 98 mMol/L (98-107); Creatinine (Component) 0.7 mg/dL (0.6-1.3); Estimated Creatinine Clearance 134.4 mL/min (>60); Glucose 100 mg/dL (74-106); Magnesium 1.1 mg/dL (1.6-2.6); Osmolality,Calculated 261 (275-295); Phosphorous 3.4 mg/dL (2.4-5.1); Potassium 4.0 mMol/L (3.4-5.1); Sodium 132 mMol/L (136-145); eGFR > 60 See Note
[2025-04-04 07:58] LABS: Hemoglobin 8.5 g/dL (13.5-16.0)
--- NOTE | 2025-04-04 08:15 | PC.NURSE ---
COORDINATED CARE WITH [facility] WAYNE, SHE WILL WORK PT IN BETWEEN OUTPATIENT PATIENTS. MRI SCREENING DONE. DR. OLVERA MADE AWARE.
[2025-04-04] MEDS: Magnesium Sulfate 4 GM Ivpb 4 GM/50 ML BAG IV ×2 (08:26→12:18)
[2025-04-04] MEDS: HEPARIN SOD INJ 5000 UNIT/ML VIAL SC ×2 (08:27→20:41)
[2025-04-04] MEDS: LORazepam 2 MG/ML VIAL IVP (11:04)
--- NOTE | 2025-04-04 12:33 | PC.CC ---
spoke to Dr. Reddy about HH order he entered. Informed him pt does not have a PCP and that the patient works and is not homebound. He does not qualify for HH. Dr. Reddy stated to cancel order.
[2025-04-04 13:24] LABS: Albumin/Globulin Ratio 1.2 (1.2-2.2); Globulin 2.9 gm/dL (2.3-3.5); Total Protein 6.5 gm/dL (5.7-8.2)
--- NOTE | 2025-04-04 13:34 | PD.RESPRO ---
Documentation for date of: 04/04/25 Subjective Subjective Interval history: Overnight noted that patient fell due to leaning on dresser that had wheels. Denies head strike or specific area of pain. Overnight CIWA 1-4. Patient seen examined at bedside. CIWA 0. Patient endorses poor sleep and intermittent anxiety, which are common for him. 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 Pending neuro recs. Mg 1.1, repleted with 8g over 8 hours. Continue high-dose IV thiamine plan to transition to p.o. tomorrow. Exam Vital Signs Temp Pulse Resp BP Pulse Ox O2 Del Method O2 Flow Rate 98.1 F 87 18 91/50 L 95 Room Air 1 04/04/25 10:47 04/04/25 12:40 04/04/25 10:47 04/04/25 10:47 04/04/25 10:47 04/04/25 10:47 03/31/25 04:00 Narrative Exam GENERAL: AOx3, no acute distress, no tremors, slow speech HEENT: mucous membranes moist, bilateral sclera anicteric CARDIOVASCULAR: regular rate and rhythm, S1/S2 present, no murmurs appreciated PULMONARY: clear to auscultation bilaterally, no rales/rhonchi/wheezes ABDOMINAL: soft, non-tender, non-distended, no rebound/guarding, bowel sounds present EXTREMITIES: no peripheral edema SKIN: warm and dry, intact, no rashes NEURO: CN II-XII grossly intact, no focal deficits, alert, following commands Objective Labs 04/04/25 05:06 04/04/25 05:06 Labs: Laboratory Results - last 24 hr 03/28/25 04/04/25 04:39 05:06 WBC 9.3 RBC 2.24 L Hgb 8.5 L Hct 24.0 L MCV 107 H MCH 37.9 H MCHC 35.4 RDW Std Deviation 51.2 H Plt Count 289 D Neut % (Auto) 65 Lymph % (Auto) 12 [place] % (Auto) 18 H Eos % (Auto) 3 Baso % (Auto) 1 Neut # (Auto) 6.1 Lymph # (Auto) 1.1 [place] # (Auto) 1.7 H Eos # (Auto) 0.2 Baso # (Auto) 0.1 Immature Gran # (Auto) 0.18 H Absolute Nucleated RBC 0.00 Immature Gran % 2 H Nucleated RBC % 0 Sodium 132 L Potassium 4.0 Chloride 98 Carbon Dioxide 24.1 Anion Gap 10 BUN 5 L Creatinine 0.7 Estim Creat Clear Calc 134.4 eGFR > 60 BUN/Creatinine Ratio 7 L Glucose 100 Calculated Osmolality 261 L Calcium 8.8 Corrected Calcium 9.1 Phosphorus 3.4 Magnesium 1.1 L Total Bilirubin 0.4 AST 70 H ALT 51 H Alkaline Phosphatase 123 H Total Protein 6.5 Albumin 3.6 Globulin 2.9 Albumin/Globulin Ratio 1.2 Misc Test Result See Sep Rpt Quality Measures Quality Measures VTE prophylaxis Assessment & Plan Assessment Current Active Medications: Generic Name Dose Route Start Last Admin Trade Name Freq PRN Reason Stop Dose Admin Acetaminophen 650 mg 03/27/25 08:22 04/03/25 01:36 Acetaminophen 325 Mg Tablet PO 04/26/25 08:21 650 mg Q6H PRN Administration Fever >100.4, Pain 1-3 Artificial Tears 0 drop 03/30/25 13:41 Artificial Tears 225 Drop/15 Ml Btl BOTH EYES 04/29/25 13:40 PRN PRN TO KEEP EYES MOIST Chlordiazepoxide HCl 25 mg 04/04/25 09:00 04/04/25 08:26 Chlordiazepoxide Hcl 25 Mg Capsule PO 04/09/25 08:59 25 mg QDAY CK Administration Diazepam 5 mg 04/01/25 16:59 Diazepam Inj 5 Mg/Ml Vial 2 Ml IVP X1 PRN Breakthrough Agitation Gabapentin 100 mg 04/01/25 14:00 04/04/25 05:33 Gabapentin 100 Mg Capsule PO 05/01/25 13:59 100 mg TID CK Administration Heparin Sodium (Porcine) 5,000 unit 03/27/25 09:00 04/04/25 08:27 Heparin Sod Inj 5000 Unit/Ml Vial SC 04/10/25 08:59 5,000 unit Q12HR CK Administration Thiamine HCl 500 mg/ Sodium 105 mls @ 205 mls/hr 04/03/25 08:30 04/04/25 05:31 Chloride IV 04/04/25 23:30 205 mls/hr TID CK Administration Magnesium Sulfate 4 gm in 50 mls @ 12.5 mls/hr 04/04/25 12:00 04/04/25 12:18 Magnesium Sulfate Ivpb IV 04/04/25 15:59 12.5 mls/hr X1 ONE Administration Levetiracetam 1,000 mg 04/01/25 21:00 04/04/25 08:26 Levetiracetam 250 Mg Tablet PO 05/01/25 20:59 1,000 mg BID CK Administration Lorazepam 0.5 mg 04/01/25 16:59 04/04/25 05:32 Lorazepam 0.5 Mg Tablet PO 04/06/25 16:58 0.5 mg Q4HR PRN Administration CIWA Score 2-6 Lorazepam 1 mg 04/01/25 16:59 Lorazepam 0.5 Mg Tablet PO 04/06/25 16:58 Q4HR PRN CIWA SCORE 7-11 Lorazepam 2 mg 04/01/25 16:59 Lorazepam 0.5 Mg Tablet PO 04/06/25 16:58 Q4HR PRN CIWA SCORE 12-15 Ondansetron HCl 4 mg 03/27/25 08:22 Ondansetron Inj 2 Mg/Ml Inj 2 Ml IVP 04/26/25 08:21 Q6H PRN NAUSEA OR VOMITING Protocol Thiamine HCl 250 mg 04/05/25 09:00 Thiamine 100 Mg Tablet PO 04/09/25 23:30 QDAY Davon Chapin 39y/o M, with PMH of seizure disorder and alcohol use, presented to the ED on 03/27/2025 for seizure activity after a fall. Patient was admitted for management of breakthrough seizures. #Alcohol dependence with withdrawal #Alcohol Use disorder #Alcohol related liver disease #Transaminitis, stable #Macrocytic anemia Patient denies consuming alcohol for months, but previously in ED, patient noted that he drank sips of alcohol AST 237, ALT 35, ALP 142, platelet count low 130 Ethyl Alcohol <3 The CIWA score on 03/29/2025 2pm was 27. Patient was hallucinating with agitation. Patient received Librium 50mg x1, Gabapentin 600mg x1, Diazepam 10mg IV x1, and Zipraxidone IM 10mg x1. Patient's family expressed concern for progressive memory issues with confabulation. Patient expressed concern for recent gait abnormalities. Concern for possible Warnicke?Korsakoff syndrome. B12 and folate wnl. 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 3 times daily - Folic acid 1mg po bid - Thiamine 500 mg IV TID for 2 days (04/03-04/04) and subsequently 250 mg QD for 5 days followed by 100 mg QD - CIWA protocol with oral Ativan - PT eval: Will need home health PT, insurance did not approve will refer for outpatient PT #Seizure, tonic clonic #Episode of fall #History of Seizure disorder -Witnessed seizure with whole body shaking, Postictal confusion/headache/Fatigue, abrupt onset, Amnesia to the event. Lower lip trauma, However, no tongue bite. -Head CT (03/27/2025): Negative for acute hemorrhage, mass effect or midline shift -Elevated creatinine kinase total 452, and lactic acid 2.2 -Patient's breakthrough seizure likely due to poor compliance of anti-seizure medications and heavy alcohol use. Repeat EEG unremarkable Plan: -Resumed Home med Keppra 1000mg po bid - Neurology consulted, recs appreciated: Ordered thiamine, homocystine and MMA, MRI brain with and without contrast ordered to evaluate for structural changes -Seizure precautions, neurochecks every 4 hour #Fever episode, resolved #Electrolyte abnormalities #Hypomagnesemia, resolved #Hypophosphatemia, resolved #Hypokalemia, resolved -Correct and replace electrolytes as needed Disposition: Med surg Diet: Regular Diet GI prophylaxis: Not indicated DVT prophylaxis: Heparin 5000units SC q12hr Code: FULL Case discussed with Attending Physician Dr. Reddy and PGY-3 Dr. Isa Chao, DO Internal Medicine PGY-1 Senior Resident Attestation: The patient fell off the weight overnight, as he was trying to get out of bed, but did not had any injury. Vital signs been fairly stable, labs are stable. His CIWA score this morning was 0. MRI brain revealed increased white matter signal evident, old infarct in the right temporal lobe, scattered punctate foci of increased signal in the frontal white matter, right frontal parietal lobe white matter and posterior parietal white matter FLAIR. The patient is pending neuro recommendations. I discussed with and supervised the consultants intern physician involved in the care of this patient. I personally saw and examined the patient and discussed the assessment and plan with the entire medicine team, including my attending. I agree with the assessment and plan as documented above. Yong Moss MD PGY3 Internal Medicine Attending Provider Attestation/Addendum I have discussed and was present for the essential components of the history, physical examination, diagnosis, and treatment plan with the resident. I agree with the patient's care as documented by the resident and amended herein by me. Dani Reddy DO. Although this document has been carefully reviewed, there may still be some phonetic and other typographical errors. These errors are purely grammatical due to imperfections in the software program and should not be construed in any way to compromise the substance of the patient's medical care during this visit.
--- NOTE | 2025-04-04 14:00 | ECHO_ITS ---
Patient Info Name: Davon Blanchard Age: 39 years : 1985 Gender: Male Ht: 178 cm Wt: 68 kg BSA: 1.82 m2 BP: 97 / 56 mmHg HR: 85 bpm Exam Date: 04/04/2025 3:03 PM Admit Date: 03/27/2025 Site: [facility] Room Number: [id number] Patient Status: I Exam Type: CA echo doppler complete Cut Off Saw Set Up Operator: Mamta Anand Ordering Physician: Ariadne Chao Study Info Indications old CVA - Contrast/Agitated Saline Contrast/Ag. Saline: Agitated Saline Amount: --- ml IV Access Condition: patent with no signs of infiltration Primary Location: [id number] Left Ventricular Outflow Tract Name Value Normal LVOT 2D LVOT Diameter 2.0 cm LVOT Doppler LVOT Peak Velocity 94 cm/s LVOT Mean Gradient 2 mmHg LVOT VTI 17 cm LVOT VTI/AV VTI Ratio 0.8 LVOT Stroke Volume 55 ml Pulmonic Valve Name Value Normal PV Doppler PV Peak Velocity 89 cm/s Mitral Valve Name Value Normal MV Annular TDI MV Septal e' Velocity 10.4 cm/s MV Lateral e' Velocity 11.2 cm/s MV e' Average 10.80 cm/s Tricuspid Valve Name Value Normal TV Regurgitation Doppler TR Peak Velocity 140 cm/s Estimated PAP/RSVP RA Pressure 3 mmHg <=5 PA Systolic Pressure 11 mmHg <36 RV Systolic Pressure 11 mmHg <36 TV Annular TDI TV Lateral Lady s' Velocity 14.1 cm/s >=9.5 Aortic Valve Name Value Normal AV 2D/MM AV Cusp Sep (MM) 1.3 cm AV Doppler AV Peak Velocity 122 cm/s AV Mean Gradient 3 mmHg AV VTI 22 cm AV Area (Cont Eq VTI) 2.5 cm2 >=3.0 AV Area (Cont Eq Branden) 2.4 cm2 AV DI (Branden) 0.77 AV Regurgitation 2D LVOT Area 3.1 cm2 Ventricles Name Value Normal LV Dimensions 2D/MM IVS Diastolic Thickness (2D) 0.8 cm 0.6-1.0 LVID Diastole (2D) 5.3 cm 4.2-5.8 LVIW Diastolic Thickness (2D) 0.7 cm 0.6-1.0 LVID Systole (2D) 3.7 cm 2.5-4.0 LVOT Diameter 2.0 cm LV Mass (2D Cubed) 138.34 g 88.00-224.00 LV Mass Index (2D Cubed) 76 g/m2 49-115 Relative Wall Thickness (2D) 0.26 <=0.42 IVS/LVIW Diastolic Thickness (2D) 1.14 0.00-1.50 LV Fractional Shortening/Ejection Fraction 2D/MM LV Fractional Shortening (2D) 30 % 25-43 LV EF (2D Teichholz) 57 % RV Dimensions 2D/MM TV Lateral Lady s' Velocity 14.1 cm/s >=9.5 Atria Name Value Normal LA Dimensions LA Volume (4C A-L) 27 ml LA Volume (BP A-L) 31 ml Left Ventricle Left ventricular chamber dimension is normal. Left ventricular systolic function is normal with visually estimated ejection fraction of 60-65%. There is normal geometry noted in the left ventricle. Left ventricular segmental wall motion is normal. There is indeterminate diastolic function in the left ventricle. Right Ventricle Right ventricular chamber dimension is normal. Right ventricular systolic function is normal. Left Atrium Left atrial chamber dimension is normal. Right Atrium Right atrial chamber dimension is normal. Aortic Valve The aortic valve is trileaflet. There is no aortic valve sclerosis. There is no aortic valve stenosis with a peak velocity of 122 cm/s, mean gradient of 3 mmHg, and aortic valve area of 2.5 cm2. There is no aortic valve regurgitation. Pulmonic Valve The pulmonic valve is normal. There is no pulmonic valve stenosis. There is no pulmonic regurgitation. Mitral Valve The mitral valve has normal leaflets. There is no mitral valve stenosis. There is trace mitral valve regurgitation. Tricuspid Valve The tricuspid valve leaflets are normal. There is no tricuspid valve stenosis. There is trace tricuspid valve regurgitation. No pulmonary hypertension, estimated pulmonary arterial systolic pressure is 11 mmHg and systemic blood pressure of 97 mmHg in systole. Pericardium/Pleural The pericardium appears normal. No pleural effusion visualized. Inferior Vena Cava Normal inferior vena cava with >50% collapse upon inspiration consistent with normal right atrial pressure, 3 mmHg. Aorta The aortic measurements are indexed to age and body surface area. The aortic root at the sinus of Valsalva is not well visualized. The prox ascending aorta is not well visualized. Summary 1. Left ventricle size is normal and systolic function is normal. Estimated ejection fraction is 60-65%. There is indeterminate diastolic function. 2. Right ventricle chamber size is normal and systolic function is normal. Estimated RVSP is 11 mmHg. 3. There is trace mitral valve regurgitation. 4. There is trace tricuspid valve regurgitation. 5. The left atrium is normal. The right atrium is normal. 6. Normal IVC with estimated RA pressure 3 mmHg. 7. No evidence of PFO. Negative bubble study. Report Signatures Finalized by Chela Gross on 04/04/2025 05:08 PM
--- NOTE | 2025-04-04 16:58 | XR_ITS ---
Examination: Duplex scan of the upper extremity, unilateral left Date and time of exam: April 04, 2025, 1717 hours INDICATIONS: Onset left arm pain today Technique: Duplex scan of the extremity veins using B-mode/grayscale imaging and Doppler spectral analysis and color flow Attention is directed to internal echogenicity, compression and augmentation involving these veins, color flow assessment, spectral analysis Findings: Major deep venous structures in the extremity demonstrate normal course and caliber. There is no evidence of deep vein thrombosis. Normal color flow and spectral analysis Impression: Negative for DVT..
[2025-04-04 20:16] LABS: HIV (1&2) Antibody Rapid Non-Reactive
[2025-04-04] MEDS: ACETAMINOPHEN 325 MG TABLET 650 MG PO (20:34)
[2025-04-04] MEDS: MELATONIN 3 MG TABLET 6 MG PO (20:39)
[2025-04-05] VITALS (9 sets, daily range): BP systolic 101–110; BP diastolic 58–76; PULSE 67–81; RESP 18; TEMP 36.3–36.4; O2SAT 96–97
[2025-04-05] MEDS: GABAPENTIN 100 MG CAPSULE PO (05:13)
[2025-04-05 06:15] LABS: Basophils # (Auto) 0.1 Thou/mm3 (0.0-0.2); Basophils % (Auto) 1 % (0-2.5); Eosinophils # (Auto) 0.4 Thou/mm3 (0.0-0.5); Eosinophils % (Auto) 3 % (0-10); Hematocrit 28.4 % (41.0-53.0); Hemoglobin 9.5 g/dL (13.5-16.0); Immature Granulocytes Auto 0.24 Thou/mm3 (0.00-0.00); Lymphocytes # (Auto) 2.0 Thou/mm3 (1.0-4.8); Lymphocytes % (Auto) 17 % (10-50); Mean Corpuscular HGB Conc 33.5 g/dl (31.0-37.0); Mean Corpuscular Hemoglobin 37.0 pg (25.0-35.0); Mean Corpuscular Volume 111 fL (80-100); Monocytes # (Auto) 1.8 Thou/mm3 (0.0-0.8); Monocytes % (Auto) 15 % (0-12); Neutrophils # (Auto) 7.6 Thou/mm3 (1.8-7.7); Neutrophils % (Auto) 63 % (37-80); Nucleated Red Blood Cell # 0.00 Thou/mm3 (0.00-0.00); Nucleated Red Blood Cell % 0 /100 WBC (0); Platelet Count 399 Thou/mm3 (140-440); RDW Standard Deviation 55.4 fL (35.1-43.9); Red Blood Count 2.57 Miln/mm3 (4.50-5.90); White Blood Count 12.1 Thou/mm3 (3.8-10.6)
[2025-04-05 06:36] LABS: Alanine Aminotransferase 44 U/L (10-49); Albumin, Serum 4.0 gm/dL (3.5-5.0); Albumin/Globulin Ratio 1.3 (1.2-2.2); Alkaline Phosphatase 143 U/L (46-116); Anion Gap 8 (7-16); Aspartate Amino Transferase 54 U/L (0-34); BUN/Creatinine Ratio 11 Ratio (12-20); Bilirubin,Total 0.4 mg/dL (0.3-1.2); Blood Urea Nitrogen 8 mg/dL (9-23); Calcium 9.1 mg/dL (8.3-10.6); Calcium (Corrected) 9.1 mg/dL (8.5-10.1); Carbon Dioxide 26.0 mMol/L (20.0-31.0); Chloride 101 mMol/L (98-107); Creatinine (Component) 0.7 mg/dL (0.6-1.3); Estimated Creatinine Clearance 134.4 mL/min (>60); Globulin 3.2 gm/dL (2.3-3.5); Glucose 89 mg/dL (74-106); Magnesium 1.8 mg/dL (1.6-2.6); Osmolality,Calculated 267 (275-295); Phosphorous 5.0 mg/dL (2.4-5.1); Potassium 5.0 mMol/L (3.4-5.1); Sodium 135 mMol/L (136-145); Total Protein 7.2 gm/dL (5.7-8.2); eGFR > 60 See Note
[2025-04-05] MEDS: THIAMINE 100 MG TABLET 250 MG PO (08:57)
[2025-04-05] MEDS: HEPARIN SOD INJ 5000 UNIT/ML VIAL SC (09:03)
--- NOTE | 2025-04-05 09:05 | PC.SS ---
Follow up note: Neuro recommendations pending. Pt will return home upon dc.
--- NOTE | 2025-04-05 14:35 | PC.SS ---
SS met with pt and provided him with [employer]. Pt was requesting information for housing. SS also provided pt with demographic information for the Welfare office in [place]. Pt states he is staying with his mom in [facility] but resides in [place]. Pt state his sister will provide transportation.
--- NOTE | 2025-04-05 14:42 | ESDS_ITS ---
Planned Discharge Date 04/05/25 DS: Providers Provider Date of admission: 03/27/25 08:22 Primary care physician: Physician No Primary/Family Admitting Provider: Lianne Garcia DO Attending Provider on Admission: Joel Reddy DO Consults: 03/27/25 08:29 Consult to Neurology / Tele-Neurology Routine Comment: Breakthrough Seizures Consulting Provider: Giuseppe Field 04/02/25 11:23 Referral Physical Therapy Routine Comment: Physician Instructions: Attending Provider on DC: Joel Reddy DO Discharging Provider: Joel Reddy DO DS: Diagnosis Problem List Completed Was Problem List Reviewed/Reconciled?: Yes Hospital Course Hospital Course Hospital course: Summary: Davon Blanchard 39y/o M, with PMH of seizure disorder and alcohol use, presented to the ED on 03/27/2025 for seizure activity after a fall, admitted for management of breakthrough seizures and alcohol withdrawal. Patient denied consuming alcohol for months, but previously in ED, patient noted that he drank sips of alcohol, and reported inconsistency in taking Keppra medication daily. In the ED, patient had witnessed seizure and was medically treated, breaking the seizure. Seizure was relatively under control following administration of antiseizure medication however hospital course prolonged due to significant alcohol withdrawal as patient initially was extremely agitated and having hallucinations. On admission CIWA 27 and alcohol withdrawal treated accordingly. Neurology was consulted. EEG done showing no epileptiform waves but diffuse slowing signifying encephalopathy. MRI showed increased white matter signal evident, old infarct in right temporal lobe Sheeba scattered punctate foci of increased signal and frontal white matter, negative for acute processes. Neurology aware and symptoms likely secondary to chronic alcohol use. Of note, patient did experience mechanical fall as patient leaned weight on cabinet that had wheels however denied head strike, loss of consciousness or bodily pain thus no imaging was deemed to be necessary. Furthermore of note, on 04/04/2025, patient did experience left forearm pain due to infiltration of IV. Left upper extremity ultrasound negative for DVT. On discharge, patient is hemodynamically stable, labs and vitals reviewed to be stable patient is ready to be discharged home. Imaging: Head CT (03/27/2025): Negative for acute hemorrhage, mass effect or midline shift MRI (04/04/25): increased white matter signal evident, old infarct in right temporal lobe Sheeba scattered punctate foci of increased signal and frontal white matter, finding consistent with demyelinating disease, negative for acute processes Discharge Recommendations: - Please take all medications as prescribed - START thiamine 250 mg twice daily and folic acid 1 mg daily - STOP alcohol use - CONTINUE taking home Keppra 1g twice daily and do not miss doses - Continue all home medications except as above - Please follow up with your PCP within one week of discharge - Please follow up with your neurologist within one week of discharge - If your symptoms worsen, please seek immediate medical attention and return to your nearest emergency room. 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 Reddy, and PGY-3 Dr. Moss. Ariadne Chao, DO Internal Medicine, PGY-1 Senior Resident Attestation: I discussed with and supervised the employee communications intern physician involved in the care of this patient. I personally saw and examined the patient and discussed the assessment and plan with the entire medicine team, including my attending. I agree with the discharge plan as documented above. Yong Moss MD PGY3 Internal Medicine Time Spent with Patient Time attestation: Total time spent providing and/or coordinating discharge services: Time spent: Greater than 30 minutes Home Health Home Health Referral Orders: 04/04/25 09:26 Home Health Referral Routine Reason For Exam: debility Home-Bound The patient must either because of illness or injury, need the aid of supportive devices such as crutches, canes, wheelchairs, and walkers; the use of special transportation; or the assistance of another person in order to leave their place of residence; OR have a condition such that leaving his or her home is medically contraindicated. In addition, the patient also meets the following criteria: patient is normally unable to leave the home and leaving home requires considerable taxing effort. Addendum to Home Health Certification Practitioner's Certification: I certify that the patient has been under my care in the hospital and the care of attending physician (see below). We had a [id number] encounter on (see date below). My clinical findings indicate that the patient is home bound per the above criteria and the Home Health Services noted in these orders are medically necessary. The primary reason for the [id number]-[id number] encounter is related to the fact that the patient requires home health services. Date Certifying [id number] Physician Encounter: 03/27/25 Physician's Name who will Assume Oversight for HH Services: Physician No Primary/Family CLINICAL NURSE MANAGER - Community Resources: No PT to Evaluate: Yes PT to evaluate and provide a treatmnet plan to increase patient's mobility and strength. Wound Care: No IV Therapy: No Discontinue PICC Line Once Treatment Complete: No RN Safety Evaluation: Yes RN to evaluate and create a plan of care that will produce positive outcomes. Palliative Treatment: No Palliative treatment and evaluate the need for hospice. Home Health Aide - Personal Care: No Home Health Aide to assist with any ADL's. Exam Vital Signs Temp Pulse Resp BP Pulse Ox O2 Del Method O2 Flow Rate 97.5 F 71 18 108/67 96 Room Air 1 04/05/25 11:40 04/05/25 11:40 04/05/25 11:40 04/05/25 11:40 04/05/25 11:40 04/05/25 11:40 04/04/25 23:58 Narrative Exam GENERAL: AOx3, no acute distress, no tremors, slow speech HEENT: mucous membranes moist, bilateral sclera anicteric CARDIOVASCULAR: regular rate and rhythm, S1/S2 present, no murmurs appreciated PULMONARY: clear to auscultation bilaterally, no rales/rhonchi/wheezes ABDOMINAL: soft, non-tender, non-distended, no rebound/guarding, bowel sounds present EXTREMITIES: no peripheral edema SKIN: warm and dry, intact, no rashes NEURO: CN II-XII grossly intact, no focal deficits, alert, following commands Discharge Plan Plan Patient Disposition: Home w/HOME HEALTH Patient condition on transfer: Stable Care Plan Goals: - You have been started on folic acid and Thiamine - Stop drinking alcohol. - Follow up with Neurology within 2 weeks of discharge - Follow up with your primary care physician within 1 week of discharge to review your vitamin levels. If you do not have a primary care physician, please follow up with the [facility] Residents clinic ([phone]) ? If you experience any new, worsening or persistent symptoms either call your primary doctor, or dial 911 or present to the emergency department. Prescriptions/Referrals Prescriptions/Med Rec: New thiamine mononitrate (vit B1) 250 mg tablet 250 mg PO BID 30 Days Qty: 60 2RF folic acid 1 mg tablet 1 mg PO QDAY Qty: 30 2RF levetiracetam 1,000 mg tablet 1,000 mg PO BID 30 Days Qty: 60 0RF Discontinued levetiracetam 1,000 mg tablet 1,000 mg PO Q12H Referrals: No Primary/Family,Physician [Primary Care Provider] Giuseppe Field MD [Physician, Neurology] Patient/Caregiver Discharge Instructions Discharge Activity: as per physical therapy Education Materials: Alcoholism: Getting Help, Alcohol Addiction, Addiction Recovery Counseling Print Language: [place] Stand Alone Forms: Magdalene Award Info., Patient Portal Info Letter Discharge Order Discharge Orders: Discharge (Routine); Ordered 04/05/25 Ordered By: Orestes Lozano Quality Discharge Quality Measures VTE prophylaxis Attestestation Attestation I have discussed and was present for the essential components of the discharge history, physical examination, diagnosis, and discharge treatment plan with the resident. I agree with the patient's discharge care as documented by the resident and amended herein by me. Dani Reddy DO. The patient understood all discharge instructions, all questions were answered satisfactorily. The patient was instructed to return to the Emergency Department is symptoms worsened or persisted. Although this document has been carefully reviewed, there may still be some phonetic and other typographical errors. These errors are purely grammatical due to imperfections in the software program and should not be construed in any way to compromise the substance of the patient's medical care during this visit.
--- NOTE | 2025-04-05 14:54 | ESPR_ITS ---
Documentation for date of: 04/05/25 Subjective Subjective Interval history: Patient seen at bedside, conversational and a bit more cohesive today. CIWA today 0-2. MRI results explained to the patient and the harmful effects should he continue to drink. Patient states that he will quit drinking. He requests 2 work notes for his jobs as he states his jobs do not currently know that he is hospitalized. Exam Vital Signs Temp Pulse Resp BP Pulse Ox O2 Del Method O2 Flow Rate 97.5 F 71 18 108/67 96 Room Air 1 04/05/25 11:40 04/05/25 11:40 04/05/25 11:40 04/05/25 11:40 04/05/25 11:40 04/05/25 11:40 04/04/25 23:58 Narrative Exam Physical Exam General: Awake and in no acute distress. Conversational however slow at times and deviates from topic. HEENT: Normocephalic, atraumatic, mucous membranes moist. Heart: Regular rate and rhythm, normal S1 and S2, no murmurs. Lungs: Clear to auscultation with no wheezing or crackles. Abdomen: Soft, nondistended, nontender, positive bowel sounds. ?No guarding or rebound tenderness. Neurologic: Alert and oriented x3, no gross neurological deficit, and patient able to move all 4 extremities. Extremities: No edema. Skin: No rash or ecchymoses. Objective Labs 04/05/25 04:52 04/05/25 04:52 Labs: Laboratory Results - last 24 hr 04/04/25 04/05/25 05:06 04:52 WBC 12.1 H RBC 2.57 L Hgb 9.5 L Hct 28.4 L MCV 111 H MCH 37.0 H MCHC 33.5 RDW Std Deviation 55.4 H Plt Count 399 D Neut % (Auto) 63 Lymph % (Auto) 17 [place] % (Auto) 15 H Eos % (Auto) 3 Baso % (Auto) 1 Neut # (Auto) 7.6 Lymph # (Auto) 2.0 [place] # (Auto) 1.8 H Eos # (Auto) 0.4 Baso # (Auto) 0.1 Immature Gran # (Auto) 0.24 H Absolute Nucleated RBC 0.00 Immature Gran % 2 H Nucleated RBC % 0 Sodium 135 L Potassium 5.0 D Chloride 101 Carbon Dioxide 26.0 Anion Gap 8 BUN 8 L Creatinine 0.7 Estim Creat Clear Calc 134.4 eGFR > 60 BUN/Creatinine Ratio 11 L Glucose 89 Calculated Osmolality 267 L Calcium 9.1 Corrected Calcium 9.1 Phosphorus 5.0 Magnesium 1.8 Total Bilirubin 0.4 AST 54 H ALT 44 Alkaline Phosphatase 143 H D Total Protein 7.2 Albumin 4.0 Globulin 3.2 Albumin/Globulin Ratio 1.3 HIV 1&2 Antibody Rapid Non-Reactive Quality Measures Quality Measures VTE prophylaxis Assessment & Plan Assessment Current Active Medications: Generic Name Dose Route Start Last Admin Trade Name Freq PRN Reason Stop Dose Admin Acetaminophen 650 mg 03/27/25 08:22 04/04/25 20:34 Acetaminophen 325 Mg Tablet PO 04/26/25 08:21 650 mg Q6H PRN Administration Fever >100.4, Pain 1-3 Artificial Tears 0 drop 03/30/25 13:41 Artificial Tears 225 Drop/15 Ml Btl BOTH EYES 04/29/25 13:40 PRN PRN TO KEEP EYES MOIST Diazepam 5 mg 04/01/25 16:59 Diazepam Inj 5 Mg/Ml Vial 2 Ml IVP X1 PRN Breakthrough Agitation Heparin Sodium (Porcine) 5,000 unit 03/27/25 09:00 04/05/25 09:03 Heparin Sod Inj 5000 Unit/Ml Vial SC 04/10/25 08:59 5,000 unit Q12HR CK Administration Levetiracetam 1,000 mg 04/01/25 21:00 04/05/25 09:00 Levetiracetam 250 Mg Tablet PO 05/01/25 20:59 1,000 mg BID CK Administration Lorazepam 0.5 mg 04/01/25 16:59 04/05/25 09:56 Lorazepam 0.5 Mg Tablet PO 04/06/25 16:58 0.5 mg Q4HR PRN Administration CIWA Score 2-6 Lorazepam 1 mg 04/01/25 16:59 Lorazepam 0.5 Mg Tablet PO 04/06/25 16:58 Q4HR PRN CIWA SCORE 7-11 Lorazepam 2 mg 04/01/25 16:59 Lorazepam 0.5 Mg Tablet PO 04/06/25 16:58 Q4HR PRN CIWA SCORE 12-15 Ondansetron HCl 4 mg 03/27/25 08:22 Ondansetron Inj 2 Mg/Ml Inj 2 Ml IVP 04/26/25 08:21 Q6H PRN NAUSEA OR VOMITING Protocol Thiamine HCl 250 mg 04/05/25 09:00 04/05/25 08:57 Thiamine 100 Mg Tablet PO 04/09/25 23:30 250 mg QDAY CK Administration Plan 39-year-old male with past medical history of alcohol use disorder and possible seizure disorder who presented to the ED on 03/27/2025 for seizure activity at home. Patient was admitted for management of breakthrough seizures and neurology was consulted. #Seizure, tonic clonic #Alcohol withdrawal seizures #History of seizure disorder #Alcohol use disorder #Alcohol related liver disease #Transaminitis, stable #Macrocytic anemia #Possible Wernicke encephalopathy Alcohol-withdrawal related versus medication non-compliance. Patient had witnessed seizure at home and additional seizure in ED. Patient is on Keppra at home, compliance is uncertain. Additionally, patient had denied alcohol use for months but there was a question of whether patient drank alcohol prior to presentation. He presented with very high CIWA of 27 with hallucinations and agitation. As family has noted the patient continues to remain progressively confused and forgetful with confabulations, he might be developing alcohol- related brain injury/Wernicke's encephalopathy. EEG 03/28 was obscured by artifact Patient received B12 IM injection on 04/03. -Follow seizure precaution and avoid seizure triggers -Continue home Keppra 1000 mg BID -Continue gabapentin 100 mg TID -Follow-up with thiamine, homocystine, and methylmalonic acid levels -Strict alcohol cessation to prevent further complications, recommend alcohol rehab Patient was discussed with the Neurology attending, Dr. Field. Thank you for allowing us to participate in the care of this patient. Elyssa Anderson, PGY-3 Attending Provider Attestation/Addendum I personally have seen and examined the patient at the bedside and agreed with resident's findings, assessment and plan of care. Continue with the Keppra. Stable from neurology standpoint for discharge. Reassurance given to the patient and family regarding the workup. Advised about the importance of alcohol cessation and get involved in inpatient rehab services upon discharge.
--- NOTE | 2025-04-05 16:14 | PC.SS ---
SS received call from [employer] THACKER pt is requiring an [employer] for transportation. SS met with pt who is unaware of his mom's address. Pt requires a physical address for [employer] transportation. SS spoke to his sister, Juana who states they will provide transportation around 5pm. Bedside nurse is aware.
[2025-04-06 07:02] LABS: Homocysteine* 21.5 umol/L (< OR = 13.5)
[2025-04-10 06:35] LABS: Methylmalonic Acid, GC/MS/MS* 281 nmol/L (55-335)
[2025-04-10 06:41] LABS: Vitamin B1 (Thiamine)* 34 nmol/L (8-30)
== END 2025-04-05 17:03 | disposition home health service (06) | DRG 53 ==
LOC: SERX 04:35 → SERHOLD 09:07 → S3SX 11:01 → S2NX 03-28 20:04 → S3NX 04-01 19:38
PROVIDERS: Student in an Organized Health Care Education/Training Program; Admitting Provider Internal Medicine; Emergency Provider Emergency Medicine; Visit Provider Student in an Organized Health Care Education/Training Program
DX: G40.409 Other generalized epilepsy and epileptic syndromes, not intractable, without status epilepticus (principal); F17.210 Nicotine dependence, cigarettes, uncomplicated; S01.111A Laceration without foreign body of right eyelid and periocular area, initial encounter; F10.239 Alcohol dependence with withdrawal, unspecified; R50.9 Fever, unspecified; D53.9 Nutritional anemia, unspecified; E83.42 Hypomagnesemia; E83.39 Other disorders of phosphorus metabolism; E87.6 Hypokalemia; R29.6 Repeated falls; S09.90XA Unspecified injury of head, initial encounter; W18.2XXA Fall in (into) shower or empty bathtub, initial encounter; Y92.009 Unspecified place in unspecified non-institutional (private) residence as the place of occurrence of the external cause; Z78.1 Physical restraint status; Z79.899 Other long term (current) drug therapy
CPT/HCPCS: 36415; 70450; 70553; 71045; 76700; 80053; 80061; 80307; 80320; 81001; 82550; 82607; 82728; 82746; 83036; 83090; 83540; 83550; 83605; 83735; 83921; 84100; 84145; 84425; 84439; 84443; 85025; 85046; 85610; 85730; 86703; 87040; 87502; 87635; 90686; 93005; 93225; 93306; 93971; 94762; 95816; 96361; 96374; 96375; 97162; 99284; A4216; A9577; J1644; J1953; J2060; J2250; J2560; J3360; J3411; J3420; J3475; J3480; J3486; J7050; J7120; J7999; A9270; G0480; J9060